=== PATIENT | male | born 1985 | race Caucasian/White ===

== ENCOUNTER 2016-08-04 18:29 | Emergency (ER) | payer BC ==
[~2016-08-04] VITALS: Ht 170.2 cm; Wt 79.5 kg
[~2016-08-04 18:29] MED LIST: HYDR-5688 PO
[2016-08-04 18:33] VITALS: Ht 170.2 cm; Wt 79.5 kg
[2016-08-04] MEDS ORDERED: KETOROLAC TROMETHAMINE 30 MG/ML VIAL IV STA (18:46)
[2016-08-04] MEDS ORDERED: SODIUM CHLORIDE 0.9% 1000ML 1,000 ML IV STA (18:46)
[2016-08-04] MEDS ORDERED: METHYLPREDNISOLONE 125 MG VIAL IV STA (18:46)
[2016-08-04] MEDS ORDERED: ALBU18002 INH (18:57)
[2016-08-04] MEDS ORDERED: AZITTAB PO (18:57)
[2016-08-04] MEDS ORDERED: ADVIN50/60 INH (18:57)
[2016-08-04] MEDS ORDERED: MAGIC SWIZZLE PO ONE (19:00)
[2016-08-04] MEDS ORDERED: PRED50TA PO (19:53)
[2016-08-04] MEDS ORDERED: MBXC PO (19:53)
[2016-08-04 20:10] VITALS: BP 139/86; PULSE 90; TEMP 36.9; O2SAT 99
--- NOTE | 2016-08-04 20:55 | EMERGENCY ROOM VISIT NOTE ---
History Report prepared by Triston: Rivera Tran Under the Supervision of: Dr. Gary Judge D.O. First contact with patient: 18:36 Chief Complaint: SORETHROAT Stated Complaint: REFERRED BY TESTED POS. FOR STREP History of Present Illness The patient is a 30 year old male who presents to the Emergency Room with complaints of a persistent sore throat since being diagnosed with Strep throat three days ago. The patient had positive culture results for Strep. He was started on Azithromycin which he has been taking for three days. He is allergic to Penicillins. The patient's throat has not improved since starting the antibiotics. He also complains of dizziness and left ear pain. The patient has not been able to eat or drink secondary to pain with swallowing. The patient called [facility] today and was referred to the ED. The patient's son also tested positive for strep. Patient denies headache, change in vision, neck stiffness, trouble opening his mouth, fevers greater than 100.4, chest pain , shortness of breath, nausea, and vomiting. Source of History: patient Onset: three days ago Position: throat Quality: other (sore) Timing: other (persistent) Modifying Factors (Worsening): other (swallowing) Associated Symptoms: No fevers, No headache, No chest pain, No SOB, No nausea, No vomiting, No melena, No diarrhea, No urinary symptoms Review of Systems See HPI for pertinent positives & negatives. A total of 10 systems reviewed and were otherwise negative. Past Medical & Surgical Medical Problems: (1) Asthma (2) Chronic back pain (3) [place] Teeth Removal Family History Hypertension Social History Smoking Status: Never Smoker Alcohol Use: occasionally Drug Use: none Marital Status: Housing Status: lives with family Occupation Status: employed Current/Historical Medications Scheduled Azithromycin (Zithromax Z-Hugo), 250 MG PO UD Fluticasone Prop/Salmeterol (Advair Diskus 500/50 60 Dose), 1 PUFF INH BID Magic Swizzle (Magic Swizzle - SUCRALFA/ALUM/MAG/DIPHEN/LIDO), 3-4 TSP PO ACHS Prednisone (Prednisone), 50 MG PO DAILY Scheduled PRN Albuterol Sulfate (Proair Respiclick), 2 PUFFS INH UD PRN for SOB/Wheezing Allergies Coded Allergies: Amoxicillin (Verified Allergy, Unknown, hives, 12/28/15) Physical Exam Vital Signs Date Time Temp Pulse Resp B/P (MAP) Pulse Ox O2 Delivery O2 Flow Rate FiO2 08/04/16 20:10 36.9 90 16 139/86 99 08/04/16 18:33 36.9 90 16 139/86 99 Room Air Physical Exam GENERAL: Sitting up in bed, alert, well appearing, well nourished, no distress, non-toxic EYE EXAM: normal conjunctiva. OROPHARYNX: Tolerates secretions, posterior pharynx is erythematous with bilateral exudates at the tonsillar folds, no appreciable dental abscess, submandibular region is soft, talks in full sentences, voice is not hoarse. NECK: supple, no nuchal rigidity, no adenopathy, non-tender, no stridor. LUNGS: Clear to auscultation. Normal chest wall mechanics HEART: no murmurs, S1 normal and S2 normal ABDOMEN: abdomen soft, non-tender, normo-active bowel sounds, no masses, no rebound or guarding. SKIN: no rashes and no bruising NEURO EXAM: Normal sensorium, Medical Decision & Procedures Medications Administered Medications (Trade) Dose Ordered Sig/Lanie Route Start Time Stop Time Status Last Admin Dose Admin Ketorolac Tromethamine (Toradol Inj) 30 mg NOW STAT IV 08/04/16 18:46 08/04/16 18:47 DC 08/04/16 19:23 30 MG Sodium Chloride 1,000 ml @ 999 mls/hr Q1H1M STAT IV 08/04/16 18:46 08/04/16 19:46 DC 08/04/16 19:23 999 MLS/HR Methylprednisolone Sodium Succinate (Solu-Medrol IV) 125 mg NOW STAT IV 08/04/16 18:46 08/04/16 18:47 DC 08/04/16 19:23 125 MG ED Course ED COURSE: Vital signs were reviewed and showed hypertension. The patients medical record was reviewed The above diagnostic studies were performed and reviewed. ED treatments and interventions as stated above. 1837: The patient was evaluated in room B8. A complete history and physical examination was performed. 6: Solu-Medrol 125 mg IV, NSS 1000 ml @ 999 mls/hr, Toradol 30 mg IV. 1909: Records from [facility] obtained. The patient's cultures grew out Group A Strep. 1914: The patient is getting his medications now. 1954: Upon reevaluation, the patient is doing fine.I discussed my findings with the patient and he understands and agrees with the treatment plan. Based on the patients age, coexisting illnesses, exam and lab findings the decision to treat as an outpatient was made. The patient remained stable while under my care. The patient appeared well at the time of discharge. Medical Decision Differential diagnosis: Etiologies such as viral syndrome, tonsillitis, streptococcal pharyngitis, mononucleosis, peritonsillar abscess, retropharyngeal abscess, otitis, pneumonia , influenza, as well as others were entertained. Medication Reconciliation: I attest that I have personally reviewed the patient' s current medication list. Blood Pressure Screening: The patient was found to have a slightly elevated blood pressure due to circumstances. I do not believe that the patient requires hypertension monitoring. Patient is a 30-year-old male who presents the ER for sore throat. Culture was positive at PCP for strep throat. Placed on azithromycin secondary to allergies. No signs of peritonsillar abscess, retropharyngeal abscess or Salazar angina. Voice normal. Tolerating secretions. Full range of motion of neck. Patient is given IV fluids, steroids and magic swizzle. He was also given Toradol. He had improvement of his symptoms but not resolution. He is discharged follow-up with PCP. Discussed with Pt concerning signs and symptoms to watch out for. Pt was instructed to follow up with their PCP and discussed with the patient their option to return to the ED at anytime for persistent or worsening symptoms. The appropriate anticipatory guidance and out-patient management, including indications for return to the emergency department, were explained at length to the patient and understood. Impression Primary Impression: Strep pharyngitis Scribe Attestation The scribe's documentation has been prepared under my direction and personally reviewed by me in its entirety. I confirm that the note above accurately reflects all work, treatment, procedures, and medical decision making performed by me. Departure Information Dispostion Home / Self-Care Prescriptions Magic Swizzle (Magic Swizzle - SUCRALFA/ALUM/MAG/DIPHEN/LIDO) 240 Ml Susp 3-4 TSP PO ACHS, #240 ML 100ml Sucralfate 50ml Maalox 50ml Diphenhydramine 40ml 2% Aq. Lidocaine Swish and Swallow Prov: Gary Judge, DO 08/04/16 Prednisone (PREDNISONE) 50 Mg Tab 50 MG PO DAILY for 4 Days, TAB Prov: Gary Judge, DO 08/04/16 Referrals No Doctor, Assigned (PCP) Forms HOME CARE DOCUMENTATION FORM, IMPORTANT VISIT INFORMATION, Work Instructions Patient Instructions ED Strep Pharyngitis [place] [facility] Additional Instructions Please follow up with your primary care doctor with in the next 24 hours. Any worsening of your symptoms, please return to the ED immediately. This includes trouble turning her neck, inability to swallow, trouble breathing, fevers greater than 100.4, or any other concerning signs or symptoms from your standpoint. Please take steroids as prescribed. Please use magic swizzle as needed for swallowing.
[2016-08-17] MEDS ORDERED: amoxicillin PO (18:35)
[2016-08-17] MEDS ORDERED: CEFT1INJ57 IV (18:35)
[2016-08-17] MEDS ORDERED: LCTX PO (18:35)
[2016-08-17] MEDS ORDERED: BND25 PO (18:46)
== END 2016-08-04 20:10 | disposition home or self-care (01) ==
LOC: C.EDB 18:31
DX: J02.0 Streptococcal pharyngitis (principal); J45.909 Unspecified asthma, uncomplicated; Z79.899 Other long term (current) drug therapy; Z88.1 Allergy status to other antibiotic agents; Z82.49 Family history of ischemic heart disease and other diseases of the circulatory system

== ENCOUNTER 2016-08-10 12:23 | Inpatient (IN) | payer BC ==
[2016-08-10] VITALS (20 sets, daily range): BP systolic 61–93; BP diastolic 33–48; PULSE 106–133; TEMP 38.2–39.6; O2SAT 88–100; Ht 170.2 cm; Wt 82.9 kg
[~2016-08-10] VITALS: Ht 170.2 cm; Wt 82.9 kg
[~2016-08-10 12:23] MED LIST changes: +ADVIN50/60 INH; +ALBU18002 INH; +AZITTAB PO; -HYDR-5688 PO; +MBXC PO
[2016-08-10] MEDS ORDERED: ONDANSETRON INJ 2 MG/ML 2 ML VIAL ONE (12:54)
[2016-08-10] MEDS ORDERED: SODIUM CHLORIDE 0.9% 1000ML 300 ML IV STA (12:56)
[2016-08-10] MEDS ORDERED: ONDANSETRON INJ 2 MG/ML 2 ML VIAL IV STA (12:56)
[2016-08-10 13:00] LABS: HEMATOCRIT 47.7 % (42-52); MEAN CORPUSCULAR HEMOGLOBIN 29.4 pg (25-34); MEAN CORPUSCULAR HGB CONC 34.6 g/dl (32-36); MEAN PLATELET VOLUME 9.4 fL (7.4-10.4); PLATELET COUNT 196 K/uL (130-400); RED BLOOD COUNT 5.61 M/uL (4.7-6.1); WHITE BLOOD COUNT 8.57 K/uL (4.8-10.8)
[2016-08-10 13:19] LABS: BUN/CREATININE RATIO 13.4 (10-20); CALCIUM 9.5 mg/dl (8.5-10.1); CREATININE 1.7 mg/dl (0.60-1.40); POTASSIUM 3.1 mmol/L (3.5-5.1)
[2016-08-10 13:22] LABS: ALB/GLOB RATIO 1.3 (0.9-2)
[2016-08-10] MEDS ORDERED: MoRPHine SULFATE 10 MG/ML CARP/VIAL IV STA (13:30)
[2016-08-10] MEDS ORDERED: MoRPHine SULFATE 2 MG/ML CARP ONE (13:37)
[2016-08-10] MEDS ORDERED: MoRPHine SULFATE 4 MG/ML 1 ML CARP\\VIAL ONE (13:37)
[2016-08-10 14:08] LABS: COMPLETE YES; LYMPH ABS # 1.59 K/uL (1.2-3.4); LYMPHOCYTE % 18.6 %; METAMYELOCYTE % 3.5 %; MYELOCYTE % 1.8 %; NEUTROPHILS % 75.2 %; VACUOLIZATION 2+
[2016-08-10] MEDS ORDERED: SODIUM CHLORIDE 0.9% 1000ML 1,000 ML IV STA ×2 (14:10→16:29)
[2016-08-10] MEDS ORDERED: POTASSIUM CHLORIDE 10 MEQ / 100ML WTR IV STA (14:10)
[2016-08-10] MEDS ORDERED: OPTIRAY 320 IV PRN (14:15)
[2016-08-10 16:00] LABS: URINE APPEARANCE CLEAR (CLEAR); URINE BILIRUBIN NEG (NEG); URINE COLOR YELLOW; URINE EPITHELIAL CELL AUTO >30 /lpf (0-5); URINE NITRITE NEG (NEG); URINE SPECIFIC GRAVITY 1.015 (1.000-1.030); UROBILINOGEN NEG (NEG); ZZUR CULT IF INDIC CLEAN CATCH NO
[2016-08-10 16:01] LABS: MANUAL MICROSCOPIC REQUIRED? NO; REVIEW REQ? YES
--- NOTE | 2016-08-10 16:14 | DIAGNOSTIC IMAGING REPORT ---
CT SCAN OF THE ABDOMEN AND PELVIS WITHOUT IV CONTRAST CLINICAL HISTORY: Vomiting. Generalized abdominal pain. Back pain. COMPARISON STUDY: Pelvic radiograph dated 12/28/2015. TECHNIQUE: CT scan of the abdomen and pelvis is performed from the lung bases to the proximal femora. Images are reviewed in the axial, sagittal, and coronal planes. IV contrast was not administered for this examination as per the referring clinician. Note that the examination is suboptimal without IV contrast. Oral contrast was utilized. Examination is also degraded by motion artifact. Automated dose control exposure was utilized. CT DOSE: 386.67 mGy.cm FINDINGS: Lung bases: The heart is normal in size and without pericardial effusion. The lung bases are clear noting dependent atelectasis. Liver: The unenhanced liver is normal in size, contour, and attenuation. There is no intrahepatic biliary ductal dilatation. Gallbladder: Unremarkable. Spleen: Normal in size and attenuation. Pancreas: Unremarkable. Adrenal glands: Unremarkable. Kidneys: The unenhanced kidneys are normal in size and without hydronephrosis. There are no renal calculi identified. There is no evidence of contour deforming renal mass lesion. There is nonspecific bilateral perinephric stranding and trace perinephric fluid, left greater than right. Abdominal vasculature: The abdominal aorta is normal in course and caliber. Bowel: The small bowel and colon are normal in course and caliber. Liquid stool is suggested in the colon. There is no colonic wall thickening or inflammation. Portions of a normal appendix are likely identified in the right lower quadrant. This is not well assessed. Peritoneum: There is no intraperitoneal free air or abdominal ascites. There is a small fat-containing umbilical hernia. Lymphadenopathy: None. Pelvic viscera: The bladder, prostate, and seminal vesicles are normal as visualized. Surgical clips are noted along the spermatic cord bilaterally. Skeletal structures: No lytic or blastic lesions are seen. IMPRESSION: 1. Suboptimal examination without IV contrast. 2. There is nonspecific bilateral perinephric stranding and trace fluid. Correlate clinically and with laboratory findings/urinalysis for evidence of pyelonephritis or acute renal injury. No renal calculi are identified. 3. Liquid stool is noted in the colon. Correlate clinical for evidence of a diarrheal illness. No colonic wall thickening or pericolonic inflammation is seen. Electronically signed by: Dwayne Petersen M.D. 08/10/2016 4:12 PM Dictated Date/Time: 08/10/2016 4:03 PM
[2016-08-10] MEDS ORDERED: CIPROFLOXACIN 400MG / 200ML D5W IV STA (16:42)
[2016-08-10] MEDS ORDERED: METRONIDAZOLE 500MG / 100ML NSS IV STA (16:42)
[2016-08-10] MEDS ORDERED: VANCOMYCIN 1GM/270ML NSS IV STA (17:13)
[2016-08-10] MEDS ORDERED: NSS + 20MEQ KCL 1000ML 1,000 ML IV SCH (17:31)
[2016-08-10 17:39] LABS: BENZODIAZEPINE, URINE NEG (NEG); COCAINE,URINE NEG (NEG); PHENCYCLIDINE, URINE NEG (NEG)
[2016-08-10] MEDS ORDERED: LEVALBUTEROL 1.25MG/3ML NEB INH PRN (17:45)
[2016-08-10] MEDS ORDERED: VANCOMYCIN INJ 1,600 MG in SODIUM CHLORIDE 0.9% 250ML 250 ML IV STA (17:59)
--- NOTE | 2016-08-10 18:05 | History and Physical ---
History & Physical Date & Time of Service: Aug 10, 2016 at 18:01 Chief Complaint: Vomiting, Dizzy, Body Tingling Primary Care Physician: No Doctor, Assigned History of Present Illness Source: patient, family Patient is a 30 yr male with PMH of Asthma, GERD and no other significant medical history presents with fever, nausea, vomiting, diarrhea and abdominal pain since this morning. Patient is a very poor historian and most of the information is obtained from ED staff and patient's . As per family, patient was doing well until this morning, when he developed nausea, vomiting and diarrhea associated with fever and chills and abdominal pain. Denies any blood in vomitus or stools. States having generalized abdominal pain which is constant and is harp in quality. Patient's history is unreliable. Initially reported no chest pain and currently states having sharp diffuse pain. Patient completed an azithromycin/Prednisone course for a Strep.Pharyngitis. Patient's is unaware of any recent travel, drug use, sick contacts or similar symptoms previously. No other relevant history could be obtained. Past Medical/Surgical History Medical Problems: (1) Asthma Status: Chronic (2) Chronic back pain Status: Chronic (3) [place] Teeth Removal Status: Chronic Family History Hypertension Could not be obtained. Social History Smoking Status: Former Smoker Alcohol Use: socially Drug Use: none Marital Status: Occupational Status: employed Multi-Drug Resistant Organisms History of MDRO: No Allergies Coded Allergies: Amoxicillin (Verified Allergy, Unknown, hives, 12/28/15) Home Medications Scheduled Fluticasone Prop/Salmeterol (Advair Diskus 500/50 60 Dose), 1 PUFF INH BID Scheduled PRN Albuterol Sulfate (Proair Respiclick), 2 PUFFS INH UD PRN for SOB/Wheezing Review of Systems Could not be obtained because of patient's mental status Physical Exam Vital Signs Date Time Temp Pulse Resp B/P (MAP) Pulse Ox O2 Delivery O2 Flow Rate FiO2 08/10/16 16:59 140 94/48 08/10/16 16:28 140 20 78/44 96 Room Air 08/10/16 14:37 137 08/10/16 14:23 150 22 128/59 97 08/10/16 12:26 36.8 135 20 107/49 97 Room Air General Appearance: WD/WN, + mild distress, + pertinent finding (Drowsy, lethargic) Head: normocephalic, atraumatic Eyes: normal inspection, PERRL, + pertinent finding (Sclera congested) ENT: normal ENT inspection, hearing grossly normal Neck: supple, trachea midline Respiratory/Chest: lungs clear, normal breath sounds, no respiratory distress, no accessory muscle use Cardiovascular: regular rate, rhythm, no edema, no murmur, + tachycardia Abdomen/GI: normal bowel sounds, soft, + tenderness (Diffuse tenderness, + flank tenderness) Back: normal inspection Extremities/Musculoskelatal: normal inspection, no pedal edema Neurologic/Psych: + pertinent finding (Lethargic, grossly no focal deficits. Complete neuro exam could not be performed) Skin: normal color, warm/dry Diagnostics Laboratory Results Results Past 24 Hours Test 08/10/16 12:50 08/10/16 15:10 08/10/16 16:57 08/10/16 16:58 Range/Units White Blood Count 8.57 4.8-10.8 K/uL Red Blood Count 5.61 4.7-6.1 M/uL Hemoglobin 16.5 14.0-18.0 g/dL Hematocrit 47.7 42-52 % Mean Corpuscular Volume 85.0 80-100 fL Mean Corpuscular Hemoglobin 29.4 25-34 pg Mean Corpuscular Hemoglobin Concent 34.6 32-36 g/dl Platelet Count 196 130-400 K/uL Mean Platelet Volume 9.4 7.4-10.4 fL RDW Standard Deviation 37.9 36.4-46.3 fL RDW Coefficient of Variation 12.3 11.5-14.5 % Neutrophils % (Manual) 75.2 % Lymphocytes % (Manual) 18.6 % Monocytes % (Manual) 0.9 % Metamyelocytes % 3.5 % Myelocytes % 1.8 % Neutrophils # (Manual) 6.44 1.4-6.5 K/uL Total Absolute Neutrophils 6.44 1.4-6.5 K/uL Lymphocytes # (Manual) 1.59 1.2-3.4 K/uL Total Absolute Lymphocytes 1.59 1.2-3.4 K/uL Monocytes # (Manual) 0.08 0.11-0.59 K/uL Metamyelocytes # 0.30 0-0 K/uL Myelocytes # 0.15 0-0 K/uL Toxic Vacuolation 2+ Sodium Level 140 136-145 mmol/L Potassium Level 3.1 3.5-5.1 mmol/L Chloride Level 104 98-107 mmol/L Carbon Dioxide Level 25 21-32 mmol/L Anion Gap 11.0 3-11 mmol/L Blood Urea Nitrogen 23 7-18 mg/dl Creatinine 1.70 0.60-1.40 mg/dl Est Creatinine Clear Calc Drug Dose 64.4 ml/min Estimated GFR () 61.4 Estimated GFR (Non- 52.9 BUN/Creatinine Ratio 13.4 10-20 Random Glucose 108 70-99 mg/dl Calcium Level 9.5 8.5-10.1 mg/dl Total Bilirubin 0.9 0.2-1 mg/dl Aspartate Amino Transf (AST/SGOT) 16 15-37 U/L Alanine Aminotransferase (ALT/SGPT) 27 12-78 U/L Alkaline Phosphatase 110 45-117 U/L Total Protein 7.2 6.4-8.2 gm/dl Albumin 4.0 3.4-5.0 gm/dl Globulin 3.2 2.5-4.0 gm/dl Albumin/Globulin Ratio 1.3 0.9-2 Lipase 140 73-393 U/L Urine Color YELLOW Urine Appearance CLEAR CLEAR Urine pH 5.0 4.5-7.5 Urine Specific [place] 1.015 1.000-1.030 Urine Protein 1+ NEG Urine Glucose (UA) NEG NEG Urine Ketones TRACE NEG Urine Occult Blood 2+ NEG Urine Nitrite NEG NEG Urine Bilirubin NEG NEG Urine Urobilinogen NEG NEG Urine Leukocyte Esterase NEG NEG Urine WBC (Auto) 1-5 0-5 /hpf Urine RBC (Auto) 5-10 0-4 /hpf Urine Hyaline Casts (Auto) 1-5 0-5 /lpf Urine Epithelial Cells (Auto) >30 0-5 /lpf Urine Bacteria (Auto) NEG NEG Urine Renal Epithelial Cells 0-5 /lpf Urine Opiates Screen NEG NEG Urine Methadone, Qualitative NEG NEG Urine Barbiturates NEG NEG Urine Phencyclidine (PCP) Level NEG NEG Ur Amphetamine/Methamphetamine NEG NEG MDMA (Ecstasy) Screen NEG NEG Urine Benzodiazepines Screen NEG NEG Urine Cocaine Metabolite NEG NEG Urine Marijuana (THC) NEG NEG Bedside Troponin I < 0.030 0-0.045 ng/ml Bedside Lactic Acid Venous 5.02 0.90-1.70 mmol/L Test 08/10/16 17:50 Range/Units Microbiology Results 08/10/16 Blood Culture, Namita Batch Pending 08/10/16 Blood Culture, Received Pending 08/10/16 Shiga Toxin Test, Received Pending 08/10/16 Stool Culture, Received Pending 08/10/16 C.difficile Toxin B Gene (PCR), Received Pending 08/10/16 Urine Culture, Received Pending Diagnostic Radiology CT ABD: 1. Suboptimal examination without IV contrast. 2. There is nonspecific bilateral perinephric stranding and trace fluid. Correlate clinically and with laboratory findings/urinalysis for evidence of pyelonephritis or acute renal injury. No renal calculi are identified. 3. Liquid stool is noted in the colon. Correlate clinical for evidence of a diarrheal illness. No colonic wall thickening or pericolonic inflammation is seen. Impression Assessment and Plan SEPSIS Metabolic Encephalopathy Patient presented with, N/V/D/abd pain: Hypotension, Tachycardia, tachypnea, elevated lactate levels Recent Step.Pharyngitis (Completed Azithromycin) Unclear source of infection: GI/ infection ? Bacteremia CT ABD: showed nonspecific bilateral perinephric stranding Urine Tox screen: Negative Start board spectrum antibiotics: Vanco and Cefepime Blood/Urine cultures Check CXR, renal USD UA:2+ occult blood Stool studies including c.diff Aggressive IV fluids, trend lactate levels Check random cortisol Monitor in ICU, may need pressors if deteriorates Discussed with Controls Technician . Appreciate help SHERRI: Cr:1.7 Monitor renal function Avoid nephrotoxic agents Hypokalemia: Likely secondary to GI losses Will replace and monitor ? Chest Pain: EKG: Sinus tachycardia, non specific ST changes QTC: prolonged Trend cardiac enzymes 1st set of Troponin: Negative Asthma: Continue home inhalers DVT Px: Heparin SQ Code Status: Full Code Disposition: Monitor in ICU VTE Prophylaxis VTE Risk Assessment Done? Y/N: Yes Risk Level: Low
[2016-08-10] MEDS ORDERED: ACETAMINOPHEN 1000 MG/100 ML IV IV ONE (18:51)
--- NOTE | 2016-08-10 18:53 | DIAGNOSTIC IMAGING REPORT ---
SINGLE VIEW CHEST CLINICAL HISTORY: Atypical chest pain. FINDINGS: An AP, portable, upright chest radiograph is compared to study dated 01/12/2015. The examination is degraded by portable technique, apical lordotic positioning, and patient rotation. The cardiomediastinal silhouette is unremarkable. The pulmonary vasculature appears congested. There is no lobar consolidation. Trace pleural effusions are questioned. No pneumothorax is seen. The bony thorax is grossly intact. IMPRESSION: 1. There is apparent pulmonary vascular congestion. Clinical correlation will be required. 2. Suspect trace pleural effusions. Electronically signed by: Dwayne Petersen M.D. 08/10/2016 6:52 PM Dictated Date/Time: 08/10/2016 6:50 PM
[2016-08-10] MEDS ORDERED: VANCOMYCIN CONSULT ACTIVE PRN (19:00)
[2016-08-10] MEDS ORDERED: VANCOMYCIN INJ 2,000 MG in SODIUM CHLORIDE 0.9% 500ML 500 ML IV ONE (19:00)
--- NOTE | 2016-08-10 19:09 | EMERGENCY ROOM VISIT NOTE ---
History Report prepared by Triston: Mitesh Mattson Under the Supervision of: Dr. Jeramie Hernandez M.D. First contact with patient: 13:23 Chief Complaint: VOMITING Stated Complaint: VOMITING, DIZZY, BODY TINGLING Nursing Triage Summary: pt came home from work at 0600 and was fine, awoke at 1000 n/v/d. pt c/o lower abd and back pain. History of Present Illness The patient is a 30 year old male who presents to the Emergency Room with complaints of a persistent illness that started around 3 and a half hours ago. Per the patient's , the patient came home from work 4 hours before the symptoms came on, and was fine. The patient woke up with the symptoms at 1000, and could not stop shaking. Around 40 minutes later, he started having multiple episodes of vomiting and diarrhea. The patient denies any blood in the diarrhea. He felt like he had a fever, but did not take his temperature. He complains of low back pain and cramping abdominal pain. The patient just finished a round of Azithromycin 3 days ago for strep pharyngitis. He denies any urinary symptoms. The patient has nobody sick at home, but he is a records officer, and works with some people from different countries. The patient has not personally had any foreign travel. He has no history of C. difficile. Source of History: patient, spouse/significant other Onset: 3 and a half hours ago Position: other (global - illness) Symptom Intensity: severe Quality: other (vomiting and diarrhea) Timing: other (persistent) Associated Symptoms: + vomiting, + abdominal pain, + back pain (low), + diarrhea, No urinary symptoms Note: Associated symptoms: Persistent shaking. Review of Systems See HPI for pertinent positives & negatives. A total of 10 systems reviewed and were otherwise negative. Past Medical & Surgical Medical Problems: (1) Asthma (2) Chronic back pain (3) Diarrhea (4) Nausea & vomiting (5) [employer] Teeth Removal Family History Hypertension Social History Smoking Status: Former Smoker Alcohol Use: occasionally Drug Use: none Marital Status: Housing Status: lives with family Occupation Status: employed Current/Historical Medications Scheduled Fluticasone Prop/Salmeterol (Advair Diskus 500/50 60 Dose), 1 PUFF INH BID Scheduled PRN Albuterol Sulfate (Proair Respiclick), 2 PUFFS INH UD PRN for SOB/Wheezing Allergies Coded Allergies: Amoxicillin (Verified Allergy, Unknown, hives, 12/28/15) Physical Exam Vital Signs Date Time Temp Pulse Resp B/P (MAP) Pulse Ox O2 Delivery O2 Flow Rate FiO2 08/10/16 17:30 128 28 08/10/16 17:15 133 27 08/10/16 17:00 136 21 08/10/16 16:59 140 94/48 08/10/16 16:28 140 20 78/44 96 Room Air 08/10/16 14:37 137 08/10/16 14:23 150 22 128/59 97 08/10/16 12:26 36.8 135 20 107/49 97 Room Air Physical Exam Constitutional: Vital signs reviewed. Eyes: Pupils are equal round reactive to light. Conjunctiva are noninjected. ENT: Pharynx is clear without erythema or exudate. Mucous membranes are dry. Neck supple without meningeal signs. Respiratory: Clear to auscultation bilaterally. Breath sounds are equal bilaterally. Cardiovascular: Tachycardic rate and regular rhythm. No rubs or gallops. GI: Soft, nondistended. Diffuse low abdominal tenderness with voluntary guarding. Bowel sounds are present. Musculoskeletal: No peripheral edema. No lower extremity tenderness. No midline tenderness to the thoracic or lumbosacral spine. Integumentary: No cyanosis. Neurological: The patient is awake and alert. No focal deficits. Psychiatric: Anxious. Medical Decision & Procedures ER Provider Diagnostic Interpretation: CT results as stated below per my review and radiologist interpretation. CT SCAN OF THE ABDOMEN AND PELVIS WITHOUT IV CONTRAST CLINICAL HISTORY: Vomiting. Generalized abdominal pain. Back pain. COMPARISON STUDY: Pelvic radiograph dated 12/28/2015. TECHNIQUE: CT scan of the abdomen and pelvis is performed from the lung bases to the proximal femora. Images are reviewed in the axial, sagittal, and coronal planes. IV contrast was not administered for this examination as per the referring clinician. Note that the examination is suboptimal without IV contrast. Oral contrast was utilized. Examination is also degraded by motion artifact. Automated dose control exposure was utilized. CT DOSE: 386.67 mGy.cm FINDINGS: Lung bases: The heart is normal in size and without pericardial effusion. The lung bases are clear noting dependent atelectasis. Liver: The unenhanced liver is normal in size, contour, and attenuation. There is no intrahepatic biliary ductal dilatation. Gallbladder: Unremarkable. Spleen: Normal in size and attenuation. Pancreas: Unremarkable. Adrenal glands: Unremarkable. Kidneys: The unenhanced kidneys are normal in size and without hydronephrosis. There are no renal calculi identified. There is no evidence of contour deforming renal mass lesion. There is nonspecific bilateral perinephric stranding and trace perinephric fluid, left greater than right. Abdominal vasculature: The abdominal aorta is normal in course and caliber. Bowel: The small bowel and colon are normal in course and caliber. Liquid stool is suggested in the colon. There is no colonic wall thickening or inflammation. Portions of a normal appendix are likely identified in the right lower quadrant. This is not well assessed. Peritoneum: There is no intraperitoneal free air or abdominal ascites. There is a small fat-containing umbilical hernia. Lymphadenopathy: None. Pelvic viscera: The bladder, prostate, and seminal vesicles are normal as visualized. Surgical clips are noted along the spermatic cord bilaterally. Skeletal structures: No lytic or blastic lesions are seen. IMPRESSION: 1. Suboptimal examination without IV contrast. 2. There is nonspecific bilateral perinephric stranding and trace fluid. Correlate clinically and with laboratory findings/urinalysis for evidence of pyelonephritis or acute renal injury. No renal calculi are identified. 3. Liquid stool is noted in the colon. Correlate clinical for evidence of a diarrheal illness. No colonic wall thickening or pericolonic inflammation is seen. Electronically signed by: Dwayne Petersen M.D. 08/10/2016 4:12 PM Dictated Date/Time: 08/10/2016 4:03 PM Laboratory Results 08/10/16 12:50 Red Blood Count 5.61, Mean Corpuscular Volume 85.0, Mean Corpuscular Hemoglobin 29.4, Mean Corpuscular Hemoglobin Concent 34.6, Mean Platelet Volume 9.4 08/10/16 12:50 Test 08/10/16 12:50 08/10/16 15:10 08/10/16 16:57 08/10/16 16:58 White Blood Count 8.57 K/uL (4.8-10.8) Red Blood Count 5.61 M/uL (4.7-6.1) Hemoglobin 16.5 g/dL (14.0-18.0) Hematocrit 47.7 % (42-52) Mean Corpuscular Volume 85.0 fL (80-100) Mean Corpuscular Hemoglobin 29.4 pg (25-34) Mean Corpuscular Hemoglobin Concent 34.6 g/dl (32-36) Platelet Count 196 K/uL (130-400) Mean Platelet Volume 9.4 fL (7.4-10.4) RDW Standard Deviation 37.9 fL (36.4-46.3) RDW Coefficient of Variation 12.3 % (11.5-14.5) Neutrophils % (Manual) 75.2 % Lymphocytes % (Manual) 18.6 % Monocytes % (Manual) 0.9 % Metamyelocytes % 3.5 % Myelocytes % 1.8 % Neutrophils # (Manual) 6.44 K/uL (1.4-6.5) Total Absolute Neutrophils 6.44 K/uL (1.4-6.5) Lymphocytes # (Manual) 1.59 K/uL (1.2-3.4) Total Absolute Lymphocytes 1.59 K/uL (1.2-3.4) Monocytes # (Manual) 0.08 K/uL (0.11-0.59) Metamyelocytes # 0.30 K/uL (0-0) Myelocytes # 0.15 K/uL (0-0) Toxic Vacuolation 2+ Prothrombin Time 11.0 SECONDS (9.0-12.0) Prothromb Time International Ratio 1.0 (0.9-1.1) Anion Gap 11.0 mmol/L (3-11) Est Creatinine Clear Calc Drug Dose 64.4 ml/min Estimated GFR () 61.4 Estimated GFR (Non- 52.9 BUN/Creatinine Ratio 13.4 (10-20) Calcium Level 9.5 mg/dl (8.5-10.1) Total Bilirubin 0.9 mg/dl (0.2-1) Aspartate Amino Transf (AST/SGOT) 16 U/L (15-37) Alanine Aminotransferase (ALT/SGPT) 27 U/L (12-78) Alkaline Phosphatase 110 U/L (45-117) Total Protein 7.2 gm/dl (6.4-8.2) Albumin 4.0 gm/dl (3.4-5.0) Globulin 3.2 gm/dl (2.5-4.0) Albumin/Globulin Ratio 1.3 (0.9-2) Lipase 140 U/L (73-393) Random Cortisol 26.64 mcg/dl Anti-Streptolysin O Antibody Screen NEG IU/ml (<200 IU) Urine Color YELLOW Urine Appearance CLEAR (CLEAR) Urine pH 5.0 (4.5-7.5) Urine Specific [place] 1.015 (1.000-1.030) Urine Protein 1+ (NEG) Urine Glucose (UA) NEG (NEG) Urine Ketones TRACE (NEG) Urine Occult Blood 2+ (NEG) Urine Nitrite NEG (NEG) Urine Bilirubin NEG (NEG) Urine Urobilinogen NEG (NEG) Urine Leukocyte Esterase NEG (NEG) Urine WBC (Auto) 1-5 /hpf (0-5) Urine RBC (Auto) 5-10 /hpf (0-4) Urine Hyaline Casts (Auto) 1-5 /lpf (0-5) Urine Epithelial Cells (Auto) >30 /lpf (0-5) Urine Bacteria (Auto) NEG (NEG) Urine Renal Epithelial Cells /lpf (0-5) Urine Opiates Screen NEG (NEG) Urine Methadone, Qualitative NEG (NEG) Urine Barbiturates NEG (NEG) Urine Phencyclidine (PCP) Level NEG (NEG) Ur Amphetamine/Methamphetamine NEG (NEG) MDMA (Ecstasy) Screen NEG (NEG) Urine Benzodiazepines Screen NEG (NEG) Urine Cocaine Metabolite NEG (NEG) Urine Marijuana (THC) NEG (NEG) Bedside Troponin I < 0.030 ng/ml (0-0.045) Bedside Lactic Acid Venous 5.02 mmol/L (0.90-1.70) Laboratory results as reviewed by me. Medications Administered Medications (Trade) Dose Ordered Sig/Lanie Route Start Time Stop Time Status Last Admin Dose Admin Sodium Chloride 300 ml @ 999 mls/hr Q19M STAT IV 08/10/16 12:56 08/10/16 13:14 DC 08/10/16 12:56 999 MLS/HR Ondansetron HCl (Zofran Inj) 4 mg NOW STAT IV 08/10/16 12:56 08/10/16 12:57 DC 08/10/16 12:56 4 MG Morphine Sulfate (MoRPHine SULFATE INJ) 2 mg STK-MED ONCE .ROUTE 08/10/16 13:37 08/10/16 13:38 DC 08/10/16 13:41 2 MG Morphine Sulfate (MoRPHine SULFATE INJ) 4 mg STK-MED ONCE .ROUTE 08/10/16 13:37 08/10/16 13:38 DC 08/10/16 13:40 4 MG Sodium Chloride 1,000 ml @ 999 mls/hr Q1H1M STAT IV 08/10/16 14:10 08/10/16 15:10 DC 08/10/16 14:21 999 MLS/HR Potassium Chloride (Kcl 10 Meq / Wtr) 10 meq NOW STAT IV 08/10/16 14:10 08/10/16 14:12 DC 08/10/16 14:22 10 MEQ Sodium Chloride 1,000 ml @ 999 mls/hr Q1H1M STAT IV 08/10/16 16:29 08/10/16 17:29 DC 08/10/16 16:33 999 MLS/HR Ciprofloxacin/ Dextrose (Cipro / D5W) 400 mg NOW STAT IV 08/10/16 16:42 08/10/16 16:43 DC 08/10/16 16:48 400 MG Metronidazole (Flagyl / Nss) 500 mg NOW STAT IV 08/10/16 16:42 08/10/16 16:43 DC 08/10/16 16:54 500 MG ECG Indication: vomiting Rate (beats per minute): 141 Rhythm: sinus tachycardia Findings: no ectopy, other (RSR pattern in anterior leads, nonspecific ST changes) ED Course 1325: The patient was evaluated in room A2. A complete history and physical exam was performed. 1410: Ordered Kcl 10 Meq / Wtr 10 meq IV, NSS 1000 ml @ 999 mls/hr IV. 1458: I reevaluated the patient and discussed the test results with him. He is feeling better but his heart rate is still in the 140s. His second liter of normal saline is infusing. 1635: I reevaluated the patient and his pressure is now 78/44. He is answering questions and denies any pain. His heart rate is 143 and he is on his 3rd liter of normal saline. I am starting him on antibiotics. The patient verbally expressed understanding and agreement of the treatment plan. The patient will be evaluated for further treatment. 1641: I discussed the patient with Dr. Randle [facility] - he will evaluate the patient for further treatment. 1642: Ordered Flagyl / Nss 500 mg IV, Cipro / D5W 400 mg IV. 1712: The patient's lactic acid is over 5, his troponin is .01. I talked to Dr. Randle and he will talk to the director public service. We will add Vancomycin due to the patient's recent strep infection. 1713: Ordered Vancomycin 1gm/270ml Nss 1 gm IV. 1721: I discussed the patient with Dr. Urbina - [facility] director public service - he recommended Cefepime instead of Vancomycin. The patient's pressure is now 94/48. Medical Decision This is an 30-year-old male who presents with vomiting and diarrhea with lower abdominal pain rating to his back. Differential diagnosis includes gastroenteritis, colitis, diverticulitis, dehydration, electrolyte abnormality. I did perform a limited focused review of portions of the patient's old chart on the electronic medical record. The patient was seen here August 04 and diagnosed with strep pharyngitis. He was discharged with Prednisone and Azithromycin. Blood Pressure Screening: Patient was found to have normal blood pressure on screening and does not require follow-up. Medication Reconciliation: I attest that I have personally reviewed the patient' s current medication list. I did evaluate the patient as noted above. The patient presents with multiple episodes of vomiting and diarrhea. He also complains of lower abdominal pain rating to his back. He does have diffuse lower abdominal tenderness with some mild right upper quadrant tenderness as well. He is tachycardic. IV access was established. The patient was placed on a continuous manager cardiac. He was given normal saline IV. He had persistent tachycardia and was given another liter normal saline IV. He was also given morphine and Zofran IV for pain. I did order and personally review the patient's urinalysis as described above. I did order and review the patient's blood work as noted in the electronic medical record. His white blood cell count is not elevated. He does have hypokalemia likely secondary to the vomiting and diarrhea. He was given IV KCl. His creatinine is elevated likely secondary to dehydration. I did order a CT of the abdomen and pelvis. I did review the images myself as well as the radiology report as described above. There is no evidence of acute colitis or appendicitis. He does have symptoms consistent with a diarrheal illness with fluid in his colon. He has stranding around his kidneys with some fluid. He denies any urinary symptoms. I did reassess the patient. He continues to have tachycardia. He denies any pain at this time. I did obtain a 12-lead EKG as described above. I do not believe there is a STEMI here. He does not have chest pain per his report to me. I did obtain a POC troponin which was negative. I did give him an additional liter of normal saline and his blood pressure did improve. I did obtain a lactic acid which was elevated. I did treat him empirically with IV antibiotics. I did discuss the case with the hospitalist and we agreed on Cipro and Flagyl. The hospitalist did speak to the director public service about the patient who recommended not giving vancomycin and giving cefepime instead. The patient was admitted to the ICU. Consults Time Called: 1638 Consulting Physician: Dr. Razia Powell hospitalist Returned Call: 1641 I discussed the patient with Dr. Razia Powell hospitalist - he will evaluate the patient for further treatment. Additional Consults: Time Called: 1710 Consulted Physician: Dr. Carlitos REESE director public service Returned Call: 1721 Additional Comments: I discussed the patient with Dr. Carlitos REESE director public service - he recommended Cefepime instead of Vancomycin. The patient's pressure is now 94/48. Impression Primary Impression: Severe dehydration Additional Impressions: Vomiting and diarrhea Hypokalemia Serum creatinine raised Hypotension Scribe Attestation The scribe's documentation has been prepared under my direct and personally reviewed by me in its entirety. I confirm that the note above accurately reflects all work, treatment, procedures, and medical decision making performed by me. Departure Information Dispostion Being Evaluated By Hospitalist Referrals No Doctor, Assigned (PCP) Patient Instructions My [facility] Problem Qualifiers Additional Impressions: Hypotension Hypotension type: unspecified hypotension type Qualified Codes: I95.9 - Hypotension, unspecified
--- NOTE | 2016-08-10 19:21 | Critical Care Consultation ---
Critical Care Consultation Date of Consultation: Aug 10, 2016. Attending Physician: Elian New MD Reason for Consultation: Concern for severe sepsis status of urinary versus GI source History of Present Illness Patient is a 30-year-old male without significant past medical history who presents with fevers chills nausea vomiting and inability to keep fluids down. He was given 3 L in the emergency room had his blood pressure improved from 70 systolic into the 90s, however his heart rate remained extremely tachycardic greater than 130s. Patient was recently treated for strep throat with azithromycin via his primary care provider. In the emergency department he was given 400 mg Cipro IV 500 mg Flagyl. He obtained a CT scan which showed fluid in the bowel consistent with an enteritis, there was also nonspecific stranding around the kidneys left greater than right. Currently I have expanded his coverage to include cefepime and vancomycin. Patient is being a poor historian reporting that he does not want to speak, has a sore throat, and wants to rest. There is no past medical history of urinary tract infections, urinary malformations, denies IVDA, or ureteral sounding. Past Medical/Surgical History As noted above Family History Hypertension Social History Smoking Status: Former Smoker Alcohol Use: socially Drug Use: none Marital Status: Housing Status: lives with family Occupation Status: employed Allergies Coded Allergies: Amoxicillin (Verified Allergy, Unknown, hives, 12/28/15) Home Medications Scheduled Fluticasone Prop/Salmeterol (Advair Diskus 500/50 60 Dose), 1 PUFF INH BID Scheduled PRN Albuterol Sulfate (Proair Respiclick), 2 PUFFS INH UD PRN for SOB/Wheezing Current Inpatient Medications Current Inpatient Medications Medications (Trade) Dose Ordered Sig/Lanie Route Start Time Stop Time Status Last Admin Dose Admin Ioversol (Optiray 320) 100 ml UD PRN IV 08/10/16 14:15 08/14/16 14:14 Heparin Sodium (Porcine) (Heparin Sq 5000 Unit/0.5ml) 5,000 unit Q8H SQ 08/10/16 17:45 09/09/16 17:44 UNV Potassium Chloride/Sodium Chloride 1,000 ml @ 125 mls/hr Q8H IV 08/10/16 17:31 09/09/16 17:30 UNV Acetaminophen (Tylenol Tab) 650 mg Q4H PRN PO 08/10/16 17:45 09/09/16 17:44 Levalbuterol (Xopenex 1.25MG/ 3ML Neb) 1.25 mg Q6H PRN INH 08/10/16 17:45 09/09/16 17:44 Ondansetron HCl (Zofran Inj) 4 mg Q6H PRN IV 08/10/16 17:45 09/09/16 17:44 Cefepime HCl 2000 mg/Dextrose 112.5 ml @ 200 mls/hr BID IV 08/10/16 21:00 08/15/16 20:59 UNV Famotidine (Pepcid Tab) 20 mg BID PO 08/10/16 21:00 09/09/16 20:59 UNV Salmeterol Xinafoate/ Fluticasone (Advair Diskus 500/50 Inh) 1 puff BID INH 08/10/16 21:00 09/09/16 20:59 UNV Vancomycin HCl 1600 mg/Sodium Chloride 282 ml @ 125 mls/hr NOW STAT IV 08/10/16 17:59 08/10/16 20:14 UNV Review of Systems See above for pertinent positives & negatives. A total of 10 systems reviewed and were otherwise negative. Constitutional: + fever, + chills, + sweats Eyes: + redness ENT: + sore throat Respiratory: No cough, No sputum, No wheezing, No shortness of breath Cardiovascular: No chest pain, No orthopnea Abdomen: + pain, + nausea, + vomiting, + diarrhea, No constipation, No GI bleeding, No problem reported Musculoskeletal: No muscle pain Genitourinary - Male: + urinary frequency, No hematuria, No dysuria Neurologic: No memory loss, No weakness Hematologic / Lymphatic: No abnormal bleeding/bruising Physical Exam Date Time Temp Pulse Resp B/P (MAP) Pulse Ox O2 Delivery O2 Flow Rate FiO2 08/10/16 18:30 39.6 127 24 93/39 (57) 88 Room Air 08/10/16 18:03 93/49 08/10/16 18:01 88/47 08/10/16 18:00 137 24 08/10/16 17:45 128 28 08/10/16 17:30 128 28 08/10/16 17:15 133 27 08/10/16 17:00 136 21 08/10/16 16:59 140 94/48 08/10/16 16:28 140 20 78/44 96 Room Air 08/10/16 14:37 137 08/10/16 14:23 150 22 128/59 97 08/10/16 12:26 36.8 135 20 107/49 97 Room Air General Appearance: mild distress Head: normocephalic, atraumatic Eyes: sclerae injected ENT: normal mouth exam, normal throat exam (mucous membranes moist), normal dental exam Neck: normal range of motion, no tenderness, trachea midline, no stridor, supple, no meningismus, no nuchal rigidity Respiratory: breath sounds normal, clear to auscultation Cardiovasular: no M/G/R, irregular rate (tachycardia) Abdomen: no masses, epigastric TTP, RUQ TTP, LUQ TTP, RLQ TTP, LLQ TTP, hyperactive bowel sounds Back: normal inspection, no midline tenderness Neuro: alert (not wanting to engage in clinical exam due to illness, with persistence patient answers all questions appropriately and maintains appropriate level of consciousness), oriented x 3 Laboratory Results Last 24 Hours Test 08/10/16 12:50 08/10/16 15:10 08/10/16 16:57 08/10/16 16:58 White Blood Count 8.57 K/uL Red Blood Count 5.61 M/uL Hemoglobin 16.5 g/dL Hematocrit 47.7 % Mean Corpuscular Volume 85.0 fL Mean Corpuscular Hemoglobin 29.4 pg Mean Corpuscular Hemoglobin Concent 34.6 g/dl Platelet Count 196 K/uL Mean Platelet Volume 9.4 fL RDW Standard Deviation 37.9 fL RDW Coefficient of Variation 12.3 % Neutrophils % (Manual) 75.2 % Lymphocytes % (Manual) 18.6 % Monocytes % (Manual) 0.9 % Metamyelocytes % 3.5 % Myelocytes % 1.8 % Neutrophils # (Manual) 6.44 K/uL Total Absolute Neutrophils 6.44 K/uL Lymphocytes # (Manual) 1.59 K/uL Total Absolute Lymphocytes 1.59 K/uL Monocytes # (Manual) 0.08 K/uL Metamyelocytes # 0.30 K/uL Myelocytes # 0.15 K/uL Toxic Vacuolation 2+ Prothrombin Time 11.0 SECONDS Prothromb Time International Ratio 1.0 Sodium Level 140 mmol/L Potassium Level 3.1 mmol/L Chloride Level 104 mmol/L Carbon Dioxide Level 25 mmol/L Anion Gap 11.0 mmol/L Blood Urea Nitrogen 23 mg/dl Creatinine 1.70 mg/dl Est Creatinine Clear Calc Drug Dose 64.4 ml/min Estimated GFR () 61.4 Estimated GFR (Non- 52.9 BUN/Creatinine Ratio 13.4 Random Glucose 108 mg/dl Calcium Level 9.5 mg/dl Total Bilirubin 0.9 mg/dl Aspartate Amino Transf (AST/SGOT) 16 U/L Alanine Aminotransferase (ALT/SGPT) 27 U/L Alkaline Phosphatase 110 U/L Total Protein 7.2 gm/dl Albumin 4.0 gm/dl Globulin 3.2 gm/dl Albumin/Globulin Ratio 1.3 Lipase 140 U/L Random Cortisol 26.64 mcg/dl Anti-Streptolysin O Antibody Screen NEG IU/ml Urine Color YELLOW Urine Appearance CLEAR Urine pH 5.0 Urine Specific [place] 1.015 Urine Protein 1+ Urine Glucose (UA) NEG Urine Ketones TRACE Urine Occult Blood 2+ Urine Nitrite NEG Urine Bilirubin NEG Urine Urobilinogen NEG Urine Leukocyte Esterase NEG Urine WBC (Auto) 1-5 /hpf Urine RBC (Auto) 5-10 /hpf Urine Hyaline Casts (Auto) 1-5 /lpf Urine Epithelial Cells (Auto) >30 /lpf Urine Bacteria (Auto) NEG Urine Renal Epithelial Cells /lpf Urine Opiates Screen NEG Urine Methadone, Qualitative NEG Urine Barbiturates NEG Urine Phencyclidine (PCP) Level NEG Ur Amphetamine/Methamphetamine NEG MDMA (Ecstasy) Screen NEG Urine Benzodiazepines Screen NEG Urine Cocaine Metabolite NEG Urine Marijuana (THC) NEG Bedside Troponin I < 0.030 ng/ml Bedside Lactic Acid Venous 5.02 mmol/L Diagnostic Results I have reviewed the chest x-ray and CT scan of the abdomen and pelvis as well as reviewed the radiology report for the CT abdomen and pelvis. Assessment & Plan Reason Critically Ill: Sepsis with significant tachycardia, relative hypotension necessitating phenylephrine infusion and acute kidney injury PLAN: Neuro: Fever * IV Tylenol 1 g every 8 hours when necessary Resp: Supplemental oxygen when necessary CV: Sinus tachycardia * Phenylephrine infusion should have reflex bradycardia and provide additional afterload Fluids/Renal: Acute kidney injury * Normosol at 125 ML's per hour ID: Sepsis: Source possible urinary/pyelonephritis versus gastrointestinal: Enteritis, gastroenteritis * Cefepime 2 g every 12 hours provide anaerobic and gram-negative coverage * Vancomycin for possible MRSA, no significant risk factors GI/Nutrition: Nothing by mouth Heme: Heparin 5000 units every 8 hours DVT prophylaxis Endocrine: Accu-Cheks, glucose within acceptable limits at this time I have personally spent 50 minutes of critical care time in the direct management of this patient. This is a life/limb threatening event. This includes time spent evaluating patient, direct bedside care, chart review, placing orders, interpretation of diagnostic studies, discussion with consultants, patient, and family members, as well as other required patient management activities. This time is exclusive of all separately billable procedures, and teaching time and separate from and in addition to any other critical care service time.
[2016-08-10] MEDS: NORMOSOL R 1,000 ML IV SCH (19:31)
[2016-08-10] MEDS: PHENYLEPHRINE HCL INJ 20 MG in DEXTROSE 5% 500ML 500 ML IV PRN ×2 (19:31→22:11)
[2016-08-10] MEDS: CEFEPIME IV 2,000 MG in DEXTROSE 5% 100ML 100 ML IV SCH (19:31)
[2016-08-10] MEDS: FLUTICASONE/SALMETEROL (ADVAIR) 500/50 INH 14 PUFF INH SCH (20:13)
[2016-08-10] MEDS: HEPARIN SOD 5000 UNIT/0.5 ML CARP SQ SCH (20:14)
[2016-08-10] MEDS: ACETAMINOPHEN 325 MG TAB PO PRN (20:17)
--- NOTE | 2016-08-10 20:34 | Pharmacy Progress Note ---
Pharmacy Abx Initial Consult Date of Service Aug 10, 2016. Pharmacy Dosing Scope Date of Consult: 08/10/16 Consultation requested by: Dr. Urbina Pharmacy is consulted to initiate Vanco IV dosing therapy, order appropriate labs and adjust drug dose/frequency. Subjective The patient is a 30 year old male admitted on Aug 10, 2016 at 17:42. Objective Height (Feet): 5 Height (Inches): 7.00 Weight (Kilograms): 85.000 Vital Signs (Past 12Hrs) Vital Signs Past 12 Hours Date Time Temp Pulse Resp B/P (MAP) Pulse Ox O2 Delivery O2 Flow Rate FiO2 08/10/16 19:16 39.6 128 18 85/48 96 Nasal Cannula 4.0 08/10/16 18:30 39.6 127 24 93/39 (57) 88 Room Air 08/10/16 18:03 93/49 08/10/16 18:01 88/47 08/10/16 18:00 137 24 08/10/16 17:45 128 28 08/10/16 17:30 128 28 08/10/16 17:15 133 27 08/10/16 17:00 136 21 08/10/16 16:59 140 94/48 08/10/16 16:28 140 20 78/44 96 Room Air 08/10/16 14:37 137 08/10/16 14:23 150 22 128/59 97 08/10/16 12:26 36.8 135 20 107/49 97 Room Air Lab Results (24Hrs) Laboratory Tests (24 Hours) Test 08/10/16 12:50 White Blood Count 8.57 K/uL (4.8-10.8) Red Blood Count 5.61 M/uL (4.7-6.1) Hemoglobin 16.5 g/dL (14.0-18.0) Hematocrit 47.7 % (42-52) Mean Corpuscular Volume 85.0 fL (80-100) Mean Corpuscular Hemoglobin 29.4 pg (25-34) Mean Corpuscular Hemoglobin Concent 34.6 g/dl (32-36) Platelet Count 196 K/uL (130-400) Mean Platelet Volume 9.4 fL (7.4-10.4) Micro Results Date/Time Source Procedure Growth Status 08/10/16 17:22 Blood Blood Culture Pending Received 08/10/16 17:15 Blood Blood Culture Pending Received 08/10/16 15:10 Stool Shiga Toxin Test Pending Received 08/10/16 15:10 Stool Stool Culture Pending Received 08/10/16 15:10 Stool C.difficile Toxin B Gene (PCR) - Final No C. difficile toxin B gene detected Complete 08/10/16 15:10 Urine , Clean Catch Urine Culture Pending Received Risk Factors for Resistance * Antimicrobial use within the last 90 days: Azithromycin for Strep throat (?? allergy to Amoxicillin) Assessment & Plan Pt is a 30yo M with little significant PMH. P/w fever, DA, N/V, and abdominal pxn. He recently completed a course of Azithromycin for strep throat (?due to amoxicillin allergy). He is currently tachypneic, tachycardiac, and febrile. He is receiving pressor support for HypoTN. WBC currently WNL. His renal fxn looks to be elevated from his baseline: current pt population p'kinetics: t1/2=12hrs, ke=0.0575, Vd=0.7. Spoke with Dr. Urbina: currently r/o urosepsis vs GI infxn , anaerobic coverage deferred for now per patient account analyst. Pt doesnt appear to have a h/o MDRO. Received Cipro + Flagyl in the ED x1, respectively. BC and UC both pending. Vanco: * Vanco 2000mg (25mg/kg) @1900 to quickly achieve a peak of ~35mcg/mL * Then Vanco 1200mg (~15mg/kg) q14 hrs set to start @0200 on 08/11/16. May consider increasing dose or freq if renal fxn improves. * Goal trough: 15-20mcg/mL * Trough ordered for: 08/12/16 @ 0530 prior to the third MD to ensure we are achieving therapeutic throughs Cefepime: Not consulted but appropriately dosed for eCrCl>60cc/min Pharmacy will continue to follow and will adjust dose/frequency as necessary. Thank you.
[2016-08-10] MEDS ORDERED: FAMOTIDINE 20 MG TAB PO SCH (21:00)
[2016-08-10] MEDS: ONDANSETRON INJ 2 MG/ML 2 ML VIAL IV PRN (22:30)
[2016-08-11] VITALS (39 sets, daily range): BP systolic 46–142; BP diastolic 30–76; PULSE 91–124; TEMP 37–38.8; O2SAT 95–100
[2016-08-11] MEDS: PHENYLEPHRINE HCL INJ 80 MG in DEXTROSE 5% 500ML 500 ML IV PRN ×4 (00:05→20:52)
--- NOTE | 2016-08-11 00:14 | Procedure Note ---
Procedure Note Date of Service Aug 11, 2016. Procedure Note Critical Care Medicine Point of Care Bedside Ultrasound Procedure: Limited Transthoracic Echocardiogram Indication: Hypotension Date: August 10, 2016 Attending: Ulises Urbina DO Fellow/Resident/Physician Functional Architect: Dimitri Arnold Organs Examined: Heart Pericardial fluid: absent Right ventricle size: NORMAL LV Contractility: HYPERDYNAMIC: possible inferior septal hypokinesis RV Contractility: TAPSE >1.5 Mechanically ventilated breaths: No Hemodynamic Status: 80/40 HR 120 vasopressin 2 mcg/kg/min IVC respiratory variation % Spontaneous breaths: Y Impression: hyperdynamic LV Plan: Follow-up formal ECHO in am, r/o cardiomyopathy Images obtained are saved for permanent record
--- NOTE | 2016-08-11 00:18 | Procedure Note ---
Procedure Note Procedure Date Aug 11, 2016. Central Line Procedure time out: side/site verified, patient ID confirmed, sterile procedure used Consent obtained: written Time of procedure: 23:30 Performed by: physician buildings and grounds director Indications: central drug admin. Prep: chlorhexadine prep, sterile drape, sterile procedures used Anesthesia: lidocaine 1% without epi Volume anesthetic (ml's): 3 Central line lumen: triple Central line location: internal jugular (R) Additional details: percutaneous placement, ultrasound guidance, Selinger technique used, line sutured, good blood return CXR: other (pending) Complications: none Patient tolerated procedure: well Post-procedure vital signs: reviewed and stable Comments: Critical Care Medicine Point of Care Bedside Ultrasound Procedure: Procedural Ultrasound Procedure Date: August 10, 2016 Indication: Central venous access Attending: Ulises Urbina DO Resident/Physician Control Valve Mechanic: Dimitri Arnold If for central venous access Artery AND Vein visualized: Y Compressible Vein: Y Guidewire or Short Catheter seen in vein prior to dilation: Y Line confirmed in Vein with ultrasound: Y Lung Sliding on side of attempt (if applicable): NA If no lung sliding or not obtained has CXR been ordered: Y Impression: successful R IJ CVL Plan: Follow-up CXR Images obtained are saved for permanent record
[2016-08-11] MEDS: NORMOSOL R 1,000 ML IV SCH ×4 (00:59→20:49)
[2016-08-11] MEDS: ALBUMIN HUMAN 5% 12.5 GM/250 ML VIAL IV SCH ×2 (01:01→01:19)
[2016-08-11 01:15] LABS: THYROID STIMULATING HORMONE 0.463 uIu/ml (0.300-4.500)
[2016-08-11 01:15] LABS: INFLUENZA A PCR Neg for Influ A (NEG); INFLUENZA B PCR Neg for Influ B (NEG)
[2016-08-11] MEDS ORDERED: VANCOMYCIN INJ 1,200 MG in SODIUM CHLORIDE 0.9% 250ML 250 ML IV SCH (02:00)
--- NOTE | 2016-08-11 02:48 | Procedure Note ---
Procedure Note Procedure Date Aug 11, 2016. (Corrie Arnold PA-C) I was present and assisted during the entire procedure. (Francis Urbina, D.O.) Procedure Description Procedure Name: Right Radial Arterial Line Procedure time out: side/site verified, patient ID confirmed, correct procedure Consent obtained: written Time of procedure: 23:00 Performed by: physician woodworker helper (Corrie Arnold; ROS) Indications: diagnostic Contraindications: none Description: Using sterile technique; the left radial artery was cleaned with a chloro- hexadine scrub after adequate palpation and visualization with the ultrasound, a finder needle with overlaying catheter was then used with approach at a 45* angle until a flash was obtained with direct visualization on ultrasound. Using Seldinger technique, there was initially no difficulty passing the guide wire, on the first attempt the guide wire was then passed successfully into the artery and the catheter was threaded over the guide wire; which was then removed. Arterial blood was seen pulsating from catheter tip and a luer lock valve was attached to the catheter. The A-line catheter was then secured and covered with a stat lock with a sterile surgical dressing. Pt was reassessed and no evidence of hematoma was appreciated. The tubing was placed between the first and second fingers and taped to the forearm, before a wrist support was placed. Pt tolerated the procedure well with no complications. Consent was obtained by Dr. Francis Urbina (Corrie Arnold PA-C)
[2016-08-11] MEDS: ACETAMINOPHEN 325 MG TAB PO PRN (03:20)
[2016-08-11] MEDS: ONDANSETRON INJ 2 MG/ML 2 ML VIAL IV PRN ×2 (03:20→10:04)
[2016-08-11 04:42] LABS: COMPLETE YES; ECHINOCYTES 1+; HEMATOCRIT 39.6 % (42-52); LYMPH ABS # 1.22 K/uL (1.2-3.4); LYMPHOCYTE % 2.5 %; MEAN CELL VOLUME 84.3 fL (80-100); MEAN CORPUSCULAR HEMOGLOBIN 30.6 pg (25-34); MEAN CORPUSCULAR HGB CONC 36.4 g/dl (32-36); MEAN PLATELET VOLUME 9.6 fL (7.4-10.4); META ABS # 6.03 K/uL (0-0); METAMYELOCYTE % 12.4 %; NEUTROPHILS % 85.1 %; PLATELET COUNT 198 K/uL (130-400); PLT ESTIMATE NORMAL; POLYCHROMASIA 1+; WHITE BLOOD COUNT 48.65 K/uL (4.8-10.8)
[2016-08-11 04:45] LABS: BLOOD UREA NITROGEN 26 mg/dl (7-18); BUN/CREATININE RATIO 11.9 (10-20); CALCIUM 7.2 mg/dl (8.5-10.1); CARBON DIOXIDE 20 mmol/L (21-32); CHLORIDE 110 mmol/L (98-107); GLUCOSE 115 mg/dl (70-99); MAGNESIUM 1.1 mg/dl (1.8-2.4); PHOSPHORUS 2.1 mg/dl (2.5-4.9); POTASSIUM 3.8 mmol/L (3.5-5.1); SODIUM 140 mmol/L (136-145)
[2016-08-11] MEDS ORDERED: SODIUM PHOSPHATE 3 MMOL/1 ML INFUSION IV STA (05:32)
[2016-08-11] MEDS: HEPARIN SOD 5000 UNIT/0.5 ML CARP SQ SCH ×3 (05:34→21:37)
[2016-08-11 05:56] LABS: HEMATOCRIT 41.7 % (42-52); MEAN CELL VOLUME 84.2 fL (80-100); MEAN CORPUSCULAR HEMOGLOBIN 29.9 pg (25-34); MEAN CORPUSCULAR HGB CONC 35.5 g/dl (32-36); RED BLOOD COUNT 4.95 M/uL (4.7-6.1); WHITE BLOOD COUNT 51.54 K/uL (4.8-10.8)
[2016-08-11 06:05] LABS: ALB/GLOB RATIO 1.2 (0.9-2); BUN/CREATININE RATIO 12.1 (10-20); CALCIUM 7.2 mg/dl (8.5-10.1); CREATININE 2.1 mg/dl (0.60-1.40); MAGNESIUM 1.1 mg/dl (1.8-2.4); PHOSPHORUS 2.3 mg/dl (2.5-4.9); POTASSIUM 3.9 mmol/L (3.5-5.1)
[2016-08-11 06:10] LABS: MEAN PLATELET VOLUME 9.6 fL (7.4-10.4); PLATELET COUNT 190 K/uL (130-400)
[2016-08-11 06:13] LABS: BASO % 0.1 %; BASO ABS # 0.04 K/uL (0-0.2); COMPLETE YES; IG% 8.8 %; LYMPH % 0.7 %; LYMPH ABS # 0.36 K/uL (1.2-3.4); MONO % 0.4 %; PLT ESTIMATE NORMAL
[2016-08-11] MEDS ORDERED: SODIUM PHOSPHATE INJ 15 MMOL in SODIUM CHLORIDE 0.9% 250ML 250 ML IV SCH (06:15)
[2016-08-11] MEDS ORDERED: POTASSIUM CHLR 20 MEQ / WTR 20 MEQ in PREMIXED WATER 100 ML IV SCH (06:15)
[2016-08-11] MEDS: CEFEPIME IV 2,000 MG in DEXTROSE 5% 100ML 100 ML IV SCH ×2 (06:18→20:17)
[2016-08-11] MEDS ORDERED: METRONIDAZOLE / NSS 500 MG in PREMIXED NSS 100 ML IV SCH (06:30)
[2016-08-11] MEDS: MAGNESIUM SULFATE 1GM / D5W 1 GM in PREMIXED IN D5W 100 ML IV SCH ×3 (06:36→09:21)
--- NOTE | 2016-08-11 07:11 | DIAGNOSTIC IMAGING REPORT ---
CHEST ONE VIEW PORTABLE CLINICAL HISTORY: 30 year-old Male presenting with central venous line placement. TECHNIQUE: Portable AP upright view of the chest was obtained. COMPARISON: 08/10/2016 at 6:36 PM. FINDINGS: Interval placement of a right internal jugular central venous catheter, which terminates in the superior portion of the superior vena cava. Cardiomediastinal silhouette normal. Persistent prominence of pulmonary vasculature. Mildly asymmetric lung density, right greater than left, which could be positional or due to portable technique. No dedrick evidence of focal infiltrate or pulmonary edema. No large effusion or pneumothorax. Trace pleural effusions may be present. Osseous structures and upper abdomen normal. IMPRESSION: 1. Interval placement of a right internal jugular central venous catheter, which terminates in the superior portion of the superior vena cava. 2. Apparent pulmonary vascular congestion without evidence of pulmonary edema or focal infiltrate. Electronically signed by: Juan Pablo Massey 08/11/2016 7:09 AM Dictated Date/Time: 08/11/2016 7:05 AM
--- NOTE | 2016-08-11 07:17 | DIAGNOSTIC IMAGING REPORT ---
RENAL ULTRASOUND HISTORY: Pain B/L Flank tenderness COMPARISON: None. FINDINGS: Right kidney: Maximum dimension 9.9 cm. Trace perinephric fluid. Increased cortical echogenicity. Left kidney: 10.4 cm maximum dimension. No evidence for hydronephrosis. Trace perinephric fluid. Increased cortical echogenicity consistent with nonobstructive renal insufficiency. Bladder: No bladder wall thickening. The bilateral ureteral jets were identified. Trace abdominal and pelvic ascites. IMPRESSION: 1. Findings consistent with nonobstructive renal insufficiency. 2. Trace perinephric fluid bilaterally. 3. Trace abdominal and pelvic ascites. Electronically signed by: Peter Cruz M.D. 08/11/2016 7:16 AM Dictated Date/Time: 08/11/2016 7:13 AM
[2016-08-11] MEDS: FLUTICASONE/SALMETEROL (ADVAIR) 500/50 INH 14 PUFF INH SCH ×2 (09:21→20:18)
[2016-08-11] MEDS ORDERED: DOXYCYCLINE IV 100 MG in DEXTROSE 5% 100ML 100 ML IV SCH (10:00)
[2016-08-11] MEDS: FAMOTIDINE IV INJ 20 MG in DEXTROSE 5% 100ML 100 ML IV SCH ×2 (10:02→20:49)
[2016-08-11] MEDS: ACETAMINOPHEN IV 100 ML IV PRN ×2 (10:04→19:54)
[2016-08-11] MEDS: ASCORBIC ACID INJ 1,500 MG in NSS 100 ML IV SCH ×3 (10:41→21:10)
[2016-08-11] MEDS ORDERED: CEFEPIME CONSULT ACTIVE PRN ×2 (10:45)
--- NOTE | 2016-08-11 11:01 | Critical Care Progress Note ---
Critical Care Progress Note Date of Service Aug 11, 2016. ICU Day ICU Day Number: [address] Urbina Subjective Complaints of stomach pain, generalized fatigue Objective General Appearance: Uncomfortable Head: normocephalic, atraumatic Eyes: sclerae injected Respiratory: Scattered rhonchi Cardiovasular: no M/G/R, irregular rate (tachycardia) Abdomen: no masses, epigastric TTP, RUQ TTP, LUQ TTP, RLQ TTP, LLQ TTP, hyperactive bowel sounds Back: normal inspection, no midline tenderness Neuro: alert, oriented x 3 Current SOFA Score SOFA Score Response (Comments) Value Platelets (x10) > 150 0 Bilirubin (mg/dL) 1.2 - 1.9 1 [place] Coma Score 15 0 Level of Hypotension Dopamine > 5 mcq or Epi < 0.1 mcq 3 Creatinine (mg/dL) 2.0 - 3.4 2 Total 6 Previous SOFA Scores 4 08/10/2016 Assessment & Plan Neuro: Fever * IV Tylenol 1 g every 8 hours when necessary Resp: Supplemental oxygen when necessary CV: Sinus tachycardia, hypotension * Phenylephrine infusion, improved heart rate * Echocardiogram completed, report pending * Continue to trend troponins * EKG improved compared to yesterday * Suspect troponin elevation secondary to tachycardia * Consider myocarditis: Viral versus bacterial viral being more likely Fluids/Renal: Acute kidney injury * Normosol at 150 ML's per hour * Continues to have greater than 100 mL urine output, refusing [place] * Renal ultrasound reviewed * Check urine eosinophils May have sips and ice chips ID: Sepsis: Source possible urinary/pyelonephritis versus gastrointestinal: Enteritis, gastroenteritis * Cefepime 2 g every 12 hours gram-negative coverage * Vancomycin for possible MRSA, no significant risk factors * 1 blood culture positive for gram-positive cocci * Re-send blood cultures today * Added Flagyl for anaerobic coverage * Doxycycline for any tickborne disease and Listeria * Awaiting stool cultures, C. difficile negative * Sent fungal blood culture * Viral considerations include dengue, however no travel history, hepatitis HIV * Checking Lyme titers GI/Nutrition: Transaminitis * Likely secondary to shock liver * GI consultation for further evaluation and possible GI sources of infection * Acute hepatitis panel, HIV Maintain nothing by mouth status given active vasopressors Heme: Heparin 5000 units every 8 hours DVT prophylaxis Endocrine: Accu-Cheks, glucose within acceptable limits at this time * Cortisol: 26 unlikely to be adrenal insufficiency * Thyroid studies within normal limits, excludes thyroid storm Vascular access: Right internal jugular triple-lumen placed 08/10/2016 Right radial arterial line placed 08/10/2016 I have personally spent 40 minutes of critical care time in the direct management of this patient. This is a life/limb threatening event. This includes time spent evaluating patient, direct bedside care, chart review, placing orders, interpretation of diagnostic studies, discussion with consultants, patient, and family members, as well as other required patient management activities. This time is exclusive of all separately billable procedures, and teaching time and separate from and in addition to any other critical care service time. Consults & Procedures Consultants: Gastroenterology Procedures: Right internal jugular triple lumen central venous catheter: 08/10/2016 Right radial arterial line 08/10/2016 Limited bedside echo cardiogram 08/10/2016 Data Medications: Current Inpatient Medications Medications (Trade) Dose Ordered Sig/Lanie Route Start Time Stop Time Status Last Admin Dose Admin Ioversol (Optiray 320) 100 ml UD PRN IV 08/10/16 14:15 08/14/16 14:14 Heparin Sodium (Porcine) (Heparin Sq 5000 Unit/0.5ml) 5,000 unit Q8 SQ 08/10/16 22:00 09/09/16 21:59 08/11/16 05:34 5,000 UNIT Acetaminophen (Tylenol Tab) 650 mg Q4H PRN PO 08/10/16 17:45 09/09/16 17:44 08/11/16 03:20 650 MG Levalbuterol (Xopenex 1.25MG/ 3ML Neb) 1.25 mg Q6H PRN INH 08/10/16 17:45 09/09/16 17:44 Ondansetron HCl (Zofran Inj) 4 mg Q6H PRN IV 08/10/16 17:45 09/09/16 17:44 08/11/16 10:04 4 MG Cefepime HCl 2000 mg/Dextrose 112.5 ml @ 200 mls/hr Q12H IV 08/10/16 19:00 08/20/16 18:59 08/11/16 06:18 200 MLS/HR Salmeterol Xinafoate/ Fluticasone (Advair Diskus 500/50 Inh) 1 puff BID INH 08/10/16 21:00 09/09/16 20:59 08/11/16 09:21 1 PUFF Acetaminophen 100 ml @ 400 mls/hr Q8H PRN IV 08/10/16 19:00 09/09/16 18:59 08/11/16 10:04 400 MLS/HR Vancomycin HCl 1200 mg/Sodium Chloride 274 ml @ 125 mls/hr Q14H IV 08/11/16 02:00 08/21/16 01:59 Future Hold 08/11/16 00:59 125 MLS/HR Vancomycin HCl (Consult) 1 ea UD PRN N/A 08/10/16 19:00 09/09/16 18:59 Parenteral Electrolyte Solution 1,000 ml @ 150 mls/hr Q6H40M IV 08/10/16 19:30 09/09/16 19:29 08/11/16 07:51 150 MLS/HR Phenylephrine HCl 80 mg/Dextrose 508 ml @ 0 mls/hr Q0M PRN IV 08/10/16 23:45 09/09/16 23:44 08/11/16 06:00 120 MLS/HR Metronidazole 500 mg/Prmx 100 ml @ 100 mls/hr Q8 IV 08/11/16 06:30 08/25/16 06:29 08/11/16 07:52 100 MLS/HR Doxycycline Hyclate 100 mg/ Dextrose 110 ml @ 50 mls/hr Q12H IV 08/11/16 10:00 08/21/16 09:59 08/11/16 10:02 50 MLS/HR Famotidine 20 mg/ Dextrose 102 ml @ 204 mls/hr Q12H IV 08/11/16 09:30 09/10/16 09:29 08/11/16 10:02 204 MLS/HR Ascorbic Acid 1500 mg/Sodium Chloride 103 ml @ 206 mls/hr Q6H IV 08/11/16 10:00 08/15/16 04:29 08/11/16 10:41 206 MLS/HR Thiamine HCl 200 mg/Sodium Chloride 52 ml @ 210 mls/hr Q12H IV 08/11/16 10:30 09/10/16 10:29 Cefepime HCl (Consult) 1 ea UD PRN N/A 08/11/16 10:45 09/10/16 10:44 Vital Signs: Date Time Temp Pulse Resp B/P (MAP) Pulse Ox O2 Delivery O2 Flow Rate FiO2 08/11/16 06:00 103 27 93/48 100 08/11/16 05:30 96 23 97/52 98 08/11/16 05:01 91 23 104/66 98 108/57 08/11/16 04:30 100 23 100/56 97 08/11/16 04:01 100 26 91/53 100 99/52 08/11/16 04:00 37.2 08/11/16 04:00 98 Nasal Cannula 2.0 08/11/16 03:31 105 25 90/65 98 102/56 08/11/16 03:30 105 25 108/59 98 08/11/16 03:01 94 21 102/49 98 91/53 08/11/16 02:31 99 20 119/57 97 81/52 08/11/16 02:01 98 21 88/38 98 79/42 08/11/16 01:43 37.0 08/11/16 01:31 98 20 91/39 100 83/41 08/11/16 01:01 100 21 82/33 98 81/37 08/11/16 00:45 106 19 83/35 99 08/11/16 00:31 124 22 64/44 100 75/30 08/11/16 00:01 117 36 103/61 98 08/10/16 23:59 100 Nasal Cannula 3.0 08/10/16 23:50 116 31 93/44 97 08/10/16 23:31 119 27 93/44 98 08/10/16 23:00 113 24 86/40 100 08/10/16 22:31 113 21 82/42 100 08/10/16 21:46 111 21 78/36 97 08/10/16 21:31 112 23 82/36 97 08/10/16 21:15 112 22 81/35 96 08/10/16 21:00 106 21 73/33 96 08/10/16 21:00 38.2 08/10/16 20:45 107 23 79/33 95 08/10/16 20:31 115 28 61/36 96 08/10/16 20:15 116 21 78/39 95 08/10/16 20:00 96 Nasal Cannula 3.0 08/10/16 19:58 123 21 80/35 88 08/10/16 19:45 117 20 96 08/10/16 19:30 133 20 93 08/10/16 19:16 39.6 128 18 85/48 96 Nasal Cannula 4.0 08/10/16 19:15 128 26 94 08/10/16 19:00 132 25 99 08/10/16 18:30 39.6 127 24 93/39 (57) 88 Room Air 08/10/16 18:03 93/49 08/10/16 18:01 88/47 08/10/16 18:00 137 24 08/10/16 17:45 128 28 08/10/16 17:30 128 28 08/10/16 17:15 133 27 08/10/16 17:00 136 21 08/10/16 16:59 140 94/48 08/10/16 16:28 140 20 78/44 96 Room Air 08/10/16 14:37 137 08/10/16 14:23 150 22 128/59 97 08/10/16 12:26 36.8 135 20 107/49 97 Room Air Laboratory Results: Last 24 Hours Test 08/10/16 12:50 08/10/16 15:10 08/10/16 16:57 08/10/16 16:58 White Blood Count 8.57 K/uL Red Blood Count 5.61 M/uL Hemoglobin 16.5 g/dL Hematocrit 47.7 % Mean Corpuscular Volume 85.0 fL Mean Corpuscular Hemoglobin 29.4 pg Mean Corpuscular Hemoglobin Concent 34.6 g/dl Platelet Count 196 K/uL Mean Platelet Volume 9.4 fL RDW Standard Deviation 37.9 fL RDW Coefficient of Variation 12.3 % Neutrophils % (Manual) 75.2 % Lymphocytes % (Manual) 18.6 % Monocytes % (Manual) 0.9 % Metamyelocytes % 3.5 % Myelocytes % 1.8 % Neutrophils # (Manual) 6.44 K/uL Total Absolute Neutrophils 6.44 K/uL Lymphocytes # (Manual) 1.59 K/uL Total Absolute Lymphocytes 1.59 K/uL Monocytes # (Manual) 0.08 K/uL Metamyelocytes # 0.30 K/uL Myelocytes # 0.15 K/uL Toxic Vacuolation 2+ Prothrombin Time 11.0 SECONDS Prothromb Time International Ratio 1.0 Sodium Level 140 mmol/L Potassium Level 3.1 mmol/L Chloride Level 104 mmol/L Carbon Dioxide Level 25 mmol/L Anion Gap 11.0 mmol/L Blood Urea Nitrogen 23 mg/dl Creatinine 1.70 mg/dl Est Creatinine Clear Calc Drug Dose 64.4 ml/min Estimated GFR () 61.4 Estimated GFR (Non- 52.9 BUN/Creatinine Ratio 13.4 Random Glucose 108 mg/dl Calcium Level 9.5 mg/dl Total Bilirubin 0.9 mg/dl Aspartate Amino Transf (AST/SGOT) 16 U/L Alanine Aminotransferase (ALT/SGPT) 27 U/L Alkaline Phosphatase 110 U/L Total Protein 7.2 gm/dl Albumin 4.0 gm/dl Globulin 3.2 gm/dl Albumin/Globulin Ratio 1.3 Lipase 140 U/L Random Cortisol 26.64 mcg/dl Anti-Streptolysin O Antibody Screen NEG IU/ml Urine Color YELLOW Urine Appearance CLEAR Urine pH 5.0 Urine Specific [place] 1.015 Urine Protein 1+ Urine Glucose (UA) NEG Urine Ketones TRACE Urine Occult Blood 2+ Urine Nitrite NEG Urine Bilirubin NEG Urine Urobilinogen NEG Urine Leukocyte Esterase NEG Urine WBC (Auto) 1-5 /hpf Urine RBC (Auto) 5-10 /hpf Urine Hyaline Casts (Auto) 1-5 /lpf Urine Epithelial Cells (Auto) >30 /lpf Urine Bacteria (Auto) NEG Urine Renal Epithelial Cells /lpf Urine Opiates Screen NEG Urine Methadone, Qualitative NEG Urine Barbiturates NEG Urine Phencyclidine (PCP) Level NEG Ur Amphetamine/Methamphetamine NEG MDMA (Ecstasy) Screen NEG Urine Benzodiazepines Screen NEG Urine Cocaine Metabolite NEG Urine Marijuana (THC) NEG Bedside Troponin I < 0.030 ng/ml Bedside Lactic Acid Venous 5.02 mmol/L Test 08/10/16 20:00 08/10/16 22:00 08/10/16 22:01 08/10/16 23:20 Lactic Acid Level 4.3 mmol/L Creatine Kinase MB 5.9 ng/ml Creatine Kinase MB Ratio Troponin I 0.083 ng/ml Thyroid Stimulating Hormone (TSH) 0.463 uIu/ml Free Thyroxine 1.25 ng/dl Bedside Glucose 127 mg/dl Influenza Type A (RT-PCR) Neg for Influ A Influenza Type B (RT-PCR) Neg for Influ B Test 08/11/16 03:55 08/11/16 05:22 08/11/16 05:42 08/11/16 06:43 White Blood Count 48.65 K/uL 51.54 K/uL Red Blood Count 4.70 M/uL 4.95 M/uL Hemoglobin 14.4 g/dL 14.8 g/dL Hematocrit 39.6 % 41.7 % Mean Corpuscular Volume 84.3 fL 84.2 fL Mean Corpuscular Hemoglobin 30.6 pg 29.9 pg Mean Corpuscular Hemoglobin Concent 36.4 g/dl 35.5 g/dl Platelet Count 198 K/uL 190 K/uL Mean Platelet Volume 9.6 fL 9.6 fL RDW Standard Deviation 38.7 fL 38.5 fL RDW Coefficient of Variation 12.6 % 12.7 % Nucleated RBC Absolute Count (auto) 0.06 K/uL 0.04 K/uL Neutrophils % (Manual) 85.1 % Lymphocytes % (Manual) 2.5 % Metamyelocytes % 12.4 % Nucleated Red Blood Cells % 0.1 % 0.1 % Neutrophils # (Manual) 41.40 K/uL Total Absolute Neutrophils 41.40 K/uL Lymphocytes # (Manual) 1.22 K/uL Total Absolute Lymphocytes 1.22 K/uL Metamyelocytes # 6.03 K/uL Platelet Estimate NORMAL NORMAL Polychromasia 1+ Echinocytes 1+ Sodium Level 140 mmol/L 141 mmol/L Potassium Level 3.8 mmol/L 3.9 mmol/L Chloride Level 110 mmol/L 111 mmol/L Carbon Dioxide Level 20 mmol/L 20 mmol/L Anion Gap 10.0 mmol/L 10.0 mmol/L Blood Urea Nitrogen 26 mg/dl 25 mg/dl Creatinine 2.20 mg/dl 2.10 mg/dl Est Creatinine Clear Calc Drug Dose 51.2 ml/min 53.6 ml/min Estimated GFR () 44.9 47.5 Estimated GFR (Non- 38.8 41.0 BUN/Creatinine Ratio 11.9 12.1 Random Glucose 115 mg/dl 123 mg/dl Lactic Acid Level 3.3 mmol/L 3.0 mmol/L Calcium Level 7.2 mg/dl 7.2 mg/dl Phosphorus Level 2.1 mg/dl 2.3 mg/dl Magnesium Level 1.1 mg/dl 1.1 mg/dl Creatine Kinase MB 10.5 ng/ml Creatine Kinase MB Ratio Troponin I 0.198 ng/ml Neutrophils (%) (Auto) 90.0 % Lymphocytes (%) (Auto) 0.7 % Monocytes (%) (Auto) 0.4 % Eosinophils (%) (Auto) 0.0 % Basophils (%) (Auto) 0.1 % Neutrophils # (Auto) 46.39 K/uL Lymphocytes # (Auto) 0.36 K/uL Monocytes # (Auto) 0.20 K/uL Eosinophils # (Auto) 0.01 K/uL Basophils # (Auto) 0.04 K/uL Immature Granulocyte % (Auto) 8.8 % Immature Granulocyte # (Auto) 4.54 K/uL Ionized Calcium 1.01 mmol/l Total Bilirubin 1.6 mg/dl Aspartate Amino Transf (AST/SGOT) 66 U/L Alanine Aminotransferase (ALT/SGPT) 63 U/L Alkaline Phosphatase 62 U/L Total Protein 5.0 gm/dl Albumin 2.7 gm/dl Globulin 2.3 gm/dl Albumin/Globulin Ratio 1.2 Lipase 86 U/L Procalcitonin 94.81 ng/ml Bedside Glucose (other) 126 mg/dl Test 08/11/16 09:27 08/11/16 09:43 08/11/16 10:28 Lactic Acid Level 2.7 mmol/L Hepatitis B Surface Antigen NEG
--- NOTE | 2016-08-11 11:02 | Pharmacy Progress Note ---
Pharmacy Abx Dose Progress Nt Date of Service Aug 11, 2016. Pharmacy Dosing Scope The patient is currently receiving the following antimicrobial agents: * vancomycin 1400 mg IV every 14 hours * cefepime 2000 mg IV every 12 hours * metronidazole 500 mg IV every 8 hours * doxycycline 100 mg IV every 12 hours Objective Height (Feet): 5 Height (Inches): 7.00 Weight (Kilograms): 81.400 Vital Signs (Past 12Hrs) Vital Signs Past 12 Hours Date Time Temp Pulse Resp B/P (MAP) Pulse Ox O2 Delivery O2 Flow Rate FiO2 08/11/16 06:00 103 27 93/48 100 08/11/16 05:30 96 23 97/52 98 08/11/16 05:01 91 23 104/66 98 108/57 08/11/16 04:30 100 23 100/56 97 08/11/16 04:01 100 26 91/53 100 99/52 08/11/16 04:00 37.2 08/11/16 04:00 98 Nasal Cannula 2.0 08/11/16 03:31 105 25 90/65 98 102/56 08/11/16 03:30 105 25 108/59 98 08/11/16 03:01 94 21 102/49 98 91/53 08/11/16 02:31 99 20 119/57 97 81/52 08/11/16 02:01 98 21 88/38 98 79/42 08/11/16 01:43 37.0 08/11/16 01:31 98 20 91/39 100 83/41 08/11/16 01:01 100 21 82/33 98 81/37 08/11/16 00:45 106 19 83/35 99 08/11/16 00:31 124 22 64/44 100 75/30 08/11/16 00:01 117 36 103/61 98 08/10/16 23:59 100 Nasal Cannula 3.0 08/10/16 23:50 116 31 93/44 97 08/10/16 23:31 119 27 93/44 98 08/10/16 23:00 113 24 86/40 100 Lab Results (24Hrs) Laboratory Tests (24 Hours) Test 08/11/16 05:22 08/11/16 09:27 08/11/16 09:43 White Blood Count 51.54 K/uL (4.8-10.8) *H Red Blood Count 4.95 M/uL (4.7-6.1) Hemoglobin 14.8 g/dL (14.0-18.0) Hematocrit 41.7 % (42-52) L Mean Corpuscular Volume 84.2 fL (80-100) Mean Corpuscular Hemoglobin 29.9 pg (25-34) Mean Corpuscular Hemoglobin Concent 35.5 g/dl (32-36) Platelet Count 190 K/uL (130-400) Mean Platelet Volume 9.6 fL (7.4-10.4) Neutrophils (%) (Auto) 90.0 % Lymphocytes (%) (Auto) 0.7 % Monocytes (%) (Auto) 0.4 % Eosinophils (%) (Auto) 0.0 % Basophils (%) (Auto) 0.1 % Neutrophils # (Auto) 46.39 K/uL (1.4-6.5) H Lymphocytes # (Auto) 0.36 K/uL (1.2-3.4) L Monocytes # (Auto) 0.20 K/uL (0.11-0.59) Eosinophils # (Auto) 0.01 K/uL (0-0.5) Basophils # (Auto) 0.04 K/uL (0-0.2) Procalcitonin 94.81 ng/ml (0-0.5) H Lactic Acid Level 2.7 mmol/L (0.4-2.0) *H Item Value Date Time Procalcitonin 94.81 ng/ml H 08/11/16521 Creatinine 2.10 mg/dl H 08/11/16521 Est Creatinine Clear Calc Drug Dose 53.6 ml/min 08/11/16 0522 Micro Results Date/Time Source Procedure Growth Status 08/11/16 09:13 Blood Fungal Smear Pending Ordered 08/11/16 09:13 Blood Fungal Culture Pending Ordered 08/10/16 17:22 Blood Blood Culture Pending Received 08/10/16 17:15 Blood Blood Culture - Preliminary Gram Positive Cocci Resulted 08/10/16 20:00 Nasal MRSA DNA Surveillance Screen - Final Specimen Negative for MRSA by DNA Probe Complete 08/10/16 15:10 Stool Shiga Toxin Test Pending Received 08/10/16 15:10 Stool Stool Culture Pending Received 08/10/16 15:10 Stool C.difficile Toxin B Gene (PCR) - Final No C. difficile toxin B gene detected Complete 08/10/16 15:10 Urine , Clean Catch Urine Culture Pending Received Item Value Date Time Hepatitis B Surface Antigen NEG 08/11/16 0927 Anti-Streptolysin O Antibody Screen NEG IU/ml 08/10/16 1250 Influenza Type B (RT-PCR) Neg for Influ B 08/10/16 2320 Influenza Type A (RT-PCR) Neg for Influ A 08/10/16 2320 Risk Factors for Resistance * Antimicrobial use within the last 90 days * azithromycin [employer] for strep throat Assessment & Plan Assessment * 30 year old male receiving broad-spectrum antibiotic therapy for treatment of sepsis shock of an unknown source. * Day # 2 of antimicrobial therapy. * Continues to require IV vasopressors (phenylephrine) * WBC continues to climb, though lactic acid is decreasing * Procalcitonin elevated * Serum creatinine continues to climb, urine output remains adequate * ID and GI have been consulted to assist with patient care Plan * Broad-spectrum ABX for the treatment of septic shock. * broaden to include Lyme's disease and Listeria coverage. Vancomycin IV - gram positive coverage (MRSA and enterococcus) * Loading dose of 2000mg x1 dose followed by 1200mg IV x1 have been administered. * Serum creatinine continues to rise - will hold future scheduled doses until random level assessed * Random level with next lab draw (16:00 today), re-evaluate at this time Cefepime IV - gram negative coverage (including pseudomonas) * Target dose: 2000mg IV every 8-12 hours * Dose adjust for CrCl below 60mL/min - will await decreasing dose until SCr is assessed on 08/12/16 Metronidazole IV - anaerobic and clostridium coverage * Target dose: 500mg IV every 8 hours * no renal dose adjustment required Doxycycline IV - Lyme and Listeria coverage * Target dose: 100mg IV every 12 hours * no renal dose adjustment required Pharmacy will continue to follow and will adjust dose/frequency as necessary. Thank you.
[2016-08-11 11:29] LABS: LYME DISEASE AB IGG NEG (NEG)
[2016-08-11 11:31] LABS: LYME DISEASE AB IGM NEG (NEG)
[2016-08-11] MEDS: THIAMINE HCL INJ 200 MG in NSS 50ML IV SCH ×2 (12:07→21:41)
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
--- NOTE | 2016-08-11 14:01 | ECHOCARDIOGRAM REPORT ---
*NOTICE TO RECEIVING LIBERTARIAN AGENCY This information is strictly Confidential and protected under [place] law. [place] law prohibits you from making any further disclosure of this information unless further disclosure is expressly permitted by the written consent of the person to whom it pertains or is authorized by law. A general authorization for the release of medical or other information is not sufficient for this purpose. Hospital accepts no responsibility if the information is made available to any other person, INCLUDING THE PATIENT. Interpretation Summary * Name: RACHEL ZIMMER Study Date: 08/11/2016 07:31 AM BP: 93/48 mmHg * [facility]1 HR: 103 * : 1985 (M/d/yyyy) Gender: Male Height: 67 in * Age: 30 yrs Ethnicity: CA Weight: 187 lb * Ordering Physician: Jeffrey Randle * Referring Physician: Self, Referred * Performed By: Willis Cowan RCS * * Reason For Study: Tachycardia * BSA: 2.0 m2 * -- Conclusions -- * The left ventricle is normal in size. * Left ventricular systolic function is normal. * Ejection Fraction = 50-55%. * The right ventricular systolic function is normal. * No significant valvular pathology. Procedure Details * Left Ventricle The left ventricle is normal in size. There is normal left ventricular wall thickness. Ejection Fraction = 50-55%. Left ventricular systolic function is normal. * Right Ventricle The right ventricle is normal size. The right ventricular systolic function is normal. * Atria The left atrial size is normal. Right atrial size is normal. The interatrial septum is intact with no evidence for an atrial septal defect. * Mitral Valve The mitral valve is normal in structure and function. * Tricuspid Valve The tricuspid valve is normal in structure and function. * Aortic Valve The aortic valve is not well visualized. No hemodynamically significant valvular aortic stenosis. There is no significant aortic regurgitation. * Pulmonic Valve The pulmonic valve is not well visualized. There is no pulmonic valvular regurgitation. * Great Vessels The aortic root and proximal ascending aorta are normal sized. * Pericardium/Pleural There is no pericardial effusion. * * MMode 2D Measurements and Calculations * IVSd 0.76 cm * * LVIDd 5.1 cm * LVIDs 3.5 cm * LVPWd 0.69 cm * * IVS/LVPW 1.1 * FS 32.1 % * EDV(Teich) 123.9 ml * ESV(Teich) 49.6 ml * EF(Teich) 60.0 % * * EDV(cubed) 132.8 ml * ESV(cubed) 41.6 ml * EF(cubed) 68.7 % * * LV mass(C)d 123.8 grams * LV mass(C)dI 63.0 grams/m\S\2 * * SV(Teich) 74.3 ml * SI(Teich) 37.8 ml/m\S\2 * SV(cubed) 91.2 ml * SI(cubed) 46.4 ml/m\S\2 * * LVAd ap4 31.6 cm\S\2 * LVLd ap4 9.1 cm * EDV(MOD-sp4) 90.8 ml * EDV(sp4-el) 93.4 ml * LVAs ap4 20.7 cm\S\2 * LVLs ap4 8.0 cm * ESV(MOD-sp4) 45.8 ml * ESV(sp4-el) 45.7 ml * EF(MOD-sp4) 49.5 % * EF(sp4-el) 51.0 % * * LVAd ap2 30.3 cm\S\2 * LVLd ap2 8.3 cm * EDV(MOD-sp2) 93.5 ml * EDV(sp2-el) 93.6 ml * LVAs ap2 18.9 cm\S\2 * LVLs ap2 7.3 cm * ESV(MOD-sp2) 40.2 ml * ESV(sp2-el) 41.4 ml * EF(MOD-sp2) 57.0 % * EF(sp2-el) 55.7 % * * LVLd %diff -9.15 % * EDV(MOD-bp) 96.4 ml * LVLs %diff -9.12 % * ESV(MOD-bp) 44.3 ml * EF(MOD-bp) 54.0 % * * SV(MOD-sp4) 44.9 ml * SI(MOD-sp4) 22.9 ml/m\S\2 * * SV(MOD-sp2) 53.3 ml * SI(MOD-sp2) 27.1 ml/m\S\2 * * SV(MOD-bp) 52.0 ml * SI(MOD-bp) 26.5 ml/m\S\2 * * SV(sp4-el) 47.6 ml * SI(sp4-el) 24.2 ml/m\S\2 * * SV(sp2-el) 52.1 ml * SI(sp2-el) 26.5 ml/m\S\2 * * * * * Doppler Measurements and Calculations * MV E max rebecca 78.6 cm/sec * MV A max rebecca 39.8 cm/sec * * MV E/A 2.0 * * MV dec time 0.14 sec * * Ao V2 max 119.4 cm/sec * Ao max PG 5.7 mmHg * Ao max PG (full) 2.6 mmHg * * LV V1 max PG 3.1 mmHg * * LV V1 max 88.3 cm/sec * * * *
[2016-08-11] MEDS: CLINDAMYCIN IV 900 MG in DEXTROSE 5% 100ML 100 ML IV SCH ×2 (14:39→20:20)
[2016-08-11] MEDS ORDERED: OXYCODONE HCL IR 5 MG TAB (IMMEDIATE RELEASE) PO STA (14:55)
--- NOTE | 2016-08-11 16:36 | DIAGNOSTIC IMAGING REPORT ---
ABDOMEN COMPLETE (US) CLINICAL HISTORY: Sepsis. Abdominal pain. COMPARISON STUDY: CT of the abdomen and pelvis August 10, 2016 and renal ultrasound August 11, 2016. FINDINGS: Liver is sonographically normal. There is no biliary ductal dilatation. The common bile duct measures 3 mm in caliber. No gallstones are identified within the gallbladder. There is borderline gallbladder wall thickening. The pancreas is within normal limits although the head and tail are slightly obscured. A few peripancreatic lymph nodes are likely normal. The size of the spleen is normal. The right kidney measures 10.3 cm and the left measures 11.2 cm. There is no hydronephrosis. Renal size and cortical thickness are normal. Renal echogenicity is increased. The caliber of the abdominal aorta is normal. Incidental note is made of bilateral pleural effusions. There is trace ascites. There is trace perinephric fluid bilaterally. IMPRESSION: 1. No gallstones or biliary ductal dilatation. 2. No hydronephrosis. 3. Increased renal echogenicity which suggests medical renal disease. Trace bilateral perinephric fluid. 4. Bilateral pleural effusions. Electronically signed by: Yusef Thornton M.D. 08/11/2016 4:34 PM Dictated Date/Time: 08/11/2016 4:31 PM
--- NOTE | 2016-08-11 16:37 | Progress Note ---
Internal Med Progress Note Date of Service: Aug 11, 2016. Provider Documentation: SUBJECTIVE: Patient is lying in his bed and is awake but seems distressed & c/o abdominal pain. Denies any nausea/vomiting. "My stomach hurts." OBJECTIVE: Vital Signs-as noted below Examination: General Appearance: WD/WN, + mild distress, Drowsy, lethargic. Head: normocephalic, atraumatic Eyes: normal inspection, PERRL, Sclera congested ENT: normal ENT inspection, hearing grossly normal Neck: supple, trachea midline Respiratory/Chest: lungs clear, normal breath sounds, no respiratory distress, no accessory muscle use Cardiovascular: regular rate, rhythm, no edema, no murmur, + tachycardia Abdomen/GI: normal bowel sounds, Tense, Diffuse tenderness, +flank tenderness. Back: normal inspection Extremities/Musculoskeletal: normal inspection, no pedal edema Neurologic/Psych: Lethargic, grossly no focal deficits. Complete neuro exam could not be performed Skin: normal color, warm/dry Lab data as noted below. ASSESSMENT & PLAN: SPEC #: [id number] GARRY: 08/10/16 STATUS: RES REQ #: [id number] RECD: 08/10/[address]: Francis Urbina , D.O. SOURCE: BLOOD ENTR: 08/10/[address] [facility] [address]: Jeramie Hernandez M.D. SPDC: No Doctor, Assigned Jeffrey Randle MD ORDERED: BLOOD CULTURE Procedure Result Verified Site BLD CULT Preliminary 08/11/16-1332 Organism 1 GRAM POSITIVE COCCI SENS SENSITIVITIES DEPENDENT ON FURTHER IDENTIFICATION Phoned Positive Blood Culture Gram Stain Report to DEVI GARCIA [facility] on 08/11/16 At 1204 By GUILLAUME. Results were verbalized back to GUILLAUME. Echocardiogram (08/11/2016) The left ventricle is normal in size. Left ventricular systolic function is normal. Ejection Fraction = 50-55%. The right ventricular systolic function is normal. No significant valvular pathology. CT Abdomen/Pelvis (08/10/2016): 1. Suboptimal examination without IV contrast. 2. There is nonspecific bilateral perinephric stranding and trace fluid. Correlate clinically and with laboratory findings/urinalysis for evidence of pyelonephritis or acute renal injury. No renal calculi are identified. 3. Liquid stool is noted in the colon. Correlate clinical for evidence of a diarrheal illness. No colonic wall thickening or pericolonic inflammation is seen. Sepsis causing Septic Shock: Likely Gram positive cocci as causative agent. Causing Metabolic Encephalopathy Patient presented with, N/V/D/abd pain: Hypotension, Tachycardia, tachypnea, elevated lactate levels Recent Step.Pharyngitis (Completed Azithromycin) -Unclear source of infection: GI/ infection ? Bacteremia -CT ABD: showed nonspecific bilateral perinephric stranding -Urine Tox screen: Negative -Start board spectrum antibiotics: Vanco and Cefepime & now on Cefepime & Clindamycin as per ID -Blood cultures preliminary results noted. Will follow up -UA:2+ occult blood -MRSA screen is negative -Stool studies including c.diff are negative -Aggressive IV fluids -Random cortisol level is normal -Wrist Closer is following closely. Acute Kidney Injury:Due to above. -Continue IVF -Monitor GFR -Avoid any nephrotoxin if possible. Hypokalemia:Likely secondary to GI losses. Resolved now. -Continue monitoring ? Chest Pain:EKG: Sinus tachycardia, non specific ST changes QTC: prolonged -1st set of Troponin: Negative & now is trending upwards. Will continue following -Reviewed Echocardiogram Bronchial Asthma:Continue home inhalers DVT Prophylaxis:Heparin SQ Code Status:Full Code Disposition:Monitor in ICU Discussed the condition with parents at bedside and answered all their questions. Vital Signs: Date Time Temp Pulse Resp B/P (MAP) Pulse Ox O2 Delivery O2 Flow Rate FiO2 08/11/16 14:00 38.4 94 23 129/64 (85) 100 Nasal Cannula 2.0 08/11/16 12:00 96 Nasal Cannula 2.0 08/11/16 12:00 38.0 93 24 123/66 (85) 100 Nasal Cannula 2.0 08/11/16 10:01 37.9 110 29 128/62 (84) 100 Nasal Cannula 2.0 08/11/16 08:00 98 Nasal Cannula 2.0 08/11/16 08:00 37.3 105 28 116/57 (76) 99 Nasal Cannula 2.0 08/11/16 06:00 103 27 93/48 100 08/11/16 05:30 96 23 97/52 98 08/11/16 05:01 91 23 104/66 98 108/57 08/11/16 04:30 100 23 100/56 97 08/11/16 04:01 100 26 91/53 100 99/52 08/11/16 04:00 37.2 08/11/16 04:00 98 Nasal Cannula 2.0 08/11/16 03:31 105 25 90/65 98 102/56 08/11/16 03:30 105 25 108/59 98 08/11/16 03:01 94 21 102/49 98 91/53 08/11/16 02:31 99 20 119/57 97 81/52 08/11/16 02:01 98 21 88/38 98 79/42 08/11/16 01:43 37.0 08/11/16 01:31 98 20 91/39 100 83/41 08/11/16 01:01 100 21 82/33 98 81/37 08/11/16 00:45 106 19 83/35 99 08/11/16 00:31 124 22 64/44 100 75/30 08/11/16 00:01 117 36 103/61 98 08/10/16 23:59 100 Nasal Cannula 3.0 08/10/16 23:50 116 31 93/44 97 08/10/16 23:31 119 27 93/44 98 08/10/16 23:00 113 24 86/40 100 08/10/16 22:31 113 21 82/42 100 08/10/16 21:46 111 21 78/36 97 08/10/16 21:31 112 23 82/36 97 08/10/16 21:15 112 22 81/35 96 08/10/16 21:00 106 21 73/33 96 08/10/16 21:00 38.2 08/10/16 20:45 107 23 79/33 95 08/10/16 20:31 115 28 61/36 96 08/10/16 20:15 116 21 78/39 95 08/10/16 20:00 96 Nasal Cannula 3.0 08/10/16 19:58 123 21 80/35 88 08/10/16 19:45 117 20 96 08/10/16 19:30 133 20 93 08/10/16 19:16 39.6 128 18 85/48 96 Nasal Cannula 4.0 08/10/16 19:15 128 26 94 08/10/16 19:00 132 25 99 08/10/16 18:30 39.6 127 24 93/39 (57) 88 Room Air 08/10/16 18:03 93/49 08/10/16 18:01 88/47 08/10/16 18:00 137 24 08/10/16 17:45 128 28 08/10/16 17:30 128 28 08/10/16 17:15 133 27 08/10/16 17:00 136 21 08/10/16 16:59 140 94/48 Lab Results: Results Past 24 Hours Test 08/10/16 16:57 08/10/16 16:58 08/10/16 20:00 08/10/16 22:00 Range/Units Bedside Troponin I < 0.030 0-0.045 ng/ml Bedside Lactic Acid Venous 5.02 0.90-1.70 mmol/L Lactic Acid Level 4.3 0.4-2.0 mmol/L Creatine Kinase MB 5.9 0.5-3.6 ng/ml Creatine Kinase MB Ratio 0-3.0 Troponin I 0.083 0-0.045 ng/ml Thyroid Stimulating Hormone (TSH) 0.463 0.300-4.500 uIu/ml Free Thyroxine 1.25 0.80-1.60 ng/dl Test 08/10/16 22:01 08/10/16 23:20 08/11/16 03:55 08/11/16 05:22 Range/Units Bedside Glucose 127 70-99 mg/dl Influenza Type A (RT-PCR) Neg for Influ A NEG Influenza Type B (RT-PCR) Neg for Influ B NEG White Blood Count 48.65 51.54 4.8-10.8 K/uL Red Blood Count 4.70 4.95 4.7-6.1 M/uL Hemoglobin 14.4 14.8 14.0-18.0 g/dL Hematocrit 39.6 41.7 42-52 % Mean Corpuscular Volume 84.3 84.2 80-100 fL Mean Corpuscular Hemoglobin 30.6 29.9 25-34 pg Mean Corpuscular Hemoglobin Concent 36.4 35.5 32-36 g/dl Platelet Count 198 190 130-400 K/uL Mean Platelet Volume 9.6 9.6 7.4-10.4 fL RDW Standard Deviation 38.7 38.5 36.4-46.3 fL RDW Coefficient of Variation 12.6 12.7 11.5-14.5 % Nucleated RBC Absolute Count (auto) 0.06 0.04 0-0 K/uL Neutrophils % (Manual) 85.1 % Lymphocytes % (Manual) 2.5 % Metamyelocytes % 12.4 % Nucleated Red Blood Cells % 0.1 0.1 % Neutrophils # (Manual) 41.40 1.4-6.5 K/uL Total Absolute Neutrophils 41.40 1.4-6.5 K/uL Lymphocytes # (Manual) 1.22 1.2-3.4 K/uL Total Absolute Lymphocytes 1.22 1.2-3.4 K/uL Metamyelocytes # 6.03 0-0 K/uL Platelet Estimate NORMAL NORMAL Polychromasia 1+ Echinocytes 1+ Sodium Level 140 141 136-145 mmol/L Potassium Level 3.8 3.9 3.5-5.1 mmol/L Chloride Level 110 111 98-107 mmol/L Carbon Dioxide Level 20 20 21-32 mmol/L Anion Gap 10.0 10.0 3-11 mmol/L Blood Urea Nitrogen 26 25 7-18 mg/dl Creatinine 2.20 2.10 0.60-1.40 mg/dl Est Creatinine Clear Calc Drug Dose 51.2 53.6 ml/min Estimated GFR () 44.9 47.5 Estimated GFR (Non- 38.8 41.0 BUN/Creatinine Ratio 11.9 12.1 10-20 Random Glucose 115 123 70-99 mg/dl Lactic Acid Level 3.3 0.4-2.0 mmol/L Calcium Level 7.2 7.2 8.5-10.1 mg/dl Phosphorus Level 2.1 2.3 2.5-4.9 mg/dl Magnesium Level 1.1 1.1 1.8-2.4 mg/dl Creatine Kinase MB 10.5 0.5-3.6 ng/ml Creatine Kinase MB Ratio 0-3.0 Troponin I 0.198 0-0.045 ng/ml Neutrophils (%) (Auto) 90.0 % Lymphocytes (%) (Auto) 0.7 % Monocytes (%) (Auto) 0.4 % Eosinophils (%) (Auto) 0.0 % Basophils (%) (Auto) 0.1 % Neutrophils # (Auto) 46.39 1.4-6.5 K/uL Lymphocytes # (Auto) 0.36 1.2-3.4 K/uL Monocytes # (Auto) 0.20 0.11-0.59 K/uL Eosinophils # (Auto) 0.01 0-0.5 K/uL Basophils # (Auto) 0.04 0-0.2 K/uL Immature Granulocyte % (Auto) 8.8 % Immature Granulocyte # (Auto) 4.54 0.00-0.02 K/uL Ionized Calcium 1.01 1.12-1.32 mmol/l Total Bilirubin 1.6 0.2-1 mg/dl Aspartate Amino Transf (AST/SGOT) 66 15-37 U/L Alanine Aminotransferase (ALT/SGPT) 63 12-78 U/L Alkaline Phosphatase 62 45-117 U/L Total Protein 5.0 6.4-8.2 gm/dl Albumin 2.7 3.4-5.0 gm/dl Globulin 2.3 2.5-4.0 gm/dl Albumin/Globulin Ratio 1.2 0.9-2 Lipase 86 73-393 U/L Procalcitonin 94.81 0-0.5 ng/ml Test 08/11/16 05:42 08/11/16 06:43 08/11/16 09:27 08/11/16 11:30 Range/Units Bedside Glucose (other) 126 70-99 mg/dl Lactic Acid Level 3.0 2.7 0.4-2.0 mmol/L Lyme Disease IgG Antibody NEG NEG Lyme Disease IgM Antibody NEG NEG Hepatitis B Surface Antigen NEG NEG Hepatitis C Antibody NEG NEG HIV (1&2) Ab and P24 Ag, 4th Gener NEG NEG Total Creatine Kinase 416 39-308 U/L Troponin I 0.546 0-0.045 ng/ml Monoscreen NEG NEG Test 08/11/16 12:19 08/11/16 15:25 Range/Units Bedside Glucose 112 70-99 mg/dl Lactic Acid Level 2.1 0.4-2.0 mmol/L Magnesium Level 2.4 1.8-2.4 mg/dl Random Vancomycin Level 15.7 mcg/ml Microbiology Results 08/11/16 Blood Culture, Received Pending 08/11/16 Blood Culture, Received Pending 08/11/16 Fungal Smear, Received Pending 08/11/16 Fungal Culture, Received Pending 08/10/16 Blood Culture - Preliminary, Resulted Gram Positive Cocci 08/10/16 Blood Culture - Preliminary, Resulted Gram Positive Cocci 08/10/16 MRSA DNA Surveillance Screen - Final, Complete Specimen Negative for MRSA by DNA Probe
[2016-08-12] VITALS (95 sets, daily range): BP systolic 78–168; BP diastolic 35–93; PULSE 71–121; TEMP 37.4–38.7; O2SAT 87–100
[2016-08-12] MEDS: ASCORBIC ACID INJ 1,500 MG in NSS 100 ML IV SCH ×4 (03:29→22:04)
[2016-08-12] MEDS: NORMOSOL R 1,000 ML IV SCH ×2 (03:30→11:38)
[2016-08-12] MEDS: CHLORASEPTIC 1.4% SOLN 180 ML BTL MT PRN ×4 (03:39→19:44)
[2016-08-12] MEDS: ONDANSETRON INJ 2 MG/ML 2 ML VIAL IV PRN ×2 (04:11→14:01)
[2016-08-12] MEDS: CLINDAMYCIN IV 900 MG in DEXTROSE 5% 100ML 100 ML IV SCH ×3 (04:17→20:53)
[2016-08-12 04:32] LABS: BUN/CREATININE RATIO 9.6 (10-20); CALCIUM 6.9 mg/dl (8.5-10.1); CREATININE 1.6 mg/dl (0.60-1.40); MAGNESIUM 2.5 mg/dl (1.8-2.4); POTASSIUM 3.7 mmol/L (3.5-5.1)
[2016-08-12 04:36] LABS: HEMATOCRIT 38.6 % (42-52); MEAN CELL VOLUME 83.5 fL (80-100); MEAN CORPUSCULAR HGB CONC 34.7 g/dl (32-36); MEAN PLATELET VOLUME 9.8 fL (7.4-10.4); PLATELET COUNT 96 K/uL (130-400); RED BLOOD COUNT 4.62 M/uL (4.7-6.1); WHITE BLOOD COUNT 30.57 K/uL (4.8-10.8)
[2016-08-12 04:39] LABS: BASO % 0.1 %; BASO ABS # 0.03 K/uL (0-0.2); COMPLETE YES; DOHLE BODIES 1+; ECHINOCYTES 3+; IG% 8.8 %; LYMPH % 1.8 %; LYMPH ABS # 0.56 K/uL (1.2-3.4); MONO % 2.6 %; NEUT % 86.7 %; VACUOLIZATION 2+
[2016-08-12] MEDS: HEPARIN SOD 5000 UNIT/0.5 ML CARP SQ SCH ×3 (05:20→22:00)
[2016-08-12] MEDS ORDERED: VANCOMYCIN TROUGH ONE (05:30)
[2016-08-12] MEDS ORDERED: SODIUM PHOSPHATE 3 MMOL/1 ML INFUSION IV ONE (05:45)
[2016-08-12] MEDS ORDERED: SODIUM PHOSPHATE INJ 15 MMOL in SODIUM CHLORIDE 0.9% 250ML 250 ML IV SCH (06:00)
[2016-08-12] MEDS ORDERED: VANCOMYCIN INJ 1,750 MG in SODIUM CHLORIDE 0.9% 500ML 500 ML IV ONE (08:00)
[2016-08-12] MEDS: CEFEPIME IV 2,000 MG in DEXTROSE 5% 100ML 100 ML IV SCH (08:11)
[2016-08-12] MEDS: FAMOTIDINE IV INJ 20 MG in DEXTROSE 5% 100ML 100 ML IV SCH ×2 (08:12→22:04)
[2016-08-12] MEDS: FLUTICASONE/SALMETEROL (ADVAIR) 500/50 INH 14 PUFF INH SCH ×2 (08:12→20:53)
[2016-08-12] MEDS: ACETAMINOPHEN 325 MG TAB PO PRN ×2 (08:13→14:01)
[2016-08-12] MEDS ORDERED: DIGOXIN IV 250 MCG in SYRINGE 9 ML IV ONE (08:30)
--- NOTE | 2016-08-12 08:30 | Critical Care Progress Note ---
Critical Care Progress Note Date of Service Aug 12, 2016. ICU Day ICU Day Number: [address] Urbina Objective General Appearance: Uncomfortable Head: normocephalic, atraumatic Eyes: sclerae injected Respiratory: Scattered rhonchi Cardiovasular: no M/G/R, irregular rate (tachycardia) Abdomen: no masses, epigastric TTP, RUQ TTP, LUQ TTP, RLQ TTP, LLQ TTP, hyperactive bowel sounds Back: normal inspection, no midline tenderness Neuro: alert, oriented x 3 Current SOFA Score SOFA Score Response (Comments) Value Platelets (x10) < 100 2 Bilirubin (mg/dL) 1.2 - 1.9 1 Alejandra Coma Score 15 0 Level of Hypotension Dopamine > 5 mcq or Epi < 0.1 mcq 3 Creatinine (mg/dL) 1.2 - 1.9 1 Total 7 Previous SOFA Scores 4 08/10/2016, 6 08/11/2016 Assessment & Plan Neuro: Fever * IV Tylenol 1 g every 8 hours when necessary Resp: Supplemental oxygen when necessary CV: Sinus tachycardia, hypotension * Phenylephrine infusion decreasing requirements * Echocardiogram completed, no significant valvulopathy * Troponins decreasing * Suspect troponin elevation secondary to tachycardia Fluids/Renal: Advance to liquids diet * Decreasing IVF * Full liquid diet due to stable in decreasing vasoactive medication requirements Acute kidney injury * Normosol at 75 ML's per hour * Continue strict I/Os * Renal ultrasound reviewed * Check urine eosinophils ID: Sepsis: Gram positive cocci, recent sore throat * Cefepime 2 g every 12 hours gram-negative coverage, also has streptococcal coverage * Vancomycin loaded with 1750 mg today * Repeat blood cultures pending * Flagyl discontinued * Doxycycline discontinued * Clindamycin 900 mg every 8 hours for antitoxin effect * Stool culture: Negative C. difficile negative * Sent fungal blood culture: Pending * Viral considerations: hepatitis B surface antigen negative, hepatitis C antibody negative, HIV: Negative, influenza negative * Lyme titers: Negative * Will consider CT scan of neck for possible phlegmon if no significant improvement in clinical condition * Given vancomycin today and creatinine clearance 69, will attempt to avoid IV contrast today GI/Nutrition: Transaminitis * Likely secondary to shock liver * GI consultation for further evaluation and possible GI sources of infection Converted diet to liquids, given stable vasoactive medication requirements Heme: Heparin 5000 units every 8 hours DVT prophylaxis * Leukemoid reaction * Improving * Anemia * Likely multifactorial, no obvious blood loss * Thrombocytopenia * Hit score 2, likely secondary to sepsis * Continue with heparin prophylaxis given poor renal function Endocrine: Accu-Cheks, glucose within acceptable limits at this time * Cortisol: 26 unlikely to be adrenal insufficiency * Thyroid studies within normal limits, excludes thyroid storm Vascular access: Right internal jugular triple-lumen placed 08/10/2016 Right radial arterial line placed 08/10/2016 Activity: Bathroom privileges out of bed to chair I have personally spent 40 minutes of critical care time in the direct management of this patient. This is a life/limb threatening event. This includes time spent evaluating patient, direct bedside care, chart review, placing orders, interpretation of diagnostic studies, discussion with consultants, patient, and family members, as well as other required patient management activities. This time is exclusive of all separately billable procedures, and teaching time and separate from and in addition to any other critical care service time. I discussed the case with Dr. Palumbo of infectious disease Will de-escalate antibiotics to Rocephin and clindamycin. The patient does not have significant improvement in the next 24 hours we may proceed with CT scan of the neck to evaluate for phlegmon requiring surgical drainage. Consults & Procedures Consultants: Gastroenterology Infectious disease Procedures: Right internal jugular triple lumen central venous catheter: 08/10/2016 Right radial arterial line 08/10/2016 Limited bedside echo cardiogram 08/10/2016 Data Medications: Current Inpatient Medications Medications (Trade) Dose Ordered Sig/Lanie Route Start Time Stop Time Status Last Admin Dose Admin Ioversol (Optiray 320) 100 ml UD PRN IV 08/10/16 14:15 08/14/16 14:14 Heparin Sodium (Porcine) (Heparin Sq 5000 Unit/0.5ml) 5,000 unit Q8 SQ 08/10/16 22:00 09/09/16 21:59 08/12/16 05:20 5,000 UNIT Acetaminophen (Tylenol Tab) 650 mg Q4H PRN PO 08/10/16 17:45 09/09/16 17:44 08/11/16 03:20 650 MG Levalbuterol (Xopenex 1.25MG/ 3ML Neb) 1.25 mg Q6H PRN INH 08/10/16 17:45 09/09/16 17:44 Ondansetron HCl (Zofran Inj) 4 mg Q6H PRN IV 08/10/16 17:45 09/09/16 17:44 08/12/16 04:11 4 MG Cefepime HCl 2000 mg/Dextrose 112.5 ml @ 200 mls/hr Q12H IV 08/10/16 19:00 08/20/16 18:59 08/11/16 20:17 200 MLS/HR Salmeterol Xinafoate/ Fluticasone (Advair Diskus 500/50 Inh) 1 puff BID INH 08/10/16 21:00 09/09/16 20:59 08/11/16 20:18 1 PUFF Acetaminophen 100 ml @ 400 mls/hr Q8H PRN IV 08/10/16 19:00 09/09/16 18:59 08/11/16 19:54 400 MLS/HR Vancomycin HCl (Consult) 1 ea UD PRN N/A 08/10/16 19:00 09/09/16 18:59 Parenteral Electrolyte Solution 1,000 ml @ 150 mls/hr Q6H40M IV 08/10/16 19:30 09/09/16 19:29 08/12/16 03:30 150 MLS/HR Phenylephrine HCl 80 mg/Dextrose 508 ml @ 0 mls/hr Q0M PRN IV 08/10/16 23:45 09/09/16 23:44 08/11/16 20:52 63.8 MLS/HR Famotidine 20 mg/ Dextrose 102 ml @ 204 mls/hr Q12H IV 08/11/16 09:30 09/10/16 09:29 08/11/16 20:49 204 MLS/HR Ascorbic Acid 1500 mg/Sodium Chloride 103 ml @ 206 mls/hr Q6H IV 08/11/16 10:00 08/15/16 04:29 08/12/16 03:29 206 MLS/HR Thiamine HCl 200 mg/Sodium Chloride 52 ml @ 210 mls/hr Q12H IV 08/11/16 10:30 09/10/16 10:29 08/11/16 21:41 210 MLS/HR Cefepime HCl (Consult) 1 ea UD PRN N/A 08/11/16 10:45 09/10/16 10:44 Clindamycin Phosphate 900 mg/ Dextrose 106 ml @ 100 mls/hr Q8H IV 08/11/16 13:00 08/13/16 12:59 08/12/16 04:17 100 MLS/HR Phenol (Chloraseptic 1.4% Ephraim) 2 sprays Q2H PRN MT 08/12/16 03:15 09/11/16 03:14 08/12/16 03:39 2 SPRAYS Heparin Sodium (Porcine) (Heparin 10 Unit/ ml 5 ml Flush) 5 ml PRN PRN FLUSH 08/12/16 04:45 09/11/16 04:44 Sodium Phosphate 15 mmol/Sodium Chloride 255 ml @ 127 mls/hr TODAY@0600 IV 08/12/16 06:00 08/12/16 08:01 08/12/16 06:24 127 MLS/HR Vancomycin HCl 1750 mg/Sodium Chloride 535 ml @ 200 mls/hr 0800 ONCE IV 08/12/16 08:00 08/12/16 10:40 Vital Signs: Date Time Temp Pulse Resp B/P (MAP) Pulse Ox O2 Delivery O2 Flow Rate FiO2 08/12/16 06:01 83 20 94/50 (71) 92 108/57 08/12/16 05:01 96 30 98/41 (73) 92 108/60 08/12/16 04:16 105 24 82/56 (70) 94 119/54 08/12/16 04:16 105 24 82/56 (70) 94 119/54 08/12/16 04:01 38.7 109 23 104/56 (70) 95 120/50 08/12/16 04:00 Nasal Cannula 2.0 08/12/16 03:46 111 27 103/59 (75) 96 138/53 08/12/16 03:31 105 23 108/50 (66) 95 119/47 08/12/16 03:16 117 29 98/49 (68) 95 124/47 08/12/16 03:01 114 27 95/55 (68) 99 119/46 08/12/16 02:46 106 25 92/48 (65) 99 116/44 08/12/16 02:31 96 20 105/51 (66) 97 91/65 08/12/16 02:27 99 21 115/54 (71) 100 129/51 08/12/16 02:01 107 28 121/57 (79) 100 136/58 08/12/16 01:01 37.7 97 22 109/52 (76) 100 127/57 08/12/16 00:01 Nasal Cannula 2.0 08/12/16 00:01 91 18 107/52 (67) 100 116/49 08/11/16 23:01 100 21 101/53 (73) 99 113/54 08/11/16 22:01 95 25 106/50 (68) 98 110/51 08/11/16 21:21 101 23 101/50 (41) 98 46/38 08/11/16 21:01 94 24 98/45 (61) 95 96/45 08/11/16 20:01 37.6 110 24 96/51 (68) 100 111/51 08/11/16 20:00 Nasal Cannula 2.0 08/11/16 19:01 115 22 109/52 (83) 100 137/60 08/11/16 18:01 93 22 136/66 (89) 100 08/11/16 18:00 38.8 92 21 133/64 (87) 100 08/11/16 17:45 93 23 134/68 (90) 100 08/11/16 17:30 94 21 129/63 (85) 99 08/11/16 17:15 118 32 128/61 (83) 100 08/11/16 17:01 109 26 134/65 (88) 97 08/11/16 17:00 107 27 129/72 (91) 100 08/11/16 16:45 113 29 141/75 (97) 100 08/11/16 16:30 122 33 142/76 (98) 100 08/11/16 16:15 94 22 130/68 (88) 100 08/11/16 16:01 102 26 132/71 (91) 100 08/11/16 16:00 95 Nasal Cannula 2.0 08/11/16 16:00 38.5 97 23 129/69 (89) 99 08/11/16 14:00 38.4 94 23 129/64 (85) 100 Nasal Cannula 2.0 08/11/16 12:00 96 Nasal Cannula 2.0 08/11/16 12:00 38.0 93 24 123/66 (85) 100 Nasal Cannula 2.0 08/11/16 10:01 37.9 110 29 128/62 (84) 100 Nasal Cannula 2.0 08/11/16 08:00 98 Nasal Cannula 2.0 08/11/16 08:00 37.3 105 28 116/57 (76) 99 Nasal Cannula 2.0 Laboratory Results: Last 24 Hours Test 08/11/16 09:27 08/11/16 11:30 08/11/16 12:19 08/11/16 15:25 Lactic Acid Level 2.7 mmol/L 2.1 mmol/L Lyme Disease IgG Antibody NEG Lyme Disease IgM Antibody NEG Hepatitis B Surface Antigen NEG Hepatitis C Antibody NEG HIV (1&2) Ab and P24 Ag, 4th Gener NEG Total Creatine Kinase 416 U/L Troponin I 0.546 ng/ml Monoscreen NEG Bedside Glucose 112 mg/dl Magnesium Level 2.4 mg/dl Random Vancomycin Level 15.7 mcg/ml Test 08/11/16 18:11 08/11/16 20:02 08/11/16 20:30 08/11/16 21:24 Bedside Glucose 89 mg/dl Lactic Acid Level 2.0 mmol/L Troponin I 0.778 ng/ml Bedside Glucose (other) 157 mg/dl Test 08/12/16 04:05 08/12/16 05:27 08/12/16 05:47 White Blood Count 30.57 K/uL Red Blood Count 4.62 M/uL Hemoglobin 13.4 g/dL Hematocrit 38.6 % Mean Corpuscular Volume 83.5 fL Mean Corpuscular Hemoglobin 29.0 pg Mean Corpuscular Hemoglobin Concent 34.7 g/dl Platelet Count 96 K/uL Mean Platelet Volume 9.8 fL Neutrophils (%) (Auto) 86.7 % Lymphocytes (%) (Auto) 1.8 % Monocytes (%) (Auto) 2.6 % Eosinophils (%) (Auto) 0.0 % Basophils (%) (Auto) 0.1 % Neutrophils # (Auto) 26.51 K/uL Lymphocytes # (Auto) 0.56 K/uL Monocytes # (Auto) 0.78 K/uL Eosinophils # (Auto) 0.00 K/uL Basophils # (Auto) 0.03 K/uL RDW Standard Deviation 39.4 fL RDW Coefficient of Variation 13.0 % Immature Granulocyte % (Auto) 8.8 % Immature Granulocyte # (Auto) 2.69 K/uL Toxic Vacuolation 2+ Dohle Bodies 1+ Echinocytes 3+ Sodium Level 142 mmol/L Potassium Level 3.7 mmol/L Chloride Level 112 mmol/L Carbon Dioxide Level 23 mmol/L Anion Gap 7.0 mmol/L Blood Urea Nitrogen 15 mg/dl Creatinine 1.60 mg/dl Est Creatinine Clear Calc Drug Dose 69.0 ml/min Estimated GFR () 66.0 Estimated GFR (Non- 57.0 BUN/Creatinine Ratio 9.6 Random Glucose 91 mg/dl Lactic Acid Level 1.9 mmol/L Calcium Level 6.9 mg/dl Phosphorus Level 2.0 mg/dl Magnesium Level 2.5 mg/dl Troponin I 0.610 ng/ml Vancomycin Level Trough 4.3 mcg/ml Bedside Glucose (other) 113 mg/dl
[2016-08-12] MEDS ORDERED: DICYCLOMINE HCL 10 MG CAP PO ONE (09:21)
[2016-08-12] MEDS ORDERED: LOPERAMIDE HCL 2 MG CAP PO PRN (09:30)
[2016-08-12] MEDS ORDERED: DICYCLOMINE HCL 10 MG CAP PO PRN (09:30)
[2016-08-12] MEDS: PROCHLORPERAZINE INJ 10 MG in SYRINGE 8 ML IV PRN ×2 (10:04→17:48)
[2016-08-12] MEDS: THIAMINE HCL INJ 200 MG in NSS 50ML IV SCH ×2 (10:06→22:04)
--- NOTE | 2016-08-12 10:11 | Pharmacy Progress Note ---
Pharmacy Abx Dose Progress Nt Date of Service Aug 12, 2016. Pharmacy Dosing Scope The patient is currently receiving the following antimicrobial agents: * Vancomycin * Cefepime * Clindamycin Objective Height (Feet): 5 Height (Inches): 7.00 Weight (Kilograms): 82.600 Vital Signs (Past 12Hrs) Vital Signs Past 12 Hours Date Time Temp Pulse Resp B/P (MAP) Pulse Ox O2 Delivery O2 Flow Rate FiO2 08/12/16 06:01 83 20 94/50 (71) 92 108/57 08/12/16 05:01 96 30 98/41 (73) 92 108/60 08/12/16 04:16 105 24 82/56 (70) 94 119/54 08/12/16 04:16 105 24 82/56 (70) 94 119/54 08/12/16 04:01 38.7 109 23 104/56 (70) 95 120/50 08/12/16 04:00 Nasal Cannula 2.0 08/12/16 03:46 111 27 103/59 (75) 96 138/53 08/12/16 03:31 105 23 108/50 (66) 95 119/47 08/12/16 03:16 117 29 98/49 (68) 95 124/47 08/12/16 03:01 114 27 95/55 (68) 99 119/46 08/12/16 02:46 106 25 92/48 (65) 99 116/44 08/12/16 02:31 96 20 105/51 (66) 97 91/65 08/12/16 02:27 99 21 115/54 (71) 100 129/51 08/12/16 02:01 107 28 121/57 (79) 100 136/58 08/12/16 01:01 37.7 97 22 109/52 (76) 100 127/57 08/12/16 00:01 Nasal Cannula 2.0 08/12/16 00:01 91 18 107/52 (67) 100 116/49 08/11/16 23:01 100 21 101/53 (73) 99 113/54 Lab Results (24Hrs) Laboratory Tests (24 Hours) Test 08/11/16 11:30 08/12/16 04:05 Total Creatine Kinase 416 U/L (39-308) H Lactic Acid Level 1.9 mmol/L (0.4-2.0) White Blood Count 30.57 K/uL (4.8-10.8) #*H Red Blood Count 4.62 M/uL (4.7-6.1) L Hemoglobin 13.4 g/dL (14.0-18.0) L Hematocrit 38.6 % (42-52) L Mean Corpuscular Volume 83.5 fL (80-100) Mean Corpuscular Hemoglobin 29.0 pg (25-34) Mean Corpuscular Hemoglobin Concent 34.7 g/dl (32-36) Platelet Count 96 K/uL (130-400) L Mean Platelet Volume 9.8 fL (7.4-10.4) Neutrophils (%) (Auto) 86.7 % Lymphocytes (%) (Auto) 1.8 % Monocytes (%) (Auto) 2.6 % Eosinophils (%) (Auto) 0.0 % Basophils (%) (Auto) 0.1 % Neutrophils # (Auto) 26.51 K/uL (1.4-6.5) H Lymphocytes # (Auto) 0.56 K/uL (1.2-3.4) L Monocytes # (Auto) 0.78 K/uL (0.11-0.59) H Eosinophils # (Auto) 0.00 K/uL (0-0.5) Basophils # (Auto) 0.03 K/uL (0-0.2) Micro Results Date/Time Source Procedure Growth Status 08/11/16 11:40 Blood Blood Culture Pending Received 08/11/16 11:30 Blood Blood Culture Pending Received 08/11/16 11:30 Blood Fungal Smear - Final Resulted 08/11/16 11:30 Blood Fungal Culture Pending Resulted 08/10/16 17:22 Blood Blood Culture - Preliminary Gram Positive Cocci Resulted 08/10/16 17:15 Blood Blood Culture - Preliminary Gram Positive Cocci Resulted 08/10/16 20:00 Nasal MRSA DNA Surveillance Screen - Final Specimen Negative for MRSA by DNA Probe Complete 08/10/16 15:10 Stool Shiga Toxin Test - Preliminary Resulted 08/10/16 15:10 Stool Stool Culture - Preliminary NO SALMONELLA ISOLATED TO DATE,... Resulted 08/10/16 15:10 Stool C.difficile Toxin B Gene (PCR) - Final No C. difficile toxin B gene detected Complete 08/10/16 15:10 Urine , Clean Catch Urine Culture - Final NO GROWTH - LESS THAN 1,000 COLONIES/ML Complete Item Value Date Time Monoscreen NEG 08/11/16 1130 Lyme Disease IgM Antibody NEG 08/11/16926 Lyme Disease IgG Antibody NEG 08/11/16 09 Hepatitis B Core IgM Antibody NON-REACTIVE 08/11/16 09 Hepatitis A IgM Antibody NON-REACTIVE 08/11/16 09 Influenza Type B (RT-PCR) Neg for Influ B 08/10/16 2320 Influenza Type A (RT-PCR) Neg for Influ A 08/10/16 2320 Hepatitis C Antibody NEG 08/11/16926 Hepatitis B Surface Antigen NEG 08/11/16926 Anti-Streptolysin O Antibody Screen NEG IU/ml 08/10/16 1250 Risk Factors for Resistance * Antimicrobial use within the last 90 days * Zithromax for strep throat Assessment & Plan Assessment * 30 year old male receiving broad-spectrum antibiotic therapy for treatment of sepsis secondary to Gram-positive bacteremia * Day # 3 of antimicrobial therapy. * Continues to require IV vasopressors (phenylephrine) * WBC and lactic acid decreasing * Serum creatinine peaked and now slowing decreasing toward baseline * ID and GI have been consulted to assist with patient care Plan * Broad-spectrum ABX for the treatment of sepsis secondary to Gram-positive cocci in 2 of 2 blood cultures, possibility for toxic shock syndrome secondary to recent strep throat Vancomycin IV - gram positive coverage * Random level yesterday 15.7mcg/mL * Random level this AM 4.3mcg/mL * Re-load vancomycin with 1750mg (~21mg/kg) IV x1, then begin vancomycin 1250mg (~15mg/kg) IV every 8 hours * follow up trough level prior to 16:00 dose on 08/13/16 Cefepime IV - gram negative coverage (including pseudomonas) * Target dose: 2000mg IV every 12 hours * No dose adjustment required Clindamycin IV - anti-toxin effect * Target dose: 900mg IV every 8 hours x48 hours * No dose adjustment needed Pharmacy will continue to follow and will adjust dose/frequency as necessary. Thank you.
--- NOTE | 2016-08-12 10:35 | Infectious Disease Progress Nt ---
Progress Note Date of Service Aug 12, 2016. Subjective Pt evaluation today including: conversation w/ patient, physical exam, chart review, lab review, review of studies, conversation w/ recruiting operations consultant, review of inpatient medication list Patient offers no new specific complaints. Remains weak, lethargic, difficult to engage in conversation, but hemodynamically improved with decreasing pressor support. Blood cultures now growing group a strep. Constitutional: + fever, + weakness, + fatigue Eyes: No problem reported ENT: + sore throat Respiratory: No problem reported Cardiovascular: No problem reported Breast: No problem reported Abdomen: + pain, + diarrhea Musculoskeletal: + joint pain, + muscle pain Male : No problem reported Neurologic: + weakness Psychiatric: No problem reported Heme: No problem reported Endo: No problem reported Skin: No problem reported Medications Current Inpatient Medications Medications (Trade) Dose Ordered Sig/Lanie Route Start Time Stop Time Status Last Admin Dose Admin Ioversol (Optiray 320) 100 ml UD PRN IV 08/10/16 14:15 08/14/16 14:14 Heparin Sodium (Porcine) (Heparin Sq 5000 Unit/0.5ml) 5,000 unit Q8 SQ 08/10/16 22:00 09/09/16 21:59 08/12/16 05:20 5,000 UNIT Acetaminophen (Tylenol Tab) 650 mg Q4H PRN PO 08/10/16 17:45 09/09/16 17:44 08/12/16 08:13 650 MG Levalbuterol (Xopenex 1.25MG/ 3ML Neb) 1.25 mg Q6H PRN INH 08/10/16 17:45 09/09/16 17:44 Ondansetron HCl (Zofran Inj) 4 mg Q6H PRN IV 08/10/16 17:45 09/09/16 17:44 08/12/16 04:11 4 MG Cefepime HCl 2000 mg/Dextrose 112.5 ml @ 200 mls/hr Q12H IV 08/10/16 19:00 08/20/16 18:59 08/12/16 08:11 200 MLS/HR Salmeterol Xinafoate/ Fluticasone (Advair Diskus 500/50 Inh) 1 puff BID INH 08/10/16 21:00 09/09/16 20:59 08/12/16 08:12 1 PUFF Acetaminophen 100 ml @ 400 mls/hr Q8H PRN IV 08/10/16 19:00 09/09/16 18:59 08/11/16 19:54 400 MLS/HR Vancomycin HCl (Consult) 1 [facility] PRN N/A 08/10/16 19:00 09/09/16 18:59 Parenteral Electrolyte Solution 1,000 ml @ 75 mls/hr [id number] IV 08/10/16 19:30 09/09/16 19:29 08/12/16 03:30 150 MLS/HR Phenylephrine HCl 80 mg/Dextrose 508 ml @ 0 mls/hr Q0M PRN IV 08/10/16 23:45 09/09/16 23:44 08/11/16 20:52 63.8 MLS/HR Famotidine 20 mg/ Dextrose 102 ml @ 204 mls/hr Q12H IV 08/11/16 09:30 09/10/16 09:29 08/12/16 08:12 204 MLS/HR Ascorbic Acid 1500 mg/Sodium Chloride 103 ml @ 206 mls/hr Q6H IV 08/11/16 10:00 08/15/16 04:29 08/12/16 10:06 206 MLS/HR Thiamine HCl 200 mg/Sodium Chloride 52 ml @ 210 mls/hr Q12H IV 08/11/16 10:30 09/10/16 10:29 08/12/16 10:06 210 MLS/HR Cefepime HCl (Consult) 1 [facility] PRN N/A 08/11/16 10:45 09/10/16 10:44 Clindamycin Phosphate 900 mg/ Dextrose 106 ml @ 100 mls/hr Q8H IV 08/11/16 13:00 08/13/16 12:59 08/12/16 04:17 100 MLS/HR Phenol (Chloraseptic 1.4% [place]) 2 sprays Q2H PRN MT 08/12/16 03:15 09/11/16 03:14 08/12/16 08:13 2 SPRAYS Heparin Sodium (Porcine) (Heparin 10 Unit/ ml 5 ml Flush) 5 ml PRN PRN FLUSH 08/12/16 04:45 09/11/16 04:44 Vancomycin HCl 1750 mg/Sodium Chloride 535 ml @ 200 mls/hr 0800 ONCE IV 08/12/16 08:00 08/12/16 10:40 08/12/16 08:11 200 MLS/HR Prochlorperazine Edisylate 10 mg/ Syringe 10 ml @ 5 mls/min Q6H PRN IV 08/12/16 08:30 09/11/16 08:29 08/12/16 10:04 5 MLS/MIN Dicyclomine HCl (Bentyl Cap) 10 mg TID PRN PO 08/12/16 09:30 09/11/16 09:29 Dicyclomine HCl (Bentyl Cap) 10 mg BID PO 08/12/16 21:00 09/11/16 20:59 Loperamide HCl (Imodium Cap) 2 mg TID PRN PO 08/12/16 09:30 09/11/16 09:29 Vancomycin HCl 1250 mg/Sodium Chloride 275 ml @ 125 mls/hr Q8H IV 08/12/16 16:00 08/19/16 23:59 Objective Vital Signs Date Time Temp Pulse Resp B/P (MAP) Pulse Ox O2 Delivery O2 Flow Rate FiO2 08/12/16 06:01 83 20 94/50 (71) 92 108/57 08/12/16 05:01 96 30 98/41 (73) 92 108/60 08/12/16 04:16 105 24 82/56 (70) 94 119/54 08/12/16 04:16 105 24 82/56 (70) 94 119/54 08/12/16 04:01 38.7 109 23 104/56 (70) 95 120/50 08/12/16 04:00 Nasal Cannula 2.0 08/12/16 03:46 111 27 103/59 (75) 96 138/53 08/12/16 03:31 105 23 108/50 (66) 95 119/47 08/12/16 03:16 117 29 98/49 (68) 95 124/47 08/12/16 03:01 114 27 95/55 (68) 99 119/46 08/12/16 02:46 106 25 92/48 (65) 99 116/44 08/12/16 02:31 96 20 105/51 (66) 97 91/65 08/12/16 02:27 99 21 115/54 (71) 100 129/51 08/12/16 02:01 107 28 121/57 (79) 100 136/58 08/12/16 01:01 37.7 97 22 109/52 (76) 100 127/57 08/12/16 00:01 Nasal Cannula 2.0 08/12/16 00:01 91 18 107/52 (67) 100 116/49 08/11/16 23:01 100 21 101/53 (73) 99 113/54 08/11/16 22:01 95 25 106/50 (68) 98 110/51 08/11/16 21:21 101 23 101/50 (41) 98 46/38 08/11/16 21:01 94 24 98/45 (61) 95 96/45 08/11/16 20:01 37.6 110 24 96/51 (68) 100 111/51 08/11/16 20:00 Nasal Cannula 2.0 08/11/16 19:01 115 22 109/52 (83) 100 137/60 08/11/16 18:01 93 22 136/66 (89) 100 08/11/16 18:00 38.8 92 21 133/64 (87) 100 08/11/16 17:45 93 23 134/68 (90) 100 08/11/16 17:30 94 21 129/63 (85) 99 08/11/16 17:15 118 32 128/61 (83) 100 08/11/16 17:01 109 26 134/65 (88) 97 08/11/16 17:00 107 27 129/72 (91) 100 08/11/16 16:45 113 29 141/75 (97) 100 08/11/16 16:30 122 33 142/76 (98) 100 08/11/16 16:15 94 22 130/68 (88) 100 08/11/16 16:01 102 26 132/71 (91) 100 08/11/16 16:00 95 Nasal Cannula 2.0 08/11/16 16:00 38.5 97 23 129/69 (89) 99 08/11/16 14:00 38.4 94 23 129/64 (85) 100 Nasal Cannula 2.0 08/11/16 12:00 96 Nasal Cannula 2.0 08/11/16 12:00 38.0 93 24 123/66 (85) 100 Nasal Cannula 2.0 Physical Exam General Appearance: WD/WN, + mild distress Eyes: normal inspection, EOMI, sclerae normal ENT: normal ENT inspection, pharynx normal Neck: supple, no adenopathy, thyroid normal, trachea midline Respiratory/Chest: chest non-tender, no respiratory distress, + rhonchi Cardiovascular: regular rate, rhythm, no gallop, no murmur Abdomen: normal bowel sounds, soft, no organomegaly, + rebound Extremities: non-tender, no calf tenderness Neurologic/Psychiatric: alert, oriented x 3 Skin: normal color, no rash Lymphatic: no adenopathy Laboratory Results RUN DATE: 08/12/16 [facility] LAB PAGE 1 RUN TIME: 1021 Specimen Inquiry PATIENT: RACHEL ZIMMER [facility] [place] [id number] AGE/SX: 30/M ROOM: E107 REG : 08/10/[address]: Elian New MD : 1985 BED: 1 DIS : STATUS: ADM IN TLOC: SPEC #: [id number] GARRY: 08/10/16 STATUS: RES REQ #: [id number] RECD: 08/10/[address]: Jeramie Hernandez M.D. SOURCE: BLOOD ENTR: 08/10/[address]: Adali Porras, Assigned [facility]: Jeffrey Randle MD ORDERED: BLOOD CULTURE Procedure Result Verified Site BLD CULT Preliminary 08/12/16-1021 Organism 1 GROUP A BETA STREP SENS NO SENSITIVITY TO FOLLOW Phoned Positive Blood Culture Gram Stain [place] [facility] [place] At 0956 By GUILLAUME. Results were verbalized back to GUILLAUME. Last 24 Hours Test 08/11/16 11:30 08/11/16 12:19 08/11/16 15:25 08/11/16 18:11 Total Creatine Kinase 416 U/L Troponin I 0.546 ng/ml Monoscreen NEG Bedside Glucose 112 mg/dl 89 mg/dl Lactic Acid Level 2.1 mmol/L Magnesium Level 2.4 mg/dl Random Vancomycin Level 15.7 mcg/ml Test 08/11/16 20:02 08/11/16 20:30 08/11/16 21:24 08/12/16 04:05 Lactic Acid Level 2.0 mmol/L 1.9 mmol/L Troponin I 0.778 ng/ml 0.610 ng/ml Bedside Glucose (other) 157 mg/dl White Blood Count 30.57 K/uL Red Blood Count 4.62 M/uL Hemoglobin 13.4 g/dL Hematocrit 38.6 % Mean Corpuscular Volume 83.5 fL Mean Corpuscular Hemoglobin 29.0 pg Mean Corpuscular Hemoglobin Concent 34.7 g/dl Platelet Count 96 K/uL Mean Platelet Volume 9.8 fL Neutrophils (%) (Auto) 86.7 % Lymphocytes (%) (Auto) 1.8 % Monocytes (%) (Auto) 2.6 % Eosinophils (%) (Auto) 0.0 % Basophils (%) (Auto) 0.1 % Neutrophils # (Auto) 26.51 K/uL Lymphocytes # (Auto) 0.56 K/uL Monocytes # (Auto) 0.78 K/uL Eosinophils # (Auto) 0.00 K/uL Basophils # (Auto) 0.03 K/uL RDW Standard Deviation 39.4 fL RDW Coefficient of Variation 13.0 % Immature Granulocyte % (Auto) 8.8 % Immature Granulocyte # (Auto) 2.69 K/uL Toxic Vacuolation 2+ Dohle Bodies 1+ Echinocytes 3+ Sodium Level 142 mmol/L Potassium Level 3.7 mmol/L Chloride Level 112 mmol/L Carbon Dioxide Level 23 mmol/L Anion Gap 7.0 mmol/L Blood Urea Nitrogen 15 mg/dl Creatinine 1.60 mg/dl Est Creatinine Clear Calc Drug Dose 69.0 ml/min Estimated GFR () 66.0 Estimated GFR (Non- 57.0 BUN/Creatinine Ratio 9.6 Random Glucose 91 mg/dl Calcium Level 6.9 mg/dl Phosphorus Level 2.0 mg/dl Magnesium Level 2.5 mg/dl Test 08/12/16 05:27 08/12/16 05:47 Vancomycin Level Trough 4.3 mcg/ml Bedside Glucose (other) 113 mg/dl CLINICAL HISTORY: 30 year-old Male presenting with central venous line placement. TECHNIQUE: Portable AP upright view of the chest was obtained. COMPARISON: 08/10/2016 at 6:36 PM. FINDINGS: Interval placement of a right internal jugular central venous catheter, which terminates in the superior portion of the superior vena cava. Cardiomediastinal silhouette normal. Persistent prominence of pulmonary vasculature. Mildly asymmetric lung density, right greater than left, which could be positional or due to portable technique. No dedrick evidence of focal infiltrate or pulmonary edema. No large effusion or pneumothorax. Trace pleural effusions may be present. Osseous structures and upper abdomen normal. IMPRESSION: 1. Interval placement of a right internal jugular central venous catheter, which terminates in the superior portion of the superior vena cava. 2. Apparent pulmonary vascular congestion without evidence of pulmonary edema or focal infiltrate. 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 Have changed cefepime to ceftriaxone, clindamycin for 48 hours, and likely d/c of vancomycin in near future. Discussed with critical care. Will follow.
--- NOTE | 2016-08-12 10:57 | Gastroenterology Progress Note ---
Progress Note Date of Service: Aug 12, 2016 Subjective Pt evaluation today including: conversation w/ patient, physical exam, chart review, lab review, review of studies, review of inpatient medication list Pt awake, alert, sitting up in bed trying to have full liquid meal. He's shaky, c/o abd pain mostly on mid abd area. Stools loose, already had 3 episodes of diarrhea this AM. Denies any n/v. Review of Systems Constitutional: + fever, No chills Respiratory: No cough, No shortness of breath Cardiac: No chest pain Abdomen: + see HPI, + pain, + diarrhea, No nausea, No vomiting Medications Current Inpatient Medications Medications (Trade) Dose Ordered Sig/Lanie Route Start Time Stop Time Status Last Admin Dose Admin Ioversol (Optiray 320) 100 ml UD PRN IV 08/10/16 14:15 08/14/16 14:14 Heparin Sodium (Porcine) (Heparin Sq 5000 Unit/0.5ml) 5,000 unit Q8 SQ 08/10/16 22:00 09/09/16 21:59 08/12/16 05:20 5,000 UNIT Acetaminophen (Tylenol Tab) 650 mg Q4H PRN PO 08/10/16 17:45 09/09/16 17:44 08/12/16 08:13 650 MG Levalbuterol (Xopenex 1.25MG/ 3ML Neb) 1.25 mg Q6H PRN INH 08/10/16 17:45 09/09/16 17:44 Ondansetron HCl (Zofran Inj) 4 mg Q6H PRN IV 08/10/16 17:45 09/09/16 17:44 08/12/16 04:11 4 MG Salmeterol Xinafoate/ Fluticasone (Advair Diskus 500/50 Inh) 1 puff BID INH 08/10/16 21:00 09/09/16 20:59 08/12/16 08:12 1 PUFF Acetaminophen 100 ml @ 400 mls/hr Q8H PRN IV 08/10/16 19:00 09/09/16 18:59 08/11/16 19:54 400 MLS/HR Vancomycin HCl (Consult) 1 ea UD PRN N/A 08/10/16 19:00 09/09/16 18:59 Parenteral Electrolyte Solution 1,000 ml @ 75 mls/hr [id number] IV 08/10/16 19:30 09/09/16 19:29 08/12/16 03:30 150 MLS/HR Phenylephrine HCl 80 mg/Dextrose 508 ml @ 0 mls/hr Q0M PRN IV 08/10/16 23:45 09/09/16 23:44 08/11/16 20:52 63.8 MLS/HR Famotidine 20 mg/ Dextrose 102 ml @ 204 mls/hr Q12H IV 08/11/16 09:30 09/10/16 09:29 08/12/16 08:12 204 MLS/HR Ascorbic Acid 1500 mg/Sodium Chloride 103 ml @ 206 mls/hr Q6H IV 08/11/16 10:00 08/15/16 04:29 08/12/16 10:06 206 MLS/HR Thiamine HCl 200 mg/Sodium Chloride 52 ml @ 210 mls/hr Q12H IV 08/11/16 10:30 09/10/16 10:29 08/12/16 10:06 210 MLS/HR Clindamycin Phosphate 900 mg/ Dextrose 106 ml @ 100 mls/hr Q8H IV 08/11/16 13:00 08/13/16 12:59 08/12/16 04:17 100 MLS/HR Phenol (Chloraseptic 1.4% [place]) 2 sprays Q2H PRN MT 08/12/16 03:15 09/11/16 03:14 08/12/16 08:13 2 SPRAYS Heparin Sodium (Porcine) (Heparin 10 Unit/ ml 5 ml Flush) 5 ml PRN PRN FLUSH 08/12/16 04:45 09/11/16 04:44 Prochlorperazine Edisylate 10 mg/ Syringe 10 ml @ 5 mls/min Q6H PRN IV 08/12/16 08:30 09/11/16 08:29 08/12/16 10:04 5 MLS/MIN Dicyclomine HCl (Bentyl Cap) 10 mg TID PRN PO 08/12/16 09:30 09/11/16 09:29 Dicyclomine HCl (Bentyl Cap) 10 mg BID PO 08/12/16 21:00 09/11/16 20:59 Loperamide HCl (Imodium Cap) 2 mg TID PRN PO 08/12/16 09:30 09/11/16 09:29 Vancomycin HCl 1250 mg/Sodium Chloride 275 ml @ 125 mls/hr Q8H IV 08/12/16 16:00 08/19/16 23:59 Ceftriaxone Sodium 2000 mg/ Dextrose 70 ml @ 100 mls/hr Q24H IV 08/12/16 11:00 08/26/16 10:59 Objective Vital Signs Date Time Temp Pulse Resp B/P (MAP) Pulse Ox O2 Delivery O2 Flow Rate FiO2 08/12/16 10:30 89 22 78/38 (51) 91 08/12/16 10:00 91 23 92/44 (60) 92 08/12/16 09:30 102 28 117/58 (77) 95 08/12/16 08:00 37.4 120 24 124/52 (76) 96 Nasal Cannula 2.0 08/12/16 08:00 96 Nasal Cannula 2.0 08/12/16 06:01 83 20 94/50 (71) 92 108/57 08/12/16 05:01 96 30 98/41 (73) 92 108/60 08/12/16 04:16 105 24 82/56 (70) 94 119/54 08/12/16 04:16 105 24 82/56 (70) 94 119/54 08/12/16 04:01 38.7 109 23 104/56 (70) 95 120/50 08/12/16 04:00 Nasal Cannula 2.0 08/12/16 03:46 111 27 103/59 (75) 96 138/53 08/12/16 03:31 105 23 108/50 (66) 95 119/47 08/12/16 03:16 117 29 98/49 (68) 95 124/47 08/12/16 03:01 114 27 95/55 (68) 99 119/46 08/12/16 02:46 106 25 92/48 (65) 99 116/44 08/12/16 02:31 96 20 105/51 (66) 97 91/65 08/12/16 02:27 99 21 115/54 (71) 100 129/51 08/12/16 02:01 107 28 121/57 (79) 100 136/58 08/12/16 01:01 37.7 97 22 109/52 (76) 100 127/57 08/12/16 00:01 Nasal Cannula 2.0 08/12/16 00:01 91 18 107/52 (67) 100 116/49 08/11/16 23:01 100 21 101/53 (73) 99 113/54 08/11/16 22:01 95 25 106/50 (68) 98 110/51 08/11/16 21:21 101 23 101/50 (41) 98 46/38 08/11/16 21:01 94 24 98/45 (61) 95 96/45 08/11/16 20:01 37.6 110 24 96/51 (68) 100 111/51 08/11/16 20:00 Nasal Cannula 2.0 08/11/16 19:01 115 22 109/52 (83) 100 137/60 08/11/16 18:01 93 22 136/66 (89) 100 08/11/16 18:00 38.8 92 21 133/64 (87) 100 08/11/16 17:45 93 23 134/68 (90) 100 08/11/16 17:30 94 21 129/63 (85) 99 08/11/16 17:15 118 32 128/61 (83) 100 08/11/16 17:01 109 26 134/65 (88) 97 08/11/16 17:00 107 27 129/72 (91) 100 08/11/16 16:45 113 29 141/75 (97) 100 08/11/16 16:30 122 33 142/76 (98) 100 08/11/16 16:15 94 22 130/68 (88) 100 08/11/16 16:01 102 26 132/71 (91) 100 08/11/16 16:00 95 Nasal Cannula 2.0 08/11/16 16:00 38.5 97 23 129/69 (89) 99 08/11/16 14:00 38.4 94 23 129/64 (85) 100 Nasal Cannula 2.0 08/11/16 12:00 96 Nasal Cannula 2.0 08/11/16 12:00 38.0 93 24 123/66 (85) 100 Nasal Cannula 2.0 Physical Exam General Appearance: + mild distress Eyes: EOMI Neck: supple, no JVD, trachea midline Respiratory/Chest: no respiratory distress, no accessory muscle use, + decreased breath sounds Cardiovascular: regular rate, rhythm, no gallop, no murmur, + tachycardia Abdomen: + abnormal bowel sounds (hypoactive), + distended (mild), + tenderness (centralized) Extremities: normal inspection, no pedal edema, no calf tenderness Neurologic/Psych: alert, oriented x 3 Skin: + pertinent finding (flushed) Laboratory Results Last 24 Hours Test 08/11/16 11:30 08/11/16 12:19 08/11/16 15:25 08/11/16 18:11 Total Creatine Kinase 416 U/L Troponin I 0.546 ng/ml Monoscreen NEG Bedside Glucose 112 mg/dl 89 mg/dl Lactic Acid Level 2.1 mmol/L Magnesium Level 2.4 mg/dl Random Vancomycin Level 15.7 mcg/ml Test 08/11/16 20:02 08/11/16 20:30 08/11/16 21:24 08/12/16 04:05 Lactic Acid Level 2.0 mmol/L 1.9 mmol/L Troponin I 0.778 ng/ml 0.610 ng/ml Bedside Glucose (other) 157 mg/dl White Blood Count 30.57 K/uL Red Blood Count 4.62 M/uL Hemoglobin 13.4 g/dL Hematocrit 38.6 % Mean Corpuscular Volume 83.5 fL Mean Corpuscular Hemoglobin 29.0 pg Mean Corpuscular Hemoglobin Concent 34.7 g/dl Platelet Count 96 K/uL Mean Platelet Volume 9.8 fL Neutrophils (%) (Auto) 86.7 % Lymphocytes (%) (Auto) 1.8 % Monocytes (%) (Auto) 2.6 % Eosinophils (%) (Auto) 0.0 % Basophils (%) (Auto) 0.1 % Neutrophils # (Auto) 26.51 K/uL Lymphocytes # (Auto) 0.56 K/uL Monocytes # (Auto) 0.78 K/uL Eosinophils # (Auto) 0.00 K/uL Basophils # (Auto) 0.03 K/uL RDW Standard Deviation 39.4 fL RDW Coefficient of Variation 13.0 % Immature Granulocyte % (Auto) 8.8 % Immature Granulocyte # (Auto) 2.69 K/uL Toxic Vacuolation 2+ Dohle Bodies 1+ Echinocytes 3+ Sodium Level 142 mmol/L Potassium Level 3.7 mmol/L Chloride Level 112 mmol/L Carbon Dioxide Level 23 mmol/L Anion Gap 7.0 mmol/L Blood Urea Nitrogen 15 mg/dl Creatinine 1.60 mg/dl Est Creatinine Clear Calc Drug Dose 69.0 ml/min Estimated GFR () 66.0 Estimated GFR (Non- 57.0 BUN/Creatinine Ratio 9.6 Random Glucose 91 mg/dl Calcium Level 6.9 mg/dl Phosphorus Level 2.0 mg/dl Magnesium Level 2.5 mg/dl Test 08/12/16 05:27 08/12/16 05:47 Vancomycin Level Trough 4.3 mcg/ml Bedside Glucose (other) 113 mg/dl Assessment and Plan Impression Patient is a 30 year old male w n/v, diarrhea, abd pain, fever, chills. Previously treated for Strep Pharyngitis. Currently appears to be septic, WBC up to 51. LFTs mildly elevated (suspect may be from shock liver though usually this will cause a more dramatic raise on LFTs or med reaction from antibx). GPC growing from 1 out of 2 blood cx. Stool cx, urine cx, Cdiff negative. CT abd/ pelvis; u/s abd w/o acute GI pathology including hepatobiliary source of infections. ID workup pending. More alert today, able to sit up to try eating [place] diet. He's c/o loose stools still, and mid abd pain. Labs, imaging studies reviewed - leukocytosis improving now down to 30K, Cr improved to 1.6, + GPC blood cx. Currently on Cefepime, Vancomycin, Clindamycin Plan - ID following; ID and primary team for antibx management. - F/U ID workup - Avoid hepatotoxic meds, though may be difficult given may need multi antibx. - Consider blood smears and Heme/Onc consult given dramatic raise in WBC may not be from sepsis alone - Will add Imodium 2 tabs TID prn diarrhea; Dicyclomine 10mg BID - Will follow; but no new GI workup at this time. ATTESTATION: I have performed a history and physical examination of this patient and reviewed the electronic record. Specifically, on physical examination there is no abdominal tenderness at this time. I have discussed the case with JESUSITA Contreras. The above note reflects my findings, conclusions, and recommendations. Quincy Willingham MD
[2016-08-12] MEDS ORDERED: CEFTRIAXONE SOD INJ 2,000 MG in DEXTROSE 5% 50ML 50 ML IV SCH (11:00)
[2016-08-12] MEDS ORDERED: DIGOXIN IV 125 MCG in SYRINGE 9.5 ML IV ONE (16:00)
[2016-08-12] MEDS: VANCOMYCIN INJ 1,250 MG in SODIUM CHLORIDE 0.9% 250ML 250 ML IV SCH ×2 (16:19→23:43)
--- NOTE | 2016-08-12 17:22 | Progress Note ---
Internal Med Progress Note Date of Service: Aug 12, 2016. Provider Documentation: SUBJECTIVE: Patient is lying in his bed and is more awake but seems distressed & c/o abdominal pain. Denies any nausea/vomiting. "My stomach hurts." has been able to tolerate liquid food. OBJECTIVE: Vital Signs-as noted below Examination: General Appearance: WD/WN, + mild distress, Drowsy, lethargic. Head: normocephalic, atraumatic Eyes: normal inspection, PERRL, Sclera congested ENT: normal ENT inspection, hearing grossly normal Neck: supple, trachea midline Respiratory/Chest: lungs clear, normal breath sounds, no respiratory distress, no accessory muscle use Cardiovascular: regular rate, rhythm, no edema, no murmur, + tachycardia Abdomen/GI: normal bowel sounds, Tense, Diffuse tenderness, +flank tenderness. Back: normal inspection Extremities/Musculoskeletal: normal inspection, no pedal edema Neurologic/Psych: Lethargic, grossly no focal deficits. Complete neuro exam could not be performed Skin: normal color, warm/dry Lab data as noted below. ASSESSMENT & PLAN: SPEC #: [id number] GARRY: 08/10/16 STATUS: RES REQ #: [id number] RECD: 08/10/[address]: Francis Urbina , D.O. SOURCE: BLOOD ENTR: 08/10/[address] [facility] DR: Jeramie Hernandze M.D. SPDESC: No Doctor, Assigned Jeffrey Randle MD ORDERED: BLOOD CULTURE Procedure Result Verified Site BLD CULT Preliminary 08/11/16-1332 Organism 1 GRAM POSITIVE COCCI SENS SENSITIVITIES DEPENDENT ON FURTHER IDENTIFICATION Phoned Positive Blood Culture Gram Stain Report to DEVI GARCIA [facility] on 08/11/16 At 1204 By GUILLAUME. Results were verbalized back to GUILLAUME. Echocardiogram (08/11/2016) The left ventricle is normal in size. Left ventricular systolic function is normal. Ejection Fraction = 50-55%. The right ventricular systolic function is normal. No significant valvular pathology. CT Abdomen/Pelvis (08/10/2016): 1. Suboptimal examination without IV contrast. 2. There is nonspecific bilateral perinephric stranding and trace fluid. Correlate clinically and with laboratory findings/urinalysis for evidence of pyelonephritis or acute renal injury. No renal calculi are identified. 3. Liquid stool is noted in the colon. Correlate clinical for evidence of a diarrheal illness. No colonic wall thickening or pericolonic inflammation is seen. Sepsis causing Septic Shock: Likely Gram positive cocci as causative agent. Causing Metabolic Encephalopathy Patient presented with, N/V/D/abd pain: Hypotension, Tachycardia, tachypnea, elevated lactate levels Recent Step.Pharyngitis (Completed Azithromycin) -Unclear source of infection: GI/ infection ? Bacteremia -CT ABD: showed nonspecific bilateral perinephric stranding -Urine Tox screen: Negative -Start board spectrum antibiotics: Vanco and Cefepime & now on Cefepime & Clindamycin as per ID -Blood cultures preliminary results noted. Will follow up -UA:2+ occult blood -MRSA screen is negative -Stool studies including c.diff are negative -Aggressive IV fluids -Random cortisol level is normal -Shipping And Receiving Material Handler is following closely. Acute Kidney Injury:Due to above. -Continue IVF -Monitor GFR -Avoid any nephrotoxin if possible. Hypokalemia:Likely secondary to GI losses. Resolved now. -Continue monitoring ? Chest Pain:EKG: Sinus tachycardia, non specific ST changes QTC: prolonged -1st set of Troponin: Negative & now is trending upwards. Will continue following -Reviewed Echocardiogram Bronchial Asthma:Continue home inhalers DVT Prophylaxis:Heparin SQ Code Status:Full Code Disposition:Monitor in ICU Discussed the condition with parents at bedside and answered all their questions. Vital Signs: Date Time Temp Pulse Resp B/P (MAP) Pulse Ox O2 Delivery O2 Flow Rate FiO2 08/12/16 15:55 37.5 93 36 93 08/12/16 15:20 102 97 08/12/16 14:00 98 32 113/59 (77) 97 08/12/16 12:00 37.6 85 20 124/61 (82) 95 08/12/16 12:00 96 Nasal Cannula 2.0 08/12/16 10:30 89 22 78/38 (51) 91 08/12/16 10:00 91 23 92/44 (60) 92 08/12/16 09:30 102 28 117/58 (77) 95 08/12/16 08:00 37.4 120 24 124/52 (76) 96 Nasal Cannula 2.0 08/12/16 08:00 96 Nasal Cannula 2.0 08/12/16 06:01 83 20 94/50 (71) 92 108/57 08/12/16 05:01 96 30 98/41 (73) 92 108/60 08/12/16 04:16 105 24 82/56 (70) 94 119/54 08/12/16 04:16 105 24 82/56 (70) 94 119/54 08/12/16 04:01 38.7 109 23 104/56 (70) 95 120/50 08/12/16 04:00 Nasal Cannula 2.0 08/12/16 03:46 111 27 103/59 (75) 96 138/53 08/12/16 03:31 105 23 108/50 (66) 95 119/47 08/12/16 03:16 117 29 98/49 (68) 95 124/47 08/12/16 03:01 114 27 95/55 (68) 99 119/46 08/12/16 02:46 106 25 92/48 (65) 99 116/44 08/12/16 02:31 96 20 105/51 (66) 97 91/65 08/12/16 02:27 99 21 115/54 (71) 100 129/51 08/12/16 02:01 107 28 121/57 (79) 100 136/58 08/12/16 01:01 37.7 97 22 109/52 (76) 100 127/57 08/12/16 00:01 Nasal Cannula 2.0 08/12/16 00:01 91 18 107/52 (67) 100 116/49 08/11/16 23:01 100 21 101/53 (73) 99 113/54 08/11/16 22:01 95 25 106/50 (68) 98 110/51 08/11/16 21:21 101 23 101/50 (41) 98 46/38 08/11/16 21:01 94 24 98/45 (61) 95 96/45 08/11/16 20:01 37.6 110 24 96/51 (68) 100 111/51 08/11/16 20:00 Nasal Cannula 2.0 08/11/16 19:01 115 22 109/52 (83) 100 137/60 08/11/16 18:01 93 22 136/66 (89) 100 08/11/16 18:00 38.8 92 21 133/64 (87) 100 08/11/16 17:45 93 23 134/68 (90) 100 08/11/16 17:30 94 21 129/63 (85) 99 Lab Results: Results Past 24 Hours Test 08/11/16 18:11 08/11/16 20:02 08/11/16 20:30 08/11/16 21:24 Range/Units Bedside Glucose 89 70-99 mg/dl Lactic Acid Level 2.0 0.4-2.0 mmol/L Troponin I 0.778 0-0.045 ng/ml Bedside Glucose (other) 157 70-99 mg/dl Test 08/12/16 04:05 08/12/16 05:27 08/12/16 05:47 Range/Units White Blood Count 30.57 4.8-10.8 K/uL Red Blood Count 4.62 4.7-6.1 M/uL Hemoglobin 13.4 14.0-18.0 g/dL Hematocrit 38.6 42-52 % Mean Corpuscular Volume 83.5 80-100 fL Mean Corpuscular Hemoglobin 29.0 25-34 pg Mean Corpuscular Hemoglobin Concent 34.7 32-36 g/dl Platelet Count 96 130-400 K/uL Mean Platelet Volume 9.8 7.4-10.4 fL Neutrophils (%) (Auto) 86.7 % Lymphocytes (%) (Auto) 1.8 % Monocytes (%) (Auto) 2.6 % Eosinophils (%) (Auto) 0.0 % Basophils (%) (Auto) 0.1 % Neutrophils # (Auto) 26.51 1.4-6.5 K/uL Lymphocytes # (Auto) 0.56 1.2-3.4 K/uL Monocytes # (Auto) 0.78 0.11-0.59 K/uL Eosinophils # (Auto) 0.00 0-0.5 K/uL Basophils # (Auto) 0.03 0-0.2 K/uL RDW Standard Deviation 39.4 36.4-46.3 fL RDW Coefficient of Variation 13.0 11.5-14.5 % Immature Granulocyte % (Auto) 8.8 % Immature Granulocyte # (Auto) 2.69 0.00-0.02 K/uL Toxic Vacuolation 2+ Dohle Bodies 1+ Echinocytes 3+ Sodium Level 142 136-145 mmol/L Potassium Level 3.7 3.5-5.1 mmol/L Chloride Level 112 98-107 mmol/L Carbon Dioxide Level 23 21-32 mmol/L Anion Gap 7.0 3-11 mmol/L Blood Urea Nitrogen 15 7-18 mg/dl Creatinine 1.60 0.60-1.40 mg/dl Est Creatinine Clear Calc Drug Dose 69.0 ml/min Estimated GFR () 66.0 Estimated GFR (Non- 57.0 BUN/Creatinine Ratio 9.6 10-20 Random Glucose 91 70-99 mg/dl Lactic Acid Level 1.9 0.4-2.0 mmol/L Calcium Level 6.9 8.5-10.1 mg/dl Phosphorus Level 2.0 2.5-4.9 mg/dl Magnesium Level 2.5 1.8-2.4 mg/dl Troponin I 0.610 0-0.045 ng/ml Vancomycin Level Trough 4.3 SEE COMMENT mcg/ml Bedside Glucose (other) 113 70-99 mg/dl
[2016-08-12] MEDS ORDERED: VANCOMYCIN INJ 1,250 MG in SODIUM CHLORIDE 0.9% 250ML 250 ML IV SCH (20:00)
[2016-08-12] MEDS: ACETAMINOPHEN IV 100 ML IV PRN (20:25)
[2016-08-12] MEDS: DICYCLOMINE HCL 10 MG CAP PO SCH (20:52)
[2016-08-13] VITALS (44 sets, daily range): BP systolic 94–158; BP diastolic 46–80; PULSE 71–106; TEMP 36.7–37.7; O2SAT 90–98
[2016-08-13] MEDS: CHLORASEPTIC 1.4% SOLN 180 ML BTL MT PRN (01:13)
[2016-08-13] MEDS: NORMOSOL R 1,000 ML IV SCH (02:38)
[2016-08-13] MEDS: ASCORBIC ACID INJ 1,500 MG in NSS 100 ML IV SCH (04:03)
[2016-08-13] MEDS: CLINDAMYCIN IV 900 MG in DEXTROSE 5% 100ML 100 ML IV SCH (05:13)
[2016-08-13] MEDS: HEPARIN SOD 5000 UNIT/0.5 ML CARP SQ SCH ×3 (05:59→21:30)
[2016-08-13] MEDS: ONDANSETRON INJ 2 MG/ML 2 ML VIAL IV PRN (06:03)
[2016-08-13 06:29] LABS: BUN/CREATININE RATIO 9.1 (10-20); CALCIUM 7.7 mg/dl (8.5-10.1); CREATININE 1.3 mg/dl (0.60-1.40); MAGNESIUM 2.2 mg/dl (1.8-2.4); POTASSIUM 3.9 mmol/L (3.5-5.1)
[2016-08-13 06:33] LABS: PHOSPHORUS 1.8 mg/dl (2.5-4.9)
[2016-08-13 06:35] LABS: HEMATOCRIT 36.2 % (42-52); MEAN CELL VOLUME 84.4 fL (80-100); MEAN CORPUSCULAR HEMOGLOBIN 28.9 pg (25-34); MEAN CORPUSCULAR HGB CONC 34.3 g/dl (32-36); MEAN PLATELET VOLUME 10.6 fL (7.4-10.4); PLATELET COUNT 73 K/uL (130-400); RED BLOOD COUNT 4.29 M/uL (4.7-6.1); WHITE BLOOD COUNT 16.24 K/uL (4.8-10.8)
[2016-08-13 06:37] LABS: BASO % 0.1 %; BASO ABS # 0.02 K/uL (0-0.2); COMPLETE YES; DOHLE BODIES 1+; ECHINOCYTES 2+; IG% 0.3 %; LYMPH % 8.1 %; LYMPH ABS # 1.32 K/uL (1.2-3.4); MONO % 1.5 %; VACUOLIZATION 1+
[2016-08-13 07:06] LABS: CHLAMYDIA TRACH RNA*** NOT DETECTED (NOT DETECTED); GC (NEIS GONORRHOEAE)RNA** NOT DETECTED (NOT DETECTED)
[2016-08-13] MEDS: VANCOMYCIN INJ 1,250 MG in SODIUM CHLORIDE 0.9% 250ML 250 ML IV SCH (08:02)
[2016-08-13] MEDS: CEFTRIAXONE SOD INJ 2,000 MG in DEXTROSE 5% 50ML 50 ML IV SCH ×2 (08:04→21:27)
[2016-08-13] MEDS: FLUTICASONE/SALMETEROL (ADVAIR) 500/50 INH 14 PUFF INH SCH ×2 (08:15→21:28)
[2016-08-13] MEDS: DICYCLOMINE HCL 10 MG CAP PO SCH ×2 (08:15→21:28)
[2016-08-13] MEDS: FAMOTIDINE IV INJ 20 MG in DEXTROSE 5% 100ML 100 ML IV SCH (08:15)
[2016-08-13] MEDS ORDERED: POT PHOSPHATE MONOBASIC W/ SOD TAB PO ONE (09:45)
--- NOTE | 2016-08-13 09:45 | Critical Care Progress Note ---
Critical Care Progress Note Date of Service Aug 13, 2016. ICU Day ICU Day Number: [address] Urbina Subjective Feels significantly improved compared to yesterday. Concerned he may need an IV in his neck for intermediate accountant antibiotics. Answered questions and explained IV vs. oral with likely be made in consult with Dr. Palumbo. Objective General Appearance: Uncomfortable Head: normocephalic, atraumatic Eyes: sclerae injected Respiratory: Scattered rhonchi Cardiovasular: no M/G/R, irregular rate (tachycardia) Abdomen: no masses, epigastric TTP, RUQ TTP, LUQ TTP, RLQ TTP, LLQ TTP, hyperactive bowel sounds Back: normal inspection, no midline tenderness Neuro: alert, oriented x 3 Current SOFA Score SOFA Score Response (Comments) Value Platelets (x10) < 100 2 Bilirubin (mg/dL) < 1.2 0 Alejandra Coma Score 15 0 Level of Hypotension No Hypotension 0 Creatinine (mg/dL) 1.2 - 1.9 1 Total 3 Previous SOFA Scores 4 08/10/2016, 6 08/11/2016, 7 08/12/2016, Assessment & Plan Neuro: Fever * Tylenol converted to by mouth Resp: Supplemental oxygen when necessary CV: Sinus tachycardia, hypotension * Off phenylephrine infusion * Echocardiogram completed, no significant valvulopathy * Troponins decreasing * Hemodynamically stable Fluids/Renal: Advance to liquids diet * Decreasing IVF * Full liquid diet due to stable in decreasing vasoactive medication requirements Acute kidney injury * Significant improvement in creatinine * Discontinue fluids * Renal ultrasound reviewed * Urine eosinophils ordered ID: Sepsis: Beta hemolytic alpha strep * Ceftriaxone 2 g twice a day * Vancomycin discontinuing today * Clindamycin 900 mg every 8 hours for antitoxin effect, completing today * Stool culture: Negative C. difficile negative * Sent fungal blood culture: Pending * Viral considerations: hepatitis B surface antigen negative, hepatitis C antibody negative, HIV: Negative, influenza negative * Lyme titers: Negative * Will consider CT scan of neck for possible phlegmon if no significant improvement in clinical condition * Given vancomycin today and creatinine clearance 69, will attempt to avoid IV contrast today GI/Nutrition: Transaminitis * Likely secondary to shock liver * GI consultation for further evaluation and possible GI sources of infection Converted diet to liquids, given stable vasoactive medication requirements Heme: Heparin 5000 units every 8 hours DVT prophylaxis * Leukemoid reaction * Improving * Anemia * Likely multifactorial, no obvious blood loss * Thrombocytopenia * Hit score 2, likely secondary to sepsis, this will send PF4 antibodies, highly likely that the thrombocytopenia is related to sepsis * Continue with heparin prophylaxis given poor renal function Endocrine: Accu-Cheks, glucose within acceptable limits at this time * Cortisol: 26 unlikely to be adrenal insufficiency * Thyroid studies within normal limits, excludes thyroid storm Vascular access: Right internal jugular triple-lumen placed 08/10/2016 Right radial arterial line placed 08/10/2016, discontinue today Activity: Ambulate about the halls Stable for downgraded out of ICU Consults & Procedures Consultants: Gastroenterology Infectious disease Procedures: Right internal jugular triple lumen central venous catheter: 08/10/2016 Right radial arterial line 08/10/2016 Limited bedside echo cardiogram 08/10/2016 Data Medications: Current Inpatient Medications Medications (Trade) Dose Ordered Sig/Lanie Route Start Time Stop Time Status Last Admin Dose Admin Ioversol (Optiray 320) 100 ml UD PRN IV 08/10/16 14:15 08/14/16 14:14 Heparin Sodium (Porcine) (Heparin Sq 5000 Unit/0.5ml) 5,000 unit Q8 SQ 08/10/16 22:00 09/09/16 21:59 08/12/16 22:00 5,000 UNIT Acetaminophen (Tylenol Tab) 650 mg Q4H PRN PO 08/10/16 17:45 09/09/16 17:44 08/12/16 14:01 650 MG Levalbuterol (Xopenex 1.25MG/ 3ML Neb) 1.25 mg Q6H PRN INH 08/10/16 17:45 09/09/16 17:44 Ondansetron HCl (Zofran Inj) 4 mg Q6H PRN IV 08/10/16 17:45 09/09/16 17:44 08/13/16 06:03 4 MG Salmeterol Xinafoate/ Fluticasone (Advair Diskus 500/50 Inh) 1 puff BID INH 08/10/16 21:00 09/09/16 20:59 08/13/16 08:15 1 PUFF Acetaminophen 100 ml @ 400 mls/hr Q8H PRN IV 08/10/16 19:00 09/09/16 18:59 08/12/16 20:25 400 MLS/HR Vancomycin HCl (Consult) 1 ea UD PRN N/A 08/10/16 19:00 09/09/16 18:59 Parenteral Electrolyte Solution 1,000 ml @ 75 mls/hr [id number] IV 08/10/16 19:30 09/09/16 19:29 08/13/16 02:38 75 MLS/HR Famotidine 20 mg/ Dextrose 102 ml @ 204 mls/hr Q12H IV 08/11/16 09:30 09/10/16 09:29 08/13/16 08:15 204 MLS/HR Ascorbic Acid 1500 mg/Sodium Chloride 103 ml @ 206 mls/hr Q6H IV 08/11/16 10:00 08/15/16 04:29 08/13/16 04:03 206 MLS/HR Thiamine HCl 200 mg/Sodium Chloride 52 ml @ 210 mls/hr Q12H IV 08/11/16 10:30 09/10/16 10:29 08/12/16 22:04 210 MLS/HR Clindamycin Phosphate 900 mg/ Dextrose 106 ml @ 100 mls/hr Q8H IV 08/11/16 13:00 08/13/16 12:59 08/13/16 05:13 100 MLS/HR Phenol (Chloraseptic 1.4% Bradford) 2 sprays Q2H PRN MT 08/12/16 03:15 09/11/16 03:14 08/13/16 01:13 2 SPRAYS Heparin Sodium (Porcine) (Heparin 10 Unit/ ml 5 ml Flush) 5 ml PRN PRN FLUSH 08/12/16 04:45 09/11/16 04:44 Prochlorperazine Edisylate 10 mg/ Syringe 10 ml @ 5 mls/min Q6H PRN IV 08/12/16 08:30 09/11/16 08:29 08/12/16 17:48 5 MLS/MIN Dicyclomine HCl (Bentyl Cap) 10 mg TID PRN PO 08/12/16 09:30 09/11/16 09:29 Dicyclomine HCl (Bentyl Cap) 10 mg BID PO 08/12/16 21:00 09/11/16 20:59 08/13/16 08:15 10 MG Loperamide HCl (Imodium Cap) 2 mg TID PRN PO 08/12/16 09:30 09/11/16 09:29 08/13/16 02:15 2 MG Vancomycin HCl 1250 mg/Sodium Chloride 275 ml @ 125 mls/hr Q8H IV 08/12/16 16:00 08/19/16 23:59 08/13/16 08:02 125 MLS/HR Ceftriaxone Sodium 2000 mg/ Dextrose 70 ml @ 100 mls/hr Q12H IV 08/13/16 08:00 08/27/16 07:59 08/13/16 08:04 100 MLS/HR Vital Signs: Date Time Temp Pulse Resp B/P (MAP) Pulse Ox O2 Delivery O2 Flow Rate FiO2 08/13/16 06:30 95 28 (77) 90 134/60 08/13/16 06:30 95 28 134/60 (84) 90 08/13/16 06:15 92 37 (86) 91 147/67 08/13/16 06:01 98 36 154/69 (97) 92 08/13/16 06:01 98 36 133/65 (89) 92 154/69 08/13/16 06:00 93 33 (90) 93 158/70 08/13/16 06:00 93 33 158/70 (99) 93 Room Air 08/13/16 05:45 106 38 (84) 93 137/65 08/13/16 05:30 100 34 (86) 92 144/67 08/13/16 05:30 100 34 144/67 (92) 92 08/13/16 05:15 89 30 (80) 91 130/63 08/13/16 05:00 88 29 (80) 90 129/63 08/13/16 05:00 88 29 129/63 (85) 90 08/13/16 04:45 102 25 (86) 92 146/66 08/13/16 04:30 90 24 125/61 (82) 91 08/13/16 04:30 90 24 (77) 91 125/61 08/13/16 04:15 87 26 (79) 92 132/62 08/13/16 04:01 90 28 118/65 (84) 92 136/66 08/13/16 04:01 90 28 136/66 (89) 92 08/13/16 04:00 84 33 (83) 92 137/65 08/13/16 04:00 92 Room Air 08/13/16 04:00 37.7 84 33 137/65 (89) 92 Room Air 08/13/16 03:45 89 33 (80) 93 126/63 08/13/16 03:30 83 26 133/64 (87) 92 08/13/16 03:30 83 26 (81) 92 133/64 08/13/16 03:15 87 29 (73) 92 118/56 08/13/16 03:00 85 25 (71) 92 115/55 08/13/16 03:00 85 25 115/55 (75) 92 08/13/16 02:30 84 32 (83) 92 125/66 08/13/16 02:30 84 32 125/66 (85) 92 08/13/16 02:15 90 30 (89) 93 133/70 08/13/16 02:01 88 42 148/79 (102) 93 Nasal Cannula 2.0 08/13/16 02:01 88 42 134/72 (99) 93 148/79 08/13/16 02:00 95 31 (101) 91 135/78 08/13/16 01:46 92 31 123/80 (87) 94 135/61 08/13/16 01:45 97 34 (92) 93 142/70 08/13/16 01:31 74 24 110/61 (85) 98 122/68 08/13/16 01:31 74 24 122/68 (86) 98 08/13/16 01:30 71 22 (78) 98 115/61 08/13/16 01:16 92 34 120/69 (92) 97 133/71 08/13/16 01:15 85 31 (90) 98 130/71 08/13/16 01:01 77 25 96/51 (66) 96 08/13/16 01:01 77 25 95/49 (65) 96 96/51 08/13/16 01:00 78 27 (63) 96 96/49 08/13/16 00:46 79 25 101/53 (64) 96 97/50 08/13/16 00:46 79 25 97/50 (66) 96 08/13/16 00:45 78 22 (62) 96 94/47 08/13/16 00:31 75 26 106/55 (65) 97 101/50 08/13/16 00:30 79 24 (66) 96 101/51 08/13/16 00:16 72 27 101/53 (74) 97 116/57 08/13/16 00:16 72 27 116/57 (76) 97 08/13/16 00:01 36.8 80 21 129/64 (85) 97 Nasal Cannula 2.0 08/13/16 00:01 36.8 80 21 118/70 (84) 97 129/64 08/12/16 23:59 98 Nasal Cannula 2.0 08/12/16 23:46 85 28 116/64 (81) 98 17 23:46 85 28 116/65 (81) 98 116/64 08/12/16 23:31 79 23 94/45 (61) 97 92/48 08/12/16 23:31 79 23 92/48 (63) 97 08/12/16 23:16 78 24 94/49 (64) 96 08/12/16 23:16 78 24 95/47 (62) 96 94/49 08/12/16 23:01 71 27 99/48 (65) 96 08/12/16 23:01 71 27 104/47 (62) 96 99/48 08/12/16 23:00 80 25 96/49 (65) 96 Nasal Cannula 2.0 08/12/16 23:00 80 25 (62) 96 96/49 08/12/16 22:46 84 35 91/45 (64) 97 98/52 08/12/16 22:45 77 24 (62) 95 94/50 08/12/16 22:31 83 27 93/44 (54) 94 84/42 08/12/16 22:30 85 28 (52) 94 82/40 17 22:16 88 27 94/41 (56) 93 88/43 /07/24 22:15 86 26 (56) 93 88/43 08/12/16 22:01 87 27 105/51 (68) 94 107/53 08/12/16 22:00 88 26 (66) 93 106/51 08/12/16 21:46 98 30 106/52 (68) 94 104/53 08/12/16 21:45 93 35 (67) 91 104/53 17 21:31 104 30 116/59 (73) 87 114/57 7/6/17 21:30 101 38 (73) 89 110/57 7/6/17 21:16 104 21 111/55 (69) 90 105/54 7/6/17 21:15 98 37 (69) 88 105/55 7/6/17 21:01 103 29 106/59 (76) 90 119/58 7/6/17 21:00 102 34 (74) 90 120/57 7/6/17 20:34 107 42 (76) 88 131/57 7/6/17 20:30 108 35 118/73 (78) 90 131/58 7/6/17 20:19 111 42 (77) 92 127/59 7/6/17 20:16 113 17 103/56 (74) 94 106/60 7/6/17 20:04 110 23 (71) 92 98/58 7/6/17 20:00 92 Room Air 08/12/16 20:00 38.2 114 31 91/59 (64) 93 102/60 7/6/17 19:49 116 27 (76) 91 109/55 7/6/17 19:46 121 20 110/60 (73) 93 107/52 7/6/17 19:34 97 27 (74) 91 119/57 7/6/17 19:30 101 31 118/58 (69) 91 132/63 7/6/17 19:19 97 30 (80) 91 129/62 7/6/17 19:16 97 32 108/59 (77) 92 123/59 7/6/17 19:04 98 27 (75) 91 118/58 7/6/17 19:01 97 25 113/62 (77) 91 129/59 7/6/17 18:49 98 30 (81) 90 136/63 7/6/17 18:45 99 27 114/64 (78) 91 127/58 7/6/17 18:34 109 38 (76) 92 124/55 7/6/17 18:31 109 33 100/52 (74) 92 125/52 7/6/17 18:19 95 28 (70) 92 121/51 7/6/17 18:16 96 28 107/54 (67) 92 115/47 7/6/17 18:15 95 26 (67) 92 114/48 7/6/17 18:01 94 28 85/47 (62) 93 100/45 08/12/16 18:00 95 25 (61) 93 101/44 7 17:45 90 26 105/59 (78) 93 112/54 08/12/16 17:31 93 29 102/60 (77) 93 128/60 08/12/16 17:30 91 27 (74) 93 123/56 17 17:16 90 31 105/59 (75) 93 126/58 17 17:15 90 26 (74) 92 117/57 17 17:00 111 30 107/60 (73) 93 125/53 17 16:46 96 24 99/59 (71) 93 122/52 08/12/16 16:45 89 25 (71) 92 116/55 17 16:31 90 25 106/57 (70) 92 111/54 08/12/16 16:30 87 28 (69) 92 116/53 08/12/16 16:16 89 30 95/55 (68) 92 109/52 08/12/16 16:15 84 25 (67) 92 109/51 08/12/16 16:00 94 Room Air 08/12/16 16:00 37.6 102 24 106/54 (71) 94 Nasal Cannula 2.0 08/12/16 16:00 96 Room Air 08/12/16 16:00 37.6 102 22 124/52 (76) 94 Room Air 08/12/16 15:55 37.5 93 36 93 08/12/16 15:46 93 08/12/16 15:46 85 23 89/44 (59) 93 08/12/16 15:46 85 23 91/43 (57) 93 89/44 08/12/16 15:45 85 24 90/44 (59) 93 08/12/16 15:45 85 24 (58) 93 90/44 08/12/16 15:45 93 08/12/16 15:31 93 08/12/16 15:31 87 21 84/41 (55) 93 08/12/16 15:31 87 21 86/37 (54) 93 84/41 08/12/16 15:30 88 23 88/43 (58) 93 08/12/16 15:30 88 23 (56) 93 88/43 7/6/17 15:30 93 7/6/17 15:20 102 97 7/6/17 15:16 93 21 89/46 (60) 96 7/6/17 15:16 96 7/6/17 15:16 93 21 80/43 (60) 96 89/46 7/6/17 15:15 95 7/6/17 15:15 91 33 (57) 95 84/46 7/6/17 15:15 91 33 84/46 (59) 95 7/6/17 15:01 96 7/6/17 15:01 104 28 81/41 (56) 96 85/42 7/6/17 15:01 104 28 85/42 (56) 96 7/6/17 15:00 95 7/6/17 15:00 103 22 (57) 95 86/43 7/6/17 15:00 103 22 86/43 (57) 95 7/6/17 14:46 88 24 88/44 (59) 94 7/6/17 14:46 94 7/6/17 14:46 88 24 83/35 (57) 94 88/44 7/6/17 14:45 93 7/6/17 14:45 90 24 (57) 93 88/43 7/6/17 14:45 90 24 88/43 (58) 93 7/6/17 14:31 97 30 86/44 (62) 94 98/46 7/6/17 14:31 94 7/6/17 14:31 97 30 98/46 (63) 94 7/6/17 14:30 97 32 97/46 (63) 96 7/6/17 14:30 97 32 (62) 96 97/46 7/6/17 14:30 96 7/6/17 14:16 102 29 103/50 (67) 96 7/6/17 14:16 96 7/6/17 14:16 102 29 91/47 (68) 96 103/50 7/6/17 14:15 100 30 103/50 (67) 96 7/6/17 14:15 100 30 (67) 96 103/50 7/6/17 14:15 96 7/6/17 14:01 104 29 110/55 (73) 96 7/6/17 14:01 96 7/6/17 14:01 104 29 102/57 (72) 96 110/55 08/12/16 14:00 97 08/12/16 14:00 98 32 113/59 (77) 97 08/12/16 14:00 98 32 113/59 (77) 97 08/12/16 14:00 98 32 (76) 97 113/59 08/12/16 12:00 37.6 85 20 124/61 (82) 95 08/12/16 12:00 96 Nasal Cannula 2.0 08/12/16 10:30 89 22 78/38 (51) 91 08/12/16 10:00 91 23 92/44 (60) 92 08/12/16 09:30 102 28 117/58 (77) 95 Laboratory Results: Last 24 Hours Test 08/13/16 05:34 White Blood Count 16.24 K/uL Red Blood Count 4.29 M/uL Hemoglobin 12.4 g/dL Hematocrit 36.2 % Mean Corpuscular Volume 84.4 fL Mean Corpuscular Hemoglobin 28.9 pg Mean Corpuscular Hemoglobin Concent 34.3 g/dl Platelet Count 73 K/uL Mean Platelet Volume 10.6 fL Neutrophils (%) (Auto) 90.0 % Lymphocytes (%) (Auto) 8.1 % Monocytes (%) (Auto) 1.5 % Eosinophils (%) (Auto) 0.0 % Basophils (%) (Auto) 0.1 % Neutrophils # (Auto) 14.61 K/uL Lymphocytes # (Auto) 1.32 K/uL Monocytes # (Auto) 0.24 K/uL Eosinophils # (Auto) 0.00 K/uL Basophils # (Auto) 0.02 K/uL RDW Standard Deviation 40.1 fL RDW Coefficient of Variation 13.2 % Immature Granulocyte % (Auto) 0.3 % Immature Granulocyte # (Auto) 0.05 K/uL Toxic Vacuolation 1+ Dohle Bodies 1+ Echinocytes 2+ Sodium Level 143 mmol/L Potassium Level 3.9 mmol/L Chloride Level 113 mmol/L Carbon Dioxide Level 22 mmol/L Anion Gap 8.0 mmol/L Blood Urea Nitrogen 12 mg/dl Creatinine 1.30 mg/dl Est Creatinine Clear Calc Drug Dose 85.4 ml/min Estimated GFR () 84.9 Estimated GFR (Non- 73.2 BUN/Creatinine Ratio 9.1 Random Glucose 79 mg/dl Calcium Level 7.7 mg/dl Phosphorus Level 1.8 mg/dl Magnesium Level 2.2 mg/dl Total Bilirubin 0.8 mg/dl Direct Bilirubin 0.5 mg/dl Aspartate Amino Transf (AST/SGOT) 49 U/L Alanine Aminotransferase (ALT/SGPT) 40 U/L Alkaline Phosphatase 95 U/L Total Protein 4.6 gm/dl Albumin 2.2 gm/dl
--- NOTE | 2016-08-13 12:02 | Gastroenterology Progress Note ---
Progress Note Date of Service: Aug 13, 2016 Subjective Pt evaluation today including: conversation w/ patient, physical exam, chart review, lab review, review of inpatient medication list Pt tolerating [place] diet, said mid abd pain is improved. Only 1 BM last night, none this AM. Still febrile. Review of Systems Constitutional: + fever, No chills Respiratory: No cough, No shortness of breath Abdomen: + pain (improving), No nausea, No vomiting, No diarrhea Endo: + fatigue Medications Current Inpatient Medications Medications (Trade) Dose Ordered Sig/Lanie Route Start Time Stop Time Status Last Admin Dose Admin Ioversol (Optiray 320) 100 ml UD PRN IV 08/10/16 14:15 08/14/16 14:14 Heparin Sodium (Porcine) (Heparin Sq 5000 Unit/0.5ml) 5,000 unit Q8 SQ 08/10/16 22:00 09/09/16 21:59 08/12/16 22:00 5,000 UNIT Acetaminophen (Tylenol Tab) 650 mg Q4H PRN PO 08/10/16 17:45 09/09/16 17:44 08/12/16 14:01 650 MG Levalbuterol (Xopenex 1.25MG/ 3ML Neb) 1.25 mg Q6H PRN INH 08/10/16 17:45 09/09/16 17:44 Ondansetron HCl (Zofran Inj) 4 mg Q6H PRN IV 08/10/16 17:45 09/09/16 17:44 08/13/16 06:03 4 MG Salmeterol Xinafoate/ Fluticasone (Advair Diskus 500/50 Inh) 1 puff BID INH 08/10/16 21:00 09/09/16 20:59 08/13/16 08:15 1 PUFF Clindamycin Phosphate 900 mg/ Dextrose 106 ml @ 100 mls/hr Q8H IV 08/11/16 13:00 08/13/16 12:59 08/13/16 05:13 100 MLS/HR Phenol (Chloraseptic 1.4% Lynn) 2 sprays Q2H PRN MT 08/12/16 03:15 09/11/16 03:14 08/13/16 01:13 2 SPRAYS Heparin Sodium (Porcine) (Heparin 10 Unit/ ml 5 ml Flush) 5 ml PRN PRN FLUSH 08/12/16 04:45 09/11/16 04:44 Prochlorperazine Edisylate 10 mg/ Syringe 10 ml @ 5 mls/min Q6H PRN IV 08/12/16 08:30 09/11/16 08:29 08/12/16 17:48 5 MLS/MIN Dicyclomine HCl (Bentyl Cap) 10 mg TID PRN PO 08/12/16 09:30 09/11/16 09:29 Dicyclomine HCl (Bentyl Cap) 10 mg BID PO 08/12/16 21:00 09/11/16 20:59 08/13/16 08:15 10 MG Loperamide HCl (Imodium Cap) 2 mg TID PRN PO 08/12/16 09:30 09/11/16 09:29 08/13/16 02:15 2 MG Ceftriaxone Sodium 2000 mg/ Dextrose 70 ml @ 100 mls/hr Q12H IV 08/13/16 08:00 08/27/16 07:59 08/13/16 08:04 100 MLS/HR Objective Vital Signs Date Time Temp Pulse Resp B/P (MAP) Pulse Ox O2 Delivery O2 Flow Rate FiO2 08/13/16 10:00 95 30 98/46 (63) 90 08/13/16 08:00 37.3 96 30 136/60 (85) 96 Room Air 08/13/16 08:00 96 Room Air 08/13/16 06:30 95 28 (77) 90 134/60 08/13/16 06:30 95 28 134/60 (84) 90 08/13/16 06:15 92 37 (86) 91 147/67 08/13/16 06:01 98 36 154/69 (97) 92 08/13/16 06:01 98 36 133/65 (89) 92 154/69 08/13/16 06:00 93 33 (90) 93 158/70 08/13/16 06:00 93 33 158/70 (99) 93 Room Air 08/13/16 05:45 106 38 (84) 93 137/65 08/13/16 05:30 100 34 (86) 92 144/67 08/13/16 05:30 100 34 144/67 (92) 92 08/13/16 05:15 89 30 (80) 91 130/63 08/13/16 05:00 88 29 (80) 90 129/63 08/13/16 05:00 88 29 129/63 (85) 90 08/13/16 04:45 102 25 (86) 92 146/66 08/13/16 04:30 90 24 125/61 (82) 91 08/13/16 04:30 90 24 (77) 91 125/61 08/13/16 04:15 87 26 (79) 92 132/62 08/13/16 04:01 90 28 118/65 (84) 92 136/66 08/13/16 04:01 90 28 136/66 (89) 92 08/13/16 04:00 84 33 (83) 92 137/65 08/13/16 04:00 92 Room Air 08/13/16 04:00 37.7 84 33 137/65 (89) 92 Room Air 08/13/16 03:45 89 33 (80) 93 126/63 08/13/16 03:30 83 26 133/64 (87) 92 08/13/16 03:30 83 26 (81) 92 133/64 08/13/16 03:15 87 29 (73) 92 118/56 08/13/16 03:00 85 25 (71) 92 115/55 08/13/16 03:00 85 25 115/55 (75) 92 08/13/16 02:30 84 32 (83) 92 125/66 08/13/16 02:30 84 32 125/66 (85) 92 08/13/16 02:15 90 30 (89) 93 133/70 08/13/16 02:01 88 42 148/79 (102) 93 Nasal Cannula 2.0 08/13/16 02:01 88 42 134/72 (99) 93 148/79 08/13/16 02:00 95 31 (101) 91 135/78 08/13/16 01:46 92 31 123/80 (87) 94 135/61 08/13/16 01:45 97 34 (92) 93 142/70 08/13/16 01:31 74 24 110/61 (85) 98 122/68 08/13/16 01:31 74 24 122/68 (86) 98 08/13/16 01:30 71 22 (78) 98 115/61 08/13/16 01:16 92 34 120/69 (92) 97 133/71 08/13/16 01:15 85 31 (90) 98 130/71 08/13/16 01:01 77 25 96/51 (66) 96 08/13/16 01:01 77 25 95/49 (65) 96 96/51 08/13/16 01:00 78 27 (63) 96 96/49 08/13/16 00:46 79 25 101/53 (64) 96 97/50 08/13/16 00:46 79 25 97/50 (66) 96 08/13/16 00:45 78 22 (62) 96 94/47 08/13/16 00:31 75 26 106/55 (65) 97 101/50 08/13/16 00:30 79 24 (66) 96 101/51 08/13/16 00:16 72 27 101/53 (74) 97 116/57 08/13/16 00:16 72 27 116/57 (76) 97 08/13/16 00:01 36.8 80 21 129/64 (85) 97 Nasal Cannula 2.0 08/13/16 00:01 36.8 80 21 118/70 (84) 97 129/64 08/12/16 23:59 98 Nasal Cannula 2.0 08/12/16 23:46 85 28 116/64 (81) 98 08/12/16 23:46 85 28 116/65 (81) 98 116/64 08/12/16 23:31 79 23 94/45 (61) 97 92/48 08/12/16 23:31 79 23 92/48 (63) 97 08/12/16 23:16 78 24 94/49 (64) 96 08/12/16 23:16 78 24 95/47 (62) 96 94/49 08/12/16 23:01 71 27 99/48 (65) 96 08/12/16 23:01 71 27 104/47 (62) 96 99/48 08/12/16 23:00 80 25 96/49 (65) 96 Nasal Cannula 2.0 08/12/16 23:00 80 25 (62) 96 96/49 08/12/16 22:46 84 35 91/45 (64) 97 98/52 08/12/16 22:45 77 24 (62) 95 94/50 7/6/17 22:31 83 27 93/44 (54) 94 84/42 7/6/17 22:30 85 28 (52) 94 82/40 7/6/17 22:16 88 27 94/41 (56) 93 88/43 7/6/17 22:15 86 26 (56) 93 88/43 7/6/17 22:01 87 27 105/51 (68) 94 107/53 7/6/17 22:00 88 26 (66) 93 106/51 7/6/17 21:46 98 30 106/52 (68) 94 104/53 7/6/17 21:45 93 35 (67) 91 104/53 7/6/17 21:31 104 30 116/59 (73) 87 114/57 7/6/17 21:30 101 38 (73) 89 110/57 7/6/17 21:16 104 21 111/55 (69) 90 105/54 7/6/17 21:15 98 37 (69) 88 105/55 7/6/17 21:01 103 29 106/59 (76) 90 119/58 7/6/17 21:00 102 34 (74) 90 120/57 7/6/17 20:34 107 42 (76) 88 131/57 7/6/17 20:30 108 35 118/73 (78) 90 131/58 7/6/17 20:19 111 42 (77) 92 127/59 7/6/17 20:16 113 17 103/56 (74) 94 106/60 7/6/17 20:04 110 23 (71) 92 98/58 7/6/17 20:00 92 Room Air /6/17 20:00 38.2 114 31 91/59 (64) 93 102/60 7/6/17 19:49 116 27 (76) 91 109/55 7/6/17 19:46 121 20 110/60 (73) 93 107/52 7/6/17 19:34 97 27 (74) 91 119/57 7/6/17 19:30 101 31 118/58 (69) 91 132/63 7/6/17 19:19 97 30 (80) 91 129/62 7/6/17 19:16 97 32 108/59 (77) 92 123/59 7/6/17 19:04 98 27 (75) 91 118/58 7/6/17 19:01 97 25 113/62 (77) 91 129/59 7/6/17 18:49 98 30 (81) 90 136/63 7/6/17 18:45 99 27 114/64 (78) 91 127/58 7/6/17 18:34 109 38 (76) 92 124/55 7/6/17 18:31 109 33 100/52 (74) 92 125/52 7/6/17 18:19 95 28 (70) 92 121/51 7/6/17 18:16 96 28 107/54 (67) 92 115/47 7/6/17 18:15 95 26 (67) 92 114/48 7/6/17 18:01 94 28 85/47 (62) 93 100/45 7/6/17 18:00 95 25 (61) 93 101/44 7/6/17 17:45 90 26 105/59 (78) 93 112/54 7/6/17 17:31 93 29 102/60 (77) 93 128/60 7/6/17 17:30 91 27 (74) 93 123/56 7/6/17 17:16 90 31 105/59 (75) 93 126/58 7/6/17 17:15 90 26 (74) 92 117/57 7/6/17 17:00 111 30 107/60 (73) 93 125/53 7/6/17 16:46 96 24 99/59 (71) 93 122/52 7/6/17 16:45 89 25 (71) 92 116/55 7/6/17 16:31 90 25 106/57 (70) 92 111/54 7/6/17 16:30 87 28 (69) 92 116/53 7/6/17 16:16 89 30 95/55 (68) 92 109/52 7/6/17 16:15 84 25 (67) 92 109/51 7/6/17 16:00 94 Room Air 08/12/17 16:00 37.6 102 24 106/54 (71) 94 Nasal Cannula 2.0 08/12/16 16:00 96 Room Air 7//17 16:00 37.6 102 22 124/52 (76) 94 Room Air 7/6/17 15:55 37.5 93 36 93 7/6/17 15:46 93 7/6/17 15:46 85 23 89/44 (59) 93 7//17 15:46 85 23 91/43 (57) 93 89/44 7//17 15:45 85 24 90/44 (59) 93 7/17 15:45 85 24 (58) 93 90/44 7//17 15:45 93 7//17 15:31 93 7/6/17 15:31 87 21 84/41 (55) 93 7/6/17 15:31 87 21 86/37 (54) 93 84/41 7/6/17 15:30 88 23 88/43 (58) 93 7//17 15:30 88 23 (56) 93 88/43 7/17 15:30 93 7//17 15:20 102 97 7//17 15:16 93 21 89/46 (60) 96 7//17 15:16 96 7//17 15:16 93 21 80/43 (60) 96 89/46 7//17 15:15 95 7//17 15:15 91 33 (57) 95 84/46 7//17 15:15 91 33 84/46 (59) 95 7/6/17 15:01 96 //17 15:01 104 28 81/41 (56) 96 85/42 7//17 15:01 104 28 85/42 (56) 96 7//17 15:00 95 //17 15:00 103 22 (57) 95 86/43 7/6/17 15:00 103 22 86/43 (57) 95 7/6/17 14:46 88 24 88/44 (59) 94 7/6/17 14:46 94 7/6/17 14:46 88 24 83/35 (57) 94 88/44 7/6/17 14:45 93 7/6/17 14:45 90 24 (57) 93 88/43 7/6/17 14:45 90 24 88/43 (58) 93 7/6/17 14:31 97 30 86/44 (62) 94 98/46 7/6/17 14:31 94 7/6/17 14:31 97 30 98/46 (63) 94 08/12/16 14:30 97 32 97/46 (63) 96 08/12/16 14:30 97 32 (62) 96 97/46 08/12/16 14:30 96 08/12/16 14:16 102 29 103/50 (67) 96 08/12/16 14:16 96 08/12/16 14:16 102 29 91/47 (68) 96 103/50 08/12/16 14:15 100 30 103/50 (67) 96 08/12/16 14:15 100 30 (67) 96 103/50 08/12/16 14:15 96 08/12/16 14:01 104 29 110/55 (73) 96 08/12/16 14:01 96 08/12/16 14:01 104 29 102/57 (72) 96 110/55 08/12/16 14:00 97 08/12/16 14:00 98 32 113/59 (77) 97 08/12/16 14:00 98 32 113/59 (77) 97 08/12/16 14:00 98 32 (76) 97 113/59 08/12/16 12:00 37.6 85 20 124/61 (82) 95 08/12/16 12:00 96 Nasal Cannula 2.0 Physical Exam General Appearance: + mild distress Eyes: normal inspection, PERRL, EOMI Neck: supple, no JVD, trachea midline Respiratory/Chest: normal breath sounds, no respiratory distress, no accessory muscle use Cardiovascular: regular rate, rhythm, no gallop, no murmur Abdomen: normal bowel sounds, soft, + tenderness (mid abd pain ) Extremities: normal inspection, no pedal edema, no calf tenderness Neurologic/Psych: alert, normal mood/affect, oriented x 3 Skin: normal color, no jaundice, no rash Laboratory Results Last 24 Hours Test 08/13/16 05:34 White Blood Count 16.24 K/uL Red Blood Count 4.29 M/uL Hemoglobin 12.4 g/dL Hematocrit 36.2 % Mean Corpuscular Volume 84.4 fL Mean Corpuscular Hemoglobin 28.9 pg Mean Corpuscular Hemoglobin Concent 34.3 g/dl Platelet Count 73 K/uL Mean Platelet Volume 10.6 fL Neutrophils (%) (Auto) 90.0 % Lymphocytes (%) (Auto) 8.1 % Monocytes (%) (Auto) 1.5 % Eosinophils (%) (Auto) 0.0 % Basophils (%) (Auto) 0.1 % Neutrophils # (Auto) 14.61 K/uL Lymphocytes # (Auto) 1.32 K/uL Monocytes # (Auto) 0.24 K/uL Eosinophils # (Auto) 0.00 K/uL Basophils # (Auto) 0.02 K/uL RDW Standard Deviation 40.1 fL RDW Coefficient of Variation 13.2 % Immature Granulocyte % (Auto) 0.3 % Immature Granulocyte # (Auto) 0.05 K/uL Toxic Vacuolation 1+ Dohle Bodies 1+ Echinocytes 2+ Sodium Level 143 mmol/L Potassium Level 3.9 mmol/L Chloride Level 113 mmol/L Carbon Dioxide Level 22 mmol/L Anion Gap 8.0 mmol/L Blood Urea Nitrogen 12 mg/dl Creatinine 1.30 mg/dl Est Creatinine Clear Calc Drug Dose 85.4 ml/min Estimated GFR () 84.9 Estimated GFR (Non- 73.2 BUN/Creatinine Ratio 9.1 Random Glucose 79 mg/dl Calcium Level 7.7 mg/dl Phosphorus Level 1.8 mg/dl Magnesium Level 2.2 mg/dl Total Bilirubin 0.8 mg/dl Direct Bilirubin 0.5 mg/dl Aspartate Amino Transf (AST/SGOT) 49 U/L Alanine Aminotransferase (ALT/SGPT) 40 U/L Alkaline Phosphatase 95 U/L Total Protein 4.6 gm/dl Albumin 2.2 gm/dl Assessment and Plan Impression Patient is a 30 year old male w n/v, diarrhea, abd pain, fever, chills. Previously treated for Strep Pharyngitis. Currently appears to be septic, WBC up to 51. LFTs mildly elevated (suspect may be from shock liver though usually this will cause a more dramatic raise on LFTs or med reaction from antibx). GPC growing from 1 out of 2 blood cx. Stool cx, urine cx, Cdiff negative. CT abd/ pelvis; u/s abd w/o acute GI pathology including hepatobiliary source of infections. ID workup pending. More alert today, able to sit up to try eating [place] diet. Loose stools less frequent, abd pain improved. Labs, imaging studies reviewed - leukocytosis improving now down to 16K, Cr improved to 1.3, + Group A strep on blood cx. Currently on Ceftriaxone, Vancomycin. Plan - ID following; ID and primary team for antibx management. - F/U ID workup - Avoid hepatotoxic meds, though may be difficult given may need multi antibx. - Consider blood smears and Heme/Onc consult given dramatic raise in WBC may not be from sepsis alone - Continue Imodium 2 tabs TID prn diarrhea; Dicyclomine 10mg BID - Will follow peripherally; but no new GI workup at this time. ATTESTATION: I have performed a history and physical examination of this patient and reviewed the electronic record. Specifically, on physical examination there is no abdominal tenderness. I have discussed the case with JESUSITA Contreras. The above note reflects my findings, conclusions, and recommendations. Quincy Willingham MD
--- NOTE | 2016-08-13 12:06 | Infectious Disease Progress Nt ---
Progress Note Date of Service Aug 13, 2016. Subjective Pt evaluation today including: conversation w/ patient, physical exam, chart review, lab review, review of studies, conversation w/ oncology consultant, review of inpatient medication list Feeling somewhat better today, still with low-grade fever, abdominal pain and diarrhea improving. Hemodynamically stable overnight. Follow-up blood cultures are negative to date. All Other Systems: Reviewed and Negative Medications Current Inpatient Medications Medications (Trade) Dose Ordered Sig/Lanie Route Start Time Stop Time Status Last Admin Dose Admin Ioversol (Optiray 320) 100 ml UD PRN IV 08/10/16 14:15 08/14/16 14:14 Heparin Sodium (Porcine) (Heparin Sq 5000 Unit/0.5ml) 5,000 unit Q8 SQ 08/10/16 22:00 09/09/16 21:59 08/12/16 22:00 5,000 UNIT Acetaminophen (Tylenol Tab) 650 mg Q4H PRN PO 08/10/16 17:45 09/09/16 17:44 08/12/16 14:01 650 MG Levalbuterol (Xopenex 1.25MG/ 3ML Neb) 1.25 mg Q6H PRN INH 08/10/16 17:45 09/09/16 17:44 Ondansetron HCl (Zofran Inj) 4 mg Q6H PRN IV 08/10/16 17:45 09/09/16 17:44 08/13/16 06:03 4 MG Salmeterol Xinafoate/ Fluticasone (Advair Diskus 500/50 Inh) 1 puff BID INH 08/10/16 21:00 09/09/16 20:59 08/13/16 08:15 1 PUFF Clindamycin Phosphate 900 mg/ Dextrose 106 ml @ 100 mls/hr Q8H IV 08/11/16 13:00 08/13/16 12:59 08/13/16 05:13 100 MLS/HR Phenol (Chloraseptic 1.4% Rule) 2 sprays Q2H PRN MT 08/12/16 03:15 09/11/16 03:14 08/13/16 01:13 2 SPRAYS Heparin Sodium (Porcine) (Heparin 10 Unit/ ml 5 ml Flush) 5 ml PRN PRN FLUSH 08/12/16 04:45 09/11/16 04:44 Prochlorperazine Edisylate 10 mg/ Syringe 10 ml @ 5 mls/min Q6H PRN IV 08/12/16 08:30 09/11/16 08:29 08/12/16 17:48 5 MLS/MIN Dicyclomine HCl (Bentyl Cap) 10 mg TID PRN PO 08/12/16 09:30 09/11/16 09:29 Dicyclomine HCl (Bentyl Cap) 10 mg BID PO 08/12/16 21:00 09/11/16 20:59 08/13/16 08:15 10 MG Loperamide HCl (Imodium Cap) 2 mg TID PRN PO 08/12/16 09:30 09/11/16 09:29 08/13/16 02:15 2 MG Ceftriaxone Sodium 2000 mg/ Dextrose 70 ml @ 100 mls/hr Q12H IV 08/13/16 08:00 08/27/16 07:59 08/13/16 08:04 100 MLS/HR Objective Vital Signs Date Time Temp Pulse Resp B/P (MAP) Pulse Ox O2 Delivery O2 Flow Rate FiO2 08/13/16 10:00 95 30 98/46 (63) 90 08/13/16 08:00 37.3 96 30 136/60 (85) 96 Room Air 08/13/16 08:00 96 Room Air 08/13/16 06:30 95 28 (77) 90 134/60 08/13/16 06:30 95 28 134/60 (84) 90 08/13/16 06:15 92 37 (86) 91 147/67 08/13/16 06:01 98 36 154/69 (97) 92 08/13/16 06:01 98 36 133/65 (89) 92 154/69 08/13/16 06:00 93 33 (90) 93 158/70 08/13/16 06:00 93 33 158/70 (99) 93 Room Air 08/13/16 05:45 106 38 (84) 93 137/65 08/13/16 05:30 100 34 (86) 92 144/67 08/13/16 05:30 100 34 144/67 (92) 92 08/13/16 05:15 89 30 (80) 91 130/63 08/13/16 05:00 88 29 (80) 90 129/63 08/13/16 05:00 88 29 129/63 (85) 90 08/13/16 04:45 102 25 (86) 92 146/66 08/13/16 04:30 90 24 125/61 (82) 91 08/13/16 04:30 90 24 (77) 91 125/61 08/13/16 04:15 87 26 (79) 92 132/62 08/13/16 04:01 90 28 118/65 (84) 92 136/66 08/13/16 04:01 90 28 136/66 (89) 92 08/13/16 04:00 84 33 (83) 92 137/65 08/13/16 04:00 92 Room Air 08/13/16 04:00 37.7 84 33 137/65 (89) 92 Room Air 08/13/16 03:45 89 33 (80) 93 126/63 08/13/16 03:30 83 26 133/64 (87) 92 08/13/16 03:30 83 26 (81) 92 133/64 08/13/16 03:15 87 29 (73) 92 118/56 08/13/16 03:00 85 25 (71) 92 115/55 08/13/16 03:00 85 25 115/55 (75) 92 08/13/16 02:30 84 32 (83) 92 125/66 08/13/16 02:30 84 32 125/66 (85) 92 08/13/16 02:15 90 30 (89) 93 133/70 08/13/16 02:01 88 42 148/79 (102) 93 Nasal Cannula 2.0 08/13/16 02:01 88 42 134/72 (99) 93 148/79 08/13/16 02:00 95 31 (101) 91 135/78 08/13/16 01:46 92 31 123/80 (87) 94 135/61 08/13/16 01:45 97 34 (92) 93 142/70 08/13/16 01:31 74 24 110/61 (85) 98 122/68 08/13/16 01:31 74 24 122/68 (86) 98 08/13/16 01:30 71 22 (78) 98 115/61 08/13/16 01:16 92 34 120/69 (92) 97 133/71 08/13/16 01:15 85 31 (90) 98 130/71 08/13/16 01:01 77 25 96/51 (66) 96 08/13/16 01:01 77 25 95/49 (65) 96 96/51 08/13/16 01:00 78 27 (63) 96 96/49 08/13/16 00:46 79 25 101/53 (64) 96 97/50 08/13/16 00:46 79 25 97/50 (66) 96 08/13/16 00:45 78 22 (62) 96 94/47 08/13/16 00:31 75 26 106/55 (65) 97 101/50 08/13/16 00:30 79 24 (66) 96 101/51 08/13/16 00:16 72 27 101/53 (74) 97 116/57 08/13/16 00:16 72 27 116/57 (76) 97 08/13/16 00:01 36.8 80 21 129/64 (85) 97 Nasal Cannula 2.0 08/13/16 00:01 36.8 80 21 118/70 (84) 97 129/64 08/12/16 23:59 98 Nasal Cannula 2.0 08/12/16 23:46 85 28 116/64 (81) 98 08/12/16 23:46 85 28 116/65 (81) 98 116/64 08/12/16 23:31 79 23 94/45 (61) 97 92/48 08/12/16 23:31 79 23 92/48 (63) 97 08/12/16 23:16 78 24 94/49 (64) 96 08/12/16 23:16 78 24 95/47 (62) 96 94/49 08/12/16 23:01 71 27 99/48 (65) 96 08/12/16 23:01 71 27 104/47 (62) 96 99/48 08/12/16 23:00 80 25 96/49 (65) 96 Nasal Cannula 2.0 08/12/16 23:00 80 25 (62) 96 96/49 08/12/16 22:46 84 35 91/45 (64) 97 98/52 08/12/16 22:45 77 24 (62) 95 94/50 08/12/16 22:31 83 27 93/44 (54) 94 84/42 7/6/17 22:30 85 28 (52) 94 82/40 7/6/17 22:16 88 27 94/41 (56) 93 88/43 7/6/17 22:15 86 26 (56) 93 88/43 7/6/17 22:01 87 27 105/51 (68) 94 107/53 7/6/17 22:00 88 26 (66) 93 106/51 7/6/17 21:46 98 30 106/52 (68) 94 104/53 7/6/17 21:45 93 35 (67) 91 104/53 7/6/17 21:31 104 30 116/59 (73) 87 114/57 7/6/17 21:30 101 38 (73) 89 110/57 7/6/17 21:16 104 21 111/55 (69) 90 105/54 7/6/17 21:15 98 37 (69) 88 105/55 7/6/17 21:01 103 29 106/59 (76) 90 119/58 7/6/17 21:00 102 34 (74) 90 120/57 7/6/17 20:34 107 42 (76) 88 131/57 7/6/17 20:30 108 35 118/73 (78) 90 131/58 7/6/17 20:19 111 42 (77) 92 127/59 7/6/17 20:16 113 17 103/56 (74) 94 106/60 7/6/17 20:04 110 23 (71) 92 98/58 7/6/17 20:00 92 Room Air /6/17 20:00 38.2 114 31 91/59 (64) 93 102/60 7/6/17 19:49 116 27 (76) 91 109/55 7/6/17 19:46 121 20 110/60 (73) 93 107/52 7/6/17 19:34 97 27 (74) 91 119/57 7/6/17 19:30 101 31 118/58 (69) 91 132/63 7/6/17 19:19 97 30 (80) 91 129/62 7/6/17 19:16 97 32 108/59 (77) 92 123/59 7/6/17 19:04 98 27 (75) 91 118/58 7/6/17 19:01 97 25 113/62 (77) 91 129/59 7/6/17 18:49 98 30 (81) 90 136/63 7/6/17 18:45 99 27 114/64 (78) 91 127/58 7/6/17 18:34 109 38 (76) 92 124/55 7/6/17 18:31 109 33 100/52 (74) 92 125/52 7/6/17 18:19 95 28 (70) 92 121/51 7/6/17 18:16 96 28 107/54 (67) 92 115/47 7/6/17 18:15 95 26 (67) 92 114/48 7/6/17 18:01 94 28 85/47 (62) 93 100/45 7/6/17 18:00 95 25 (61) 93 101/44 7/6/17 17:45 90 26 105/59 (78) 93 112/54 7/6/17 17:31 93 29 102/60 (77) 93 128/60 7/6/17 17:30 91 27 (74) 93 123/56 7/6/17 17:16 90 31 105/59 (75) 93 126/58 7/6/17 17:15 90 26 (74) 92 117/57 7/6/17 17:00 111 30 107/60 (73) 93 125/53 7/6/17 16:46 96 24 99/59 (71) 93 122/52 7/6/17 16:45 89 25 (71) 92 116/55 7/6/17 16:31 90 25 106/57 (70) 92 111/54 7/6/17 16:30 87 28 (69) 92 116/53 7/6/17 16:16 89 30 95/55 (68) 92 109/52 7/6/17 16:15 84 25 (67) 92 109/51 7/6/17 16:00 94 Room Air 76/17 16:00 37.6 102 24 106/54 (71) 94 Nasal Cannula 2.0 17 16:00 96 Room Air 6/17 16:00 37.6 102 22 124/52 (76) 94 Room Air 76/17 15:55 37.5 93 36 93 7/6/17 15:46 93 7/6/17 15:46 85 23 89/44 (59) 93 7/6/17 15:46 85 23 91/43 (57) 93 89/44 7/6/17 15:45 85 24 90/44 (59) 93 7/6/17 15:45 85 24 (58) 93 90/44 7/6/17 15:45 93 7/6/17 15:31 93 7/6/17 15:31 87 21 84/41 (55) 93 7/6/17 15:31 87 21 86/37 (54) 93 84/41 7/6/17 15:30 88 23 88/43 (58) 93 7/6/17 15:30 88 23 (56) 93 88/43 7/6/17 15:30 93 7/6/17 15:20 102 97 7/6/17 15:16 93 21 89/46 (60) 96 7/6/17 15:16 96 7/6/17 15:16 93 21 80/43 (60) 96 89/46 7/6/17 15:15 95 7/6/17 15:15 91 33 (57) 95 84/46 7/6/17 15:15 91 33 84/46 (59) 95 7/6/17 15:01 96 7/6/17 15:01 104 28 81/41 (56) 96 85/42 7/6/17 15:01 104 28 85/42 (56) 96 7/6/17 15:00 95 7/6/17 15:00 103 22 (57) 95 86/43 7/6/17 15:00 103 22 86/43 (57) 95 7/6/17 14:46 88 24 88/44 (59) 94 7/6/17 14:46 94 7/6/17 14:46 88 24 83/35 (57) 94 88/44 7/6/17 14:45 93 7/6/17 14:45 90 24 (57) 93 88/43 7/6/17 14:45 90 24 88/43 (58) 93 7/6/17 14:31 97 30 86/44 (62) 94 98/46 7/6/17 14:31 94 7/6/17 14:31 97 30 98/46 (63) 94 7/6/17 14:30 97 32 97/46 (63) 96 08/12/16 14:30 97 32 (62) 96 97/46 08/12/16 14:30 96 08/12/16 14:16 102 29 103/50 (67) 96 08/12/16 14:16 96 08/12/16 14:16 102 29 91/47 (68) 96 103/50 08/12/16 14:15 100 30 103/50 (67) 96 08/12/16 14:15 100 30 (67) 96 103/50 08/12/16 14:15 96 08/12/16 14:01 104 29 110/55 (73) 96 08/12/16 14:01 96 08/12/16 14:01 104 29 102/57 (72) 96 110/55 08/12/16 14:00 97 08/12/16 14:00 98 32 113/59 (77) 97 08/12/16 14:00 98 32 113/59 (77) 97 08/12/16 14:00 98 32 (76) 97 113/59 Physical Exam General Appearance: WD/WN, no apparent distress Eyes: normal inspection, sclerae normal ENT: normal ENT inspection, + tonsillar exudate Neck: supple, no adenopathy, trachea midline Respiratory/Chest: chest non-tender, lungs clear, normal breath sounds, no respiratory distress Cardiovascular: regular rate, rhythm, no gallop, no murmur Abdomen: normal bowel sounds, soft, no organomegaly, + tenderness Extremities: non-tender, no calf tenderness Neurologic/Psychiatric: alert, oriented x 3 Skin: normal color, no rash Lymphatic: no adenopathy Laboratory Results RUN DATE: 08/13/16 [facility] LAB PAGE 1 RUN TIME: 705 Specimen Inquiry PATIENT: RACHEL ZIMMER LOC: [facility] U # : [id number] AGE/SX: 30/M ROOM: E107 REG : 08/10/[address]: Elian New MD : 1985 BED: 1 DIS : STATUS: ADM IN TLOC: SPEC #: [id number] GARRY: 08/11/16 STATUS: RES REQ #: [id number] RECD: 08/11/[address]: Francis Urbina , D.O. SOURCE: BLOOD ENTR: 08/11/16-1056 [facility] DR: Rush Palumbo MD [facility]: Isaías Ibanez MD No Doctor, Elian Davenport MD Vangala, Satish K., MD ORDERED: BLOOD CULTURE Procedure Result Verified Site [facility] Preliminary 08/13/16-704 NO GROWTH TO DATE. Last 24 Hours Test 08/13/16 05:34 White Blood Count 16.24 K/uL Red Blood Count 4.29 M/uL Hemoglobin 12.4 g/dL Hematocrit 36.2 % Mean Corpuscular Volume 84.4 fL Mean Corpuscular Hemoglobin 28.9 pg Mean Corpuscular Hemoglobin Concent 34.3 g/dl Platelet Count 73 K/uL Mean Platelet Volume 10.6 fL Neutrophils (%) (Auto) 90.0 % Lymphocytes (%) (Auto) 8.1 % Monocytes (%) (Auto) 1.5 % Eosinophils (%) (Auto) 0.0 % Basophils (%) (Auto) 0.1 % Neutrophils # (Auto) 14.61 K/uL Lymphocytes # (Auto) 1.32 K/uL Monocytes # (Auto) 0.24 K/uL Eosinophils # (Auto) 0.00 K/uL Basophils # (Auto) 0.02 K/uL RDW Standard Deviation 40.1 fL RDW Coefficient of Variation 13.2 % Immature Granulocyte % (Auto) 0.3 % Immature Granulocyte # (Auto) 0.05 K/uL Toxic Vacuolation 1+ Dohle Bodies 1+ Echinocytes 2+ Sodium Level 143 mmol/L Potassium Level 3.9 mmol/L Chloride Level 113 mmol/L Carbon Dioxide Level 22 mmol/L Anion Gap 8.0 mmol/L Blood Urea Nitrogen 12 mg/dl Creatinine 1.30 mg/dl Est Creatinine Clear Calc Drug Dose 85.4 ml/min Estimated GFR () 84.9 Estimated GFR (Non- 73.2 BUN/Creatinine Ratio 9.1 Random Glucose 79 mg/dl Calcium Level 7.7 mg/dl Phosphorus Level 1.8 mg/dl Magnesium Level 2.2 mg/dl Total Bilirubin 0.8 mg/dl Direct Bilirubin 0.5 mg/dl Aspartate Amino Transf (AST/SGOT) 49 U/L Alanine Aminotransferase (ALT/SGPT) 40 U/L Alkaline Phosphatase 95 U/L Total Protein 4.6 gm/dl Albumin 2.2 gm/dl Assessment and Plan 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 Patient will be continued on ceftriaxone, clindamycin to be completed today. Will likely require in the range of 10 days of IV antibiotics depending on clinical response.
[2016-08-13] MEDS ORDERED: VANCOMYCIN TROUGH SCH (15:30)
[2016-08-13] MEDS ORDERED: POTASSIUM PHOS 3 MMOL/1 ML INFUSION IV STA (17:05)
--- NOTE | 2016-08-13 17:09 | Progress Note ---
Internal Med Progress Note Date of Service: Aug 13, 2016. Provider Documentation: SUBJECTIVE: Patient is sitting in the chair and is more awake but seems distressed & c/o abdominal pain which is improving. Denies any nausea/vomiting. He has been able to tolerate food.Has loose bowel movements. OBJECTIVE: Vital Signs-as noted below Examination: General Appearance: WD/WN, + mild distress, Drowsy, lethargic. Head: normocephalic, atraumatic Eyes: normal inspection, PERRL, Sclera congested ENT: normal ENT inspection, hearing grossly normal Neck: supple, trachea midline Respiratory/Chest: lungs clear, normal breath sounds, no respiratory distress, no accessory muscle use Cardiovascular: regular rate, rhythm, no edema, no murmur, + tachycardia Abdomen/GI: normal bowel sounds, Tense, Diffuse tenderness, +flank tenderness. Back: normal inspection Extremities/Musculoskeletal: normal inspection, no pedal edema Neurologic/Psych: Lethargic, grossly no focal deficits. Complete neuro exam could not be performed Skin: normal color, warm/dry Lab data as noted below. ASSESSMENT & PLAN: PATIENT: RACHEL ZIMMER LOC: [facility] U # : [id number] AGE/SX: 30/M ROOM: E107 REG : 08/10/[address]: Elian New MD : 1985 BED: 1 DIS : STATUS: ADM IN TLOC: SPEC #: [id number] GARRY: 08/10/16 STATUS: COMP REQ #: [id number] RECD: 08/10/[address]: Jeramie Hernandez M.D. SOURCE: BLOOD ENTR: 08/10/[address]: No Doctor, Assigned SPDESC: Jeffrey Randle MD ORDERED: BLOOD CULTURE Procedure Result Verified Site BLD CULT Final 08/12/16-1231 Organism 1 GROUP A BETA STREP SENS NO SENSITIVITY TO FOLLOW Phoned Positive Blood Culture Gram St[place] Report [place] [facility] [place] At 0956 By GUILLAUME. Results were verbalized back to GUILLAUME. Echocardiogram (08/11/2016) The left ventricle is normal in size. Left ventricular systolic function is normal. Ejection Fraction = 50-55%. The right ventricular systolic function is normal. No significant valvular pathology. CT Abdomen/Pelvis (08/10/2016): 1. Suboptimal examination without IV contrast. 2. There is nonspecific bilateral perinephric stranding and trace fluid. Correlate clinically and with laboratory findings/urinalysis for evidence of pyelonephritis or acute renal injury. No renal calculi are identified. 3. Liquid stool is noted in the colon. Correlate clinical for evidence of a diarrheal illness. No colonic wall thickening or pericolonic inflammation is seen. Sepsis causing Septic Shock: Likely Gram positive cocci as causative agent. Causing Metabolic Encephalopathy Patient presented with, N/V/D/abd pain: Hypotension, Tachycardia, tachypnea, elevated lactate levels Recent Step.Pharyngitis (Completed Azithromycin) -Unclear source of infection: GI/ infection ? Bacteremia -CT ABD: showed nonspecific bilateral perinephric stranding -Urine Tox screen: Negative -Started board spectrum antibiotics: Vanco and Cefepime & now on Ceftriaxone. -Blood cultures Strep B. -UA:2+ occult blood -MRSA screen is negative -Stool studies including c.diff are negative -Aggressive IV fluids -Random cortisol level is normal -Timber Hewer is following closely. Acute Kidney Injury:Due to above.Resolving. -Continue IVF -Monitor GFR -Avoid any nephrotoxin if possible. Hypokalemia:Likely secondary to GI losses. Resolved now. -Continue monitoring ? Chest Pain:EKG: Sinus tachycardia, non specific ST changes QTC: prolonged -1st set of Troponin: Negative & now is trending upwards. Will continue following -Reviewed Echocardiogram Bronchial Asthma:Continue home inhalers DVT Prophylaxis:Heparin SQ Code Status:Full Code Disposition:Monitor in ICU Discussed the condition with patient & his at bedside and answered all their questions. Vital Signs: Date Time Temp Pulse Resp B/P (MAP) Pulse Ox O2 Delivery O2 Flow Rate FiO2 08/13/16 14:00 79 26 118/48 (71) 95 Room Air 08/13/16 12:00 37.3 103 21 106/47 (66) 95 Room Air 08/13/16 12:00 96 Room Air 08/13/16 10:00 95 30 98/46 (63) 90 08/13/16 08:00 37.3 96 30 136/60 (85) 96 Room Air 08/13/16 08:00 96 Room Air 08/13/16 06:30 95 28 (77) 90 134/60 08/13/16 06:30 95 28 134/60 (84) 90 08/13/16 06:15 92 37 (86) 91 147/67 08/13/16 06:01 98 36 154/69 (97) 92 08/13/16 06:01 98 36 133/65 (89) 92 154/69 08/13/16 06:00 93 33 (90) 93 158/70 08/13/16 06:00 93 33 158/70 (99) 93 Room Air 08/13/16 05:45 106 38 (84) 93 137/65 08/13/16 05:30 100 34 (86) 92 144/67 08/13/16 05:30 100 34 144/67 (92) 92 08/13/16 05:15 89 30 (80) 91 130/63 08/13/16 05:00 88 29 (80) 90 129/63 08/13/16 05:00 88 29 129/63 (85) 90 08/13/16 04:45 102 25 (86) 92 146/66 08/13/16 04:30 90 24 125/61 (82) 91 08/13/16 04:30 90 24 (77) 91 125/61 08/13/16 04:15 87 26 (79) 92 132/62 08/13/16 04:01 90 28 118/65 (84) 92 136/66 08/13/16 04:01 90 28 136/66 (89) 92 08/13/16 04:00 84 33 (83) 92 137/65 08/13/16 04:00 92 Room Air 08/13/16 04:00 37.7 84 33 137/65 (89) 92 Room Air 08/13/16 03:45 89 33 (80) 93 126/63 08/13/16 03:30 83 26 133/64 (87) 92 08/13/16 03:30 83 26 (81) 92 133/64 08/13/16 03:15 87 29 (73) 92 118/56 08/13/16 03:00 85 25 (71) 92 115/55 08/13/16 03:00 85 25 115/55 (75) 92 08/13/16 02:30 84 32 (83) 92 125/66 08/13/16 02:30 84 32 125/66 (85) 92 08/13/16 02:15 90 30 (89) 93 133/70 08/13/16 02:01 88 42 148/79 (102) 93 Nasal Cannula 2.0 08/13/16 02:01 88 42 134/72 (99) 93 148/79 08/13/16 02:00 95 31 (101) 91 135/78 08/13/16 01:46 92 31 123/80 (87) 94 135/61 08/13/16 01:45 97 34 (92) 93 142/70 08/13/16 01:31 74 24 110/61 (85) 98 122/68 08/13/16 01:31 74 24 122/68 (86) 98 08/13/16 01:30 71 22 (78) 98 115/61 08/13/16 01:16 92 34 120/69 (92) 97 133/71 08/13/16 01:15 85 31 (90) 98 130/71 08/13/16 01:01 77 25 96/51 (66) 96 08/13/16 01:01 77 25 95/49 (65) 96 96/51 08/13/16 01:00 78 27 (63) 96 96/49 08/13/16 00:46 79 25 101/53 (64) 96 97/50 08/13/16 00:46 79 25 97/50 (66) 96 08/13/16 00:45 78 22 (62) 96 94/47 08/13/16 00:31 75 26 106/55 (65) 97 101/50 08/13/16 00:30 79 24 (66) 96 101/51 08/13/16 00:16 72 27 101/53 (74) 97 116/57 08/13/16 00:16 72 27 116/57 (76) 97 08/13/16 00:01 36.8 80 21 129/64 (85) 97 Nasal Cannula 2.0 08/13/16 00:01 36.8 80 21 118/70 (84) 97 129/64 08/12/16 23:59 98 Nasal Cannula 2.0 08/12/16 23:46 85 28 116/64 (81) 98 08/12/16 23:46 85 28 116/65 (81) 98 116/64 08/12/16 23:31 79 23 94/45 (61) 97 92/48 08/12/16 23:31 79 23 92/48 (63) 97 08/12/16 23:16 78 24 94/49 (64) 96 08/12/16 23:16 78 24 95/47 (62) 96 94/49 08/12/16 23:01 71 27 99/48 (65) 96 08/12/16 23:01 71 27 104/47 (62) 96 99/48 08/12/16 23:00 80 25 96/49 (65) 96 Nasal Cannula 2.0 08/12/16 23:00 80 25 (62) 96 96/49 08/12/16 22:46 84 35 91/45 (64) 97 98/52 08/12/16 22:45 77 24 (62) 95 94/50 08/12/16 22:31 83 27 93/44 (54) 94 84/42 08/12/16 22:30 85 28 (52) 94 82/40 7/6/17 22:16 88 27 94/41 (56) 93 88/43 7/6/17 22:15 86 26 (56) 93 88/43 7/6/17 22:01 87 27 105/51 (68) 94 107/53 7/6/17 22:00 88 26 (66) 93 106/51 7/6/17 21:46 98 30 106/52 (68) 94 104/53 7/6/17 21:45 93 35 (67) 91 104/53 7/6/17 21:31 104 30 116/59 (73) 87 114/57 7/6/17 21:30 101 38 (73) 89 110/57 7/6/17 21:16 104 21 111/55 (69) 90 105/54 7/6/17 21:15 98 37 (69) 88 105/55 7/6/17 21:01 103 29 106/59 (76) 90 119/58 7/6/17 21:00 102 34 (74) 90 120/57 7/6/17 20:34 107 42 (76) 88 131/57 7/6/17 20:30 108 35 118/73 (78) 90 131/58 7/6/17 20:19 111 42 (77) 92 127/59 7/6/17 20:16 113 17 103/56 (74) 94 106/60 7/6/17 20:04 110 23 (71) 92 98/58 7/6/17 20:00 92 Room Air //17 20:00 38.2 114 31 91/59 (64) 93 102/60 7/6/17 19:49 116 27 (76) 91 109/55 7/6/17 19:46 121 20 110/60 (73) 93 107/52 7/6/17 19:34 97 27 (74) 91 119/57 7/6/17 19:30 101 31 118/58 (69) 91 132/63 7/6/17 19:19 97 30 (80) 91 129/62 7/6/17 19:16 97 32 108/59 (77) 92 123/59 7/6/17 19:04 98 27 (75) 91 118/58 7/6/17 19:01 97 25 113/62 (77) 91 129/59 7/6/17 18:49 98 30 (81) 90 136/63 08/12/16 18:45 99 27 114/64 (78) 91 127/58 08/12/16 18:34 109 38 (76) 92 124/55 08/12/16 18:31 109 33 100/52 (74) 92 125/52 08/12/16 18:19 95 28 (70) 92 121/51 08/12/16 18:16 96 28 107/54 (67) 92 115/47 08/12/16 18:15 95 26 (67) 92 114/48 08/12/16 18:01 94 28 85/47 (62) 93 100/45 08/12/16 18:00 95 25 (61) 93 101/44 08/12/16 17:45 90 26 105/59 (78) 93 112/54 08/12/16 17:31 93 29 102/60 (77) 93 128/60 08/12/16 17:30 91 27 (74) 93 123/56 08/12/16 17:16 90 31 105/59 (75) 93 126/58 08/12/16 17:15 90 26 (74) 92 117/57 Lab Results: Results Past 24 Hours Test 08/13/16 05:34 Range/Units White Blood Count 16.24 4.8-10.8 K/uL Red Blood Count 4.29 4.7-6.1 M/uL Hemoglobin 12.4 14.0-18.0 g/dL Hematocrit 36.2 42-52 % Mean Corpuscular Volume 84.4 80-100 fL Mean Corpuscular Hemoglobin 28.9 25-34 pg Mean Corpuscular Hemoglobin Concent 34.3 32-36 g/dl Platelet Count 73 130-400 K/uL Mean Platelet Volume 10.6 7.4-10.4 fL Neutrophils (%) (Auto) 90.0 % Lymphocytes (%) (Auto) 8.1 % Monocytes (%) (Auto) 1.5 % Eosinophils (%) (Auto) 0.0 % Basophils (%) (Auto) 0.1 % Neutrophils # (Auto) 14.61 1.4-6.5 K/uL Lymphocytes # (Auto) 1.32 1.2-3.4 K/uL Monocytes # (Auto) 0.24 0.11-0.59 K/uL Eosinophils # (Auto) 0.00 0-0.5 K/uL Basophils # (Auto) 0.02 0-0.2 K/uL RDW Standard Deviation 40.1 36.4-46.3 fL RDW Coefficient of Variation 13.2 11.5-14.5 % Immature Granulocyte % (Auto) 0.3 % Immature Granulocyte # (Auto) 0.05 0.00-0.02 K/uL Toxic Vacuolation 1+ Dohle Bodies 1+ Echinocytes 2+ Sodium Level 143 136-145 mmol/L Potassium Level 3.9 3.5-5.1 mmol/L Chloride Level 113 98-107 mmol/L Carbon Dioxide Level 22 21-32 mmol/L Anion Gap 8.0 3-11 mmol/L Blood Urea Nitrogen 12 7-18 mg/dl Creatinine 1.30 0.60-1.40 mg/dl Est Creatinine Clear Calc Drug Dose 85.4 ml/min Estimated GFR () 84.9 Estimated GFR (Non- 73.2 BUN/Creatinine Ratio 9.1 10-20 Random Glucose 79 70-99 mg/dl Calcium Level 7.7 8.5-10.1 mg/dl Phosphorus Level 1.8 2.5-4.9 mg/dl Magnesium Level 2.2 1.8-2.4 mg/dl Total Bilirubin 0.8 0.2-1 mg/dl Direct Bilirubin 0.5 0-0.2 mg/dl Aspartate Amino Transf (AST/SGOT) 49 15-37 U/L Alanine Aminotransferase (ALT/SGPT) 40 12-78 U/L Alkaline Phosphatase 95 45-117 U/L Total Protein 4.6 6.4-8.2 gm/dl Albumin 2.2 3.4-5.0 gm/dl
[2016-08-13] MEDS ORDERED: POTASSIUM PHOSPHATE INJ 9 MMOL in SODIUM CHLORIDE 0.9% 250ML 250 ML IV SCH (17:30)
[2016-08-14] MEDS: ACETAMINOPHEN 325 MG TAB PO PRN (00:01)
[2016-08-14] MEDS: HEPARIN SOD 5000 UNIT/0.5 ML CARP SQ SCH ×3 (06:41→21:33)
[2016-08-14] MEDS ORDERED: VANCOMYCIN TROUGH SCH (07:30)
[2016-08-14 07:38] VITALS: BP 105/66; PULSE 75; TEMP 36.7; O2SAT 96
[2016-08-14] MEDS: ONDANSETRON INJ 2 MG/ML 2 ML VIAL IV PRN ×3 (07:57→22:49)
[2016-08-14] MEDS: FLUTICASONE/SALMETEROL (ADVAIR) 500/50 INH 14 PUFF INH SCH ×2 (07:57→21:34)
[2016-08-14] MEDS: DICYCLOMINE HCL 10 MG CAP PO SCH ×2 (07:57→21:33)
[2016-08-14 08:35] LABS: ALB/GLOB RATIO 0.8 (0.9-2); ALKALINE PHOSPHATASE 135 U/L (45-117); ALT/SGPT 49 U/L (12-78); BLOOD UREA NITROGEN 12 mg/dl (7-18); BUN/CREATININE RATIO 10.8 (10-20); CALCIUM 8.4 mg/dl (8.5-10.1); CARBON DIOXIDE 21 mmol/L (21-32); CHLORIDE 112 mmol/L (98-107); GLUCOSE 74 mg/dl (70-99); SODIUM 142 mmol/L (136-145)
[2016-08-14 08:37] LABS: HEMATOCRIT 36.6 % (42-52); MEAN CELL VOLUME 85.3 fL (80-100); MEAN CORPUSCULAR HEMOGLOBIN 29.6 pg (25-34); RED BLOOD COUNT 4.29 M/uL (4.7-6.1)
[2016-08-14] MEDS: CEFTRIAXONE SOD INJ 2,000 MG in DEXTROSE 5% 50ML 50 ML IV SCH ×2 (08:44→21:24)
[2016-08-14 08:59] LABS: MEAN CORPUSCULAR HGB CONC 34.7 g/dl (32-36); MEAN PLATELET VOLUME 10.9 fL (7.4-10.4); PLATELET COUNT 52 K/uL (130-400)
[2016-08-14 09:00] LABS: COMPLETE YES; EOSINOPHIL % 0.9 %; LYMPH ABS # 1.25 K/uL (1.2-3.4); LYMPHOCYTE % 9.6 %; NEUTROPHILS % 87.8 %
[2016-08-14 09:45] LABS: POTASSIUM 3.5 mmol/L (3.5-5.1)
[2016-08-14 10:01] LABS: MAGNESIUM 1.8 mg/dl (1.8-2.4)
--- NOTE | 2016-08-14 12:59 | Progress Note ---
Internal Med Progress Note Date of Service: Aug 14, 2016. Provider Documentation: SUBJECTIVE: Patient is sitting in the chair and is more awake but seems distressed & c/o abdominal pain which is improving. Denies any nausea/vomiting. He has been able to tolerate food.Has intermittent loose bowel movements. Continues to feel weak.Remains afebrile. OBJECTIVE: Vital Signs-as noted below Examination: General Appearance: WD/WN, + mild distress, Drowsy, lethargic. Head: normocephalic, atraumatic Eyes: normal inspection, PERRL, Sclera congested ENT: normal ENT inspection, hearing grossly normal Neck: supple, trachea midline Respiratory/Chest: lungs clear, normal breath sounds, no respiratory distress, no accessory muscle use Cardiovascular: regular rate, rhythm, no edema, no murmur, + tachycardia Abdomen/GI: normal bowel sounds, Tense, Diffuse tenderness, +flank tenderness. Back: normal inspection Extremities/Musculoskeletal: normal inspection, no pedal edema Neurologic/Psych: Lethargic, grossly no focal deficits. Complete neuro exam could not be performed Skin: normal color, warm/dry Lab data as noted below. ASSESSMENT & PLAN: PATIENT: RACHEL ZIMMER [facility] # : [id number] AGE/SX: 30/M ROOM: E107 REG : 08/10/[address]: Elian New MD : 1985 BED: 1 DIS : STATUS: ADM IN TLOC: SPEC #: [id number] GARRY: 08/10/16 STATUS: COMP REQ #: [id number] RECD: 08/10/[address]: Jeramie Hernandez M.D. SOURCE: BLOOD ENTR: 08/10/[address]: No Doctor, Assigned SPDESC: Jeffrey Randle MD ORDERED: BLOOD CULTURE Procedure Result Verified Site BLD CULT Final 08/12/16-1231 Organism 1 GROUP A BETA STREP SENS NO SENSITIVITY TO FOLLOW Phoned Positive Blood Culture Gram [place] [facility] [place] At 0956 By GUILLAUME. Results were verbalized back to GUILLAUME. Echocardiogram (08/11/2016) The left ventricle is normal in size. Left ventricular systolic function is normal. Ejection Fraction = 50-55%. The right ventricular systolic function is normal. No significant valvular pathology. CT Abdomen/Pelvis (08/10/2016): 1. Suboptimal examination without IV contrast. 2. There is nonspecific bilateral perinephric stranding and trace fluid. Correlate clinically and with laboratory findings/urinalysis for evidence of pyelonephritis or acute renal injury. No renal calculi are identified. 3. Liquid stool is noted in the colon. Correlate clinical for evidence of a diarrheal illness. No colonic wall thickening or pericolonic inflammation is seen. Sepsis causing Septic Shock: Likely Gram positive cocci as causative agent. Causing Metabolic Encephalopathy Patient presented with, N/V/D/abd pain: Hypotension, Tachycardia, tachypnea, elevated lactate levels Recent Step.Pharyngitis (Completed Azithromycin) -Unclear source of infection: GI/ infection ? Bacteremia -CT ABD: showed nonspecific bilateral perinephric stranding -Urine Tox screen: Negative -Started board spectrum antibiotics: Vanco and Cefepime & now on Ceftriaxone. -Blood cultures Strep B. -UA:2+ occult blood -MRSA screen is negative -Stool studies including c.diff are negative -Aggressive IV fluids -Random cortisol level is normal -Head Miller is following closely. Acute Kidney Injury:Due to above.Resolved and is back to normal. -Encouraged to drink more fluids. -Monitor GFR -Avoid any nephrotoxin if possible. Hypokalemia:Likely secondary to GI losses. Resolved now. -Continue monitoring ? Chest Pain:EKG: Sinus tachycardia, non specific ST changes QTC: prolonged -1st set of Troponin: Negative & now is trending upwards. Will continue following -Reviewed Echocardiogram Bronchial Asthma:Continue home inhalers DVT Prophylaxis:Heparin SQ Code Status:Full Code Disposition:Monitor in ICU Discussed the condition with patient at bedside and answered all the questions. Vital Signs: Date Time Temp Pulse Resp B/P (MAP) Pulse Ox O2 Delivery O2 Flow Rate FiO2 08/14/16 08:00 Room Air 08/14/16 07:38 36.7 75 18 105/66 (79) 96 08/14/16 00:00 Room Air 08/13/16 23:54 37.0 79 22 106/66 (79) 94 Room Air 08/13/16 19:04 36.7 87 20 95/62 (73) 98 Room Air 08/13/16 18:16 37.3 100 26 97 08/13/16 16:00 97 Room Air 08/13/16 16:00 37.3 100 26 98/59 (72) 97 Room Air 08/13/16 14:00 79 26 118/48 (71) 95 Room Air Lab Results: Results Past 24 Hours Test 08/14/16 06:56 08/14/16 08:22 08/14/16 09:09 Range/Units Sodium Level 142 136-145 mmol/L Potassium Level 3.5 3.5-5.1 mmol/L Chloride Level 112 98-107 mmol/L Carbon Dioxide Level 21 21-32 mmol/L Anion Gap 9.0 3-11 mmol/L Blood Urea Nitrogen 12 7-18 mg/dl Creatinine 1.10 0.60-1.40 mg/dl Est Creatinine Clear Calc Drug Dose 101.2 ml/min Estimated GFR () 103.9 Estimated GFR (Non- 89.6 BUN/Creatinine Ratio 10.8 10-20 Random Glucose 74 70-99 mg/dl Calcium Level 8.4 8.5-10.1 mg/dl Magnesium Level 1.8 1.8-2.4 mg/dl Total Bilirubin 0.7 0.2-1 mg/dl Aspartate Amino Transf (AST/SGOT) 67 15-37 U/L Alanine Aminotransferase (ALT/SGPT) 49 12-78 U/L Alkaline Phosphatase 135 45-117 U/L Total Protein 4.9 6.4-8.2 gm/dl Albumin 2.1 3.4-5.0 gm/dl Globulin 2.8 2.5-4.0 gm/dl Albumin/Globulin Ratio 0.8 0.9-2 White Blood Count 13.00 4.8-10.8 K/uL Red Blood Count 4.29 4.7-6.1 M/uL Hemoglobin 12.7 14.0-18.0 g/dL Hematocrit 36.6 42-52 % Mean Corpuscular Volume 85.3 80-100 fL Mean Corpuscular Hemoglobin 29.6 25-34 pg Mean Corpuscular Hemoglobin Concent 34.7 32-36 g/dl Platelet Count 52 130-400 K/uL Mean Platelet Volume 10.9 7.4-10.4 fL RDW Standard Deviation 41.8 36.4-46.3 fL RDW Coefficient of Variation 13.5 11.5-14.5 % Neutrophils % (Manual) 87.8 % Lymphocytes % (Manual) 9.6 % Monocytes % (Manual) 1.7 % Eosinophils % (Manual) 0.9 % Neutrophils # (Manual) 11.41 1.4-6.5 K/uL Total Absolute Neutrophils 11.41 1.4-6.5 K/uL Lymphocytes # (Manual) 1.25 1.2-3.4 K/uL Total Absolute Lymphocytes 1.25 1.2-3.4 K/uL Monocytes # (Manual) 0.22 0.11-0.59 K/uL Eosinophils # (Manual) 0.12 0-0.5 K/uL
[2016-08-14 15:00] VITALS: BP 106/68; PULSE 73; TEMP 36.8; O2SAT 97
[2016-08-14 22:13] LABS: DENGUE FEVER IgG AB 0.02; DENGUE FEVER IgM AB 0.41
[2016-08-14 23:25] VITALS: BP 104/65; PULSE 60; TEMP 37; O2SAT 95
[2016-08-15] MEDS: HEPARIN SOD 5000 UNIT/0.5 ML CARP SQ SCH (05:27)
[2016-08-15 07:33] VITALS: BP 111/69; PULSE 60; TEMP 36.9; O2SAT 96
[2016-08-15] MEDS: CEFTRIAXONE SOD INJ 2,000 MG in DEXTROSE 5% 50ML 50 ML IV SCH ×2 (08:24→20:09)
[2016-08-15] MEDS: DICYCLOMINE HCL 10 MG CAP PO SCH ×2 (08:24→20:09)
[2016-08-15] MEDS: FLUTICASONE/SALMETEROL (ADVAIR) 500/50 INH 14 PUFF INH SCH ×2 (08:24→20:09)
--- NOTE | 2016-08-15 13:22 | Progress Note ---
Internal Med Progress Note Date of Service: Aug 15, 2016. Provider Documentation: SUBJECTIVE: Patient is sitting in the chair and is more awake but seems distressed & c/o abdominal pain which is improving. Denies any nausea/vomiting. He has been able to tolerate food.Has intermittent loose bowel movements which is improving .has been able to ambulate with assistance.Continues to feel weak.Remains afebrile. OBJECTIVE: Vital Signs-as noted below Examination: General Appearance: WD/WN, + mild distress, Drowsy, lethargic. Head: normocephalic, atraumatic Eyes: normal inspection, PERRL, Sclera congested ENT: normal ENT inspection, hearing grossly normal Neck: supple, trachea midline Respiratory/Chest: lungs clear, normal breath sounds, no respiratory distress, no accessory muscle use Cardiovascular: regular rate, rhythm, no edema, no murmur, + tachycardia Abdomen/GI: normal bowel sounds, Tense, Diffuse tenderness, +flank tenderness. Back: normal inspection Extremities/Musculoskeletal: normal inspection, no pedal edema Neurologic/Psych: Lethargic, grossly no focal deficits. Complete neuro exam could not be performed Skin: normal color, warm/dry Lab data as noted below. ASSESSMENT & PLAN: PATIENT: RACHEL ZIMMER [facility] #: [id number] [facility] # : [id number] AGE/SX: 30/M ROOM: E107 REG : 08/10/[address]: Elian New MD : 1985 BED: 1 DIS : STATUS: ADM IN TLOC: SPEC #: [id number] GARRY: 08/10/16 STATUS: COMP REQ #: [id number] RECD: 08/10/[address]: Jeramie Hernandez M.D. SOURCE: BLOOD ENTR: 08/10/[address] [facility] [address]: No Doctor, Assigned [facility]: Jeffrey Randle MD ORDERED: BLOOD CULTURE Procedure Result Verified Site BLD CULT Final 08/12/16-1231 Organism 1 GROUP A BETA STREP SENS NO SENSITIVITY TO FOLLOW Phoned Positive Blood Culture Gram Stain Report to [facility] [place] on 08/11/16 At 0956 By GUILLAUME. Results were verbalized back to GUILLAUME. Echocardiogram (08/11/2016) The left ventricle is normal in size. Left ventricular systolic function is normal. Ejection Fraction = 50-55%. The right ventricular systolic function is normal. No significant valvular pathology. CT Abdomen/Pelvis (08/10/2016): 1. Suboptimal examination without IV contrast. 2. There is nonspecific bilateral perinephric stranding and trace fluid. Correlate clinically and with laboratory findings/urinalysis for evidence of pyelonephritis or acute renal injury. No renal calculi are identified. 3. Liquid stool is noted in the colon. Correlate clinical for evidence of a diarrheal illness. No colonic wall thickening or pericolonic inflammation is seen. Sepsis causing Septic Shock: Likely Gram positive cocci as causative agent. Causing Metabolic Encephalopathy Patient presented with, N/V/D/abd pain: Hypotension, Tachycardia, tachypnea, elevated lactate levels Recent Step.Pharyngitis (Completed Azithromycin) -Unclear source of infection: GI/ infection ? Bacteremia -CT ABD: showed nonspecific bilateral perinephric stranding -Urine Tox screen: Negative -Started board spectrum antibiotics: Vanco and Cefepime & now on Ceftriaxone.Total duration of antibiotics is 5 days. -Blood cultures Strep B. -UA:2+ occult blood -MRSA screen is negative -Stool studies including c.diff are negative -Aggressive IV fluids -Random cortisol level is normal Acute Kidney Injury:Due to above.Resolved and is back to normal. -Encouraged to drink more fluids. -Monitor GFR -Avoid any nephrotoxin if possible. Hypokalemia:Likely secondary to GI losses. Resolved now. -Continue monitoring ? Chest Pain:EKG: Sinus tachycardia, non specific ST changes. Resolved. QTC: prolonged -1st set of Troponin: Negative & now is trending upwards. Will continue following -Reviewed Echocardiogram Bronchial Asthma:Continue home inhalers DVT Prophylaxis:Heparin SQ Code Status:Full Code Disposition:Discharge once is clinically stable as well cleared by ID. Discussed the condition with patient at bedside and answered all the questions. Vital Signs: Date Time Temp Pulse Resp B/P (MAP) Pulse Ox O2 Delivery O2 Flow Rate FiO2 08/15/16 08:00 Room Air 08/15/16 07:33 36.9 60 18 111/69 (83) 96 08/15/16 00:00 Room Air 08/14/16 23:25 37.0 60 20 104/65 (78) 95 Room Air 08/14/16 20:00 Room Air 08/14/16 16:00 Room Air 08/14/16 15:00 36.8 73 18 106/68 (81) 97
[2016-08-15 14:51] VITALS: BP 99/63; PULSE 59; TEMP 36.8; O2SAT 95
[2016-08-15] MEDS: IBUPROFEN 600 MG TAB PO PRN (22:02)
[2016-08-16 00:18] VITALS: BP 106/64; PULSE 57; TEMP 36.9; O2SAT 95
[2016-08-16 06:43] LABS: HEMATOCRIT 40.4 % (42-52); MEAN CELL VOLUME 87.3 fL (80-100); MEAN CORPUSCULAR HEMOGLOBIN 29.6 pg (25-34); MEAN CORPUSCULAR HGB CONC 33.9 g/dl (32-36); PLATELET COUNT 84 K/uL (130-400); RED BLOOD COUNT 4.63 M/uL (4.7-6.1); WHITE BLOOD COUNT 8.63 K/uL (4.8-10.8)
[2016-08-16 07:08] LABS: BUN/CREATININE RATIO 14.6 (10-20); C-REACTIVE PROTEIN 3.28 mg/dl (0-0.29); CALCIUM 8.8 mg/dl (8.5-10.1); CREATININE 0.99 mg/dl (0.60-1.40); POTASSIUM 3.5 mmol/L (3.5-5.1)
[2016-08-16 07:11] LABS: ALB/GLOB RATIO 0.8 (0.9-2)
[2016-08-16 07:15] VITALS: BP 119/70; PULSE 51; TEMP 36.7; O2SAT 97
[2016-08-16] MEDS: FLUTICASONE/SALMETEROL (ADVAIR) 500/50 INH 14 PUFF INH SCH ×2 (07:30→20:34)
[2016-08-16] MEDS: CEFTRIAXONE SOD INJ 2,000 MG in DEXTROSE 5% 50ML 50 ML IV SCH (07:30)
[2016-08-16] MEDS: DICYCLOMINE HCL 10 MG CAP PO SCH ×2 (07:30→20:33)
[2016-08-16 07:53] LABS: COMPLETE YES; EOSINOPHIL % 3.6 %; LYMPH ABS # 4.08 K/uL (1.2-3.4); LYMPHOCYTE % 47.3 %; META ABS # 0.16 K/uL (0-0); METAMYELOCYTE % 1.8 %; MYELOCYTE % 2.7 %; NEUTROPHILS % 32.1 %
--- NOTE | 2016-08-16 11:58 | Progress Note ---
Internal Med Progress Note Date of Service: Aug 16, 2016. Provider Documentation: SUBJECTIVE: Patient is sitting in the chair and is more awake and alert. Feels stronger and comfortable today. Denies any nausea/vomiting. He has been able to tolerate food.Has intermittent loose bowel movements which is improving .He has been able to ambulate with assistance.Remains afebrile. denies any new change or complaint. OBJECTIVE: Vital Signs-as noted below Examination: General Appearance: WD/WN, + mild distress, Drowsy, lethargic. Head: normocephalic, atraumatic Eyes: normal inspection, PERRL, Sclera congested ENT: normal ENT inspection, hearing grossly normal Neck: supple, trachea midline Respiratory/Chest: lungs clear, normal breath sounds, no respiratory distress, no accessory muscle use Cardiovascular: regular rate, rhythm, no edema, no murmur, + tachycardia Abdomen/GI: normal bowel sounds, Tense, Diffuse tenderness, +flank tenderness. Back: normal inspection Extremities/Musculoskeletal: normal inspection, no pedal edema Neurologic/Psych: Lethargic, grossly no focal deficits. Complete neuro exam could not be performed Skin: normal color, warm/dry Lab data as noted below. ASSESSMENT & PLAN: PATIENT: RACHEL ZIMMER [facility] #: [id number] LOC: [facility] # : [id number] AGE/SX: 30/M ROOM: E107 REG : 08/10/[address]: Elian New MD : [id number] BED: 1 DIS : STATUS: ADM IN TLOC: SPEC #: [id number] GARRY: 08/10/16 STATUS: COMP REQ #: [id number] RECD: 08/10/[address]: Jeramie Hernandez M.D. SOURCE: BLOOD ENTR: 08/10/[address] [facility] [address]: No Doctor, Assigned [facility]: Jeffrey Randle MD ORDERED: BLOOD CULTURE Procedure Result Verified Site BLD CULT Final 08/12/16-1231 Organism 1 GROUP A BETA STREP SENS NO SENSITIVITY TO FOLLOW Phoned Positive Blood Culture Gram Stain Report [place] [facility] [place] 08[place]11[place] At 0956 By GUILLAUME. Results were verbalized back to GUILLAUME. Echocardiogram (08/11/2016) The left ventricle is normal in size. Left ventricular systolic function is normal. Ejection Fraction = 50-55%. The right ventricular systolic function is normal. No significant valvular pathology. CT Abdomen/Pelvis (08/10/2016): 1. Suboptimal examination without IV contrast. 2. There is nonspecific bilateral perinephric stranding and trace fluid. Correlate clinically and with laboratory findings/urinalysis for evidence of pyelonephritis or acute renal injury. No renal calculi are identified. 3. Liquid stool is noted in the colon. Correlate clinical for evidence of a diarrheal illness. No colonic wall thickening or pericolonic inflammation is seen. Sepsis causing Septic Shock: Likely Gram positive cocci as causative agent. Causing Metabolic Encephalopathy Patient presented with, N/V/D/abd pain: Hypotension, Tachycardia, tachypnea, elevated lactate levels Recent Step.Pharyngitis (Completed Azithromycin) -Unclear source of infection: GI/ infection ? Bacteremia -CT ABD: showed nonspecific bilateral perinephric stranding -Urine Tox screen: Negative -Started board spectrum antibiotics: Vanco and Cefepime & now on Ceftriaxone.Total duration of antibiotics is 6 days. Decreased Rocephin to 1.0 G daily after discussing with Dr. Palumbo. -Blood cultures Strep B. -UA:2+ occult blood -MRSA screen is negative -Stool studies including c.diff are negative -Aggressive IV fluids -Random cortisol level is normal Acute Kidney Injury:Due to above.Resolved and is back to normal. -Encouraged to drink more fluids. -Monitor GFR -Avoid any nephrotoxin if possible. Hypokalemia:Likely secondary to GI losses. Resolved now. -Continue monitoring ? Chest Pain:EKG: Sinus tachycardia, non specific ST changes. Resolved. QTC: prolonged -1st set of Troponin: Negative & now is trending upwards. Will continue following -Reviewed Echocardiogram Bronchial Asthma:Continue home inhalers DVT Prophylaxis:Heparin SQ Code Status:Full Code Disposition:Discharge once is clinically stable as well cleared by ID.Likely needs antibiotics for total 10 days Discussed the condition with patient at bedside and answered all the questions. Vital Signs: Date Time Temp Pulse Resp B/P (MAP) Pulse Ox O2 Delivery O2 Flow Rate FiO2 08/16/16 08:00 Room Air 08/16/16 07:15 36.7 51 20 119/70 (86) 97 Room Air 08/16/16 00:18 36.9 57 18 106/64 (78) 95 Room Air 08/15/16 23:59 Room Air 08/15/16 20:00 Room Air 08/15/16 16:00 Room Air 08/15/16 14:51 36.8 59 18 99/63 (75) 95 Lab Results: Results Past 24 Hours Test 08/16/16 06:02 Range/Units White Blood Count 8.63 4.8-10.8 K/uL Red Blood Count 4.63 4.7-6.1 M/uL Hemoglobin 13.7 14.0-18.0 g/dL Hematocrit 40.4 42-52 % Mean Corpuscular Volume 87.3 80-100 fL Mean Corpuscular Hemoglobin 29.6 25-34 pg Mean Corpuscular Hemoglobin Concent 33.9 32-36 g/dl Platelet Count 84 130-400 K/uL Mean Platelet Volume 12.0 7.4-10.4 fL RDW Standard Deviation 43.1 36.4-46.3 fL RDW Coefficient of Variation 13.5 11.5-14.5 % Neutrophils % (Manual) 32.1 % Lymphocytes % (Manual) 47.3 % Monocytes % (Manual) 12.5 % Eosinophils % (Manual) 3.6 % Metamyelocytes % 1.8 % Myelocytes % 2.7 % Neutrophils # (Manual) 2.77 1.4-6.5 K/uL Total Absolute Neutrophils 2.77 1.4-6.5 K/uL Lymphocytes # (Manual) 4.08 1.2-3.4 K/uL Total Absolute Lymphocytes 4.08 1.2-3.4 K/uL Monocytes # (Manual) 1.08 0.11-0.59 K/uL Eosinophils # (Manual) 0.31 0-0.5 K/uL Metamyelocytes # 0.16 0-0 K/uL Myelocytes # 0.23 0-0 K/uL Sodium Level 143 136-145 mmol/L Potassium Level 3.5 3.5-5.1 mmol/L Chloride Level 108 98-107 mmol/L Carbon Dioxide Level 27 21-32 mmol/L Anion Gap 8.0 3-11 mmol/L Blood Urea Nitrogen 15 7-18 mg/dl Creatinine 0.99 0.60-1.40 mg/dl Est Creatinine Clear Calc Drug Dose 112.4 ml/min Estimated GFR () 118.0 Estimated GFR (Non- 101.8 BUN/Creatinine Ratio 14.6 10-20 Random Glucose 78 70-99 mg/dl Calcium Level 8.8 8.5-10.1 mg/dl Total Bilirubin 0.6 0.2-1 mg/dl Aspartate Amino Transf (AST/SGOT) 55 15-37 U/L Alanine Aminotransferase (ALT/SGPT) 93 12-78 U/L Alkaline Phosphatase 189 45-117 U/L C-Reactive Protein 3.28 0-0.29 mg/dl Total Protein 5.9 6.4-8.2 gm/dl Albumin 2.6 3.4-5.0 gm/dl Globulin 3.3 2.5-4.0 gm/dl Albumin/Globulin Ratio 0.8 0.9-2
[2016-08-16] MEDS: LACTOBACILLUS ACIDOPHILUS (FLORANEX) TAB PO SCH ×2 (13:18→16:33)
[2016-08-16 15:59] VITALS: BP 107/70; PULSE 57; TEMP 36.8; O2SAT 100
[2016-08-16 23:43] VITALS: BP 119/63; PULSE 81; TEMP 37; O2SAT 96
[2016-08-17 07:13] VITALS: BP 127/72; PULSE 62; TEMP 36.9; O2SAT 97
[2016-08-17] MEDS: IBUPROFEN 600 MG TAB PO PRN (07:16)
[2016-08-17] MEDS ORDERED: CEFTRIAXONE SOD INJ 1000 MG in DEXTROSE 5% 50ML IV SCH (08:00)
[2016-08-17] MEDS ORDERED: CEFTRIAXONE SOD INJ 1,000 MG in DEXTROSE 5% 50ML 50 ML IV SCH (08:00)
[2016-08-17] MEDS: FLUTICASONE/SALMETEROL (ADVAIR) 500/50 INH 14 PUFF INH SCH (08:04)
[2016-08-17] MEDS: DICYCLOMINE HCL 10 MG CAP PO SCH (08:05)
[2016-08-17] MEDS: LACTOBACILLUS ACIDOPHILUS (FLORANEX) TAB PO SCH ×3 (08:05→17:15)
--- NOTE | 2016-08-17 14:11 | Progress Note ---
Medicine Progress Note Date & Time of Visit: Aug 17, 2016 at 13:55. Subjective patient seen resting in bedside chair, in good spirits states he feels much better strength and appetite improving daily ambulates with no problems in the halls denies fever/chills, headache, dyspnea, cough, abdominal pain, problems with urination and BM states he is ready and would like to be discharged today denies other symptoms Objective Last 8 Hrs Date Time Temp Pulse Resp B/P (MAP) Pulse Ox O2 Delivery O2 Flow Rate FiO2 08/17/16 08:00 Room Air 08/17/16 07:13 36.9 62 18 127/72 (90) 97 Room Air Physical Exam: General- oriented x 3, not in distress, speaks in sentences with no effort Head- atraumatic Eyes- EOMI, anicteric ENT- oropharynx clear Neck- supple, no JVD Lungs- clear breath sounds bilaterally, no rales/wheezes Heart- regular rhythm; no murmur, normal rate Abdomen- normal bowel sounds, soft, nontender Extremities- mild pretibial edema, no calf tenderness Neuro- alert, oriented x 3; no gross focal deficits Skin- warm & dry Laboratory Results: Last 24 Hours Test 08/17/16 13:53 Assessment & Plan Sepsis causing Septic Shock: Patient presented with, N/V/D/abd pain: Hypotension, Tachycardia, tachypnea, elevated lactate levels Recent Step.Pharyngitis (Completed Azithromycin) -- required ICU admission and Vasopressors, IV fluids improved -- Blood cultures 08/10/16 : (+) Group A beta strep x 2 bottles repeat Blood cultures 08/11/16: negative -- Urine culture: negative -CT ABD: showed nonspecific bilateral perinephric stranding -Urine Tox screen: Negative -Started board spectrum antibiotics: Vanco and Cefepime (x 3 days) then changed to Ceftriaxone IV (received for 5 days) - ID consulted, Dr. Palumbo recommends 2 more days of IV Ceftriaxone, then oral Amoxicilling 500mg TID x 14 days patient allergic to Amoxicillin, will discuss with Dr. Palumbo follow up with ID Dr. Palumbo in 1 week Acute Kidney Injury: - Due to above.Resolved and is back to normal. -Encouraged to drink more fluids. Hypokalemia:Likely secondary to GI losses. Resolved now. Thrombocytopenia Plt 80 recheck today no bleeding repeat CBC on follow up with PCP, monitor closely Elevated LFTs from Shock liver? GI consulted repeat LFTs pending Ct abdomen: unrevealing repeat LFTs on PCP follow up,monitor closely Microscopic Hematuria repeat UA as outpatient Chest Pain, Resolved EKG: Sinus tachycardia, non specific ST changes. Resolved. QTC: prolonged Troponin: elevated to 0.6 -- Echo: * -- Conclusions -- * The left ventricle is normal in size. * Left ventricular systolic function is normal. * Ejection Fraction = 50-55%. * The right ventricular systolic function is normal. * No significant valvular pathology. Bronchial Asthma:Continue home inhalers DVT Prophylaxis:Heparin SQ Code Status:Full Code Disposition anticipate d/c home today ff up with PCP in 1 week ff up with Dr. Palumbo in 1 week Current Inpatient Medications: Current Inpatient Medications Medications (Trade) Dose Ordered Sig/Lanie Route Start Time Stop Time Status Last Admin Dose Admin Levalbuterol (Xopenex 1.25MG/ 3ML Neb) 1.25 mg Q6H PRN INH 08/10/16 17:45 09/09/16 17:44 Ondansetron HCl (Zofran Inj) 4 mg Q6H PRN IV 08/10/16 17:45 09/09/16 17:44 08/14/16 22:49 4 MG Salmeterol Xinafoate/ Fluticasone (Advair Diskus 500/50 Inh) 1 puff BID INH 08/10/16 21:00 09/09/16 20:59 08/17/16 08:04 1 PUFF Phenol (Chloraseptic 1.4% [place]) 2 sprays Q2H PRN MT 08/12/16 03:15 09/11/16 03:14 08/13/16 01:13 2 SPRAYS Heparin Sodium (Porcine) (Heparin 10 Unit/ ml 5 ml Flush) 5 ml PRN PRN FLUSH 08/12/16 04:45 09/11/16 04:44 Prochlorperazine Edisylate 10 mg/ Syringe 10 ml @ 5 mls/min Q6H PRN IV 08/12/16 08:30 09/11/16 08:29 08/12/16 17:48 5 MLS/MIN Dicyclomine HCl (Bentyl Cap) 10 mg TID PRN PO 08/12/16 09:30 09/11/16 09:29 Dicyclomine HCl (Bentyl Cap) 10 mg BID PO 08/12/16 21:00 09/11/16 20:59 08/17/16 08:05 10 MG Loperamide HCl (Imodium Cap) 2 mg TID PRN PO 08/12/16 09:30 09/11/16 09:29 08/13/16 02:15 2 MG Ibuprofen (Motrin Tab) 600 mg TID PRN PO 08/14/16 13:00 09/13/16 12:59 08/17/16 07:16 600 MG Lactobacillus Acidophilus (Floranex Tab) 4 tab TIDM PO 08/16/16 12:00 09/15/16 11:59 08/17/16 12:30 4 TAB Ceftriaxone Sodium 2000 mg/ Dextrose 70 ml @ 140 mls/hr Q24H IV 08/18/16 08:00 09/01/16 07:59
--- NOTE | 2016-08-17 15:27 | DIAGNOSTIC IMAGING REPORT ---
ULTRASOUND BILATERAL LOWER EXTREMITY VENOUS CLINICAL HISTORY: Leg swelling. COMPARISON STUDY: No priors. TECHNIQUE: Real-time, grayscale, and color Doppler sonography of the deep veins of the right and left lower extremity was performed from the inguinal crease to the calf. Compression and augmentation were utilized. FINDINGS: There is no sonographic evidence of deep venous thrombosis identified in the right or left lower extremity. The common femoral, superficial femoral, and popliteal veins are patent and normally compressible bilaterally. The greater saphenous vein and the profunda femoris vein at the junction with the common femoral vein are clear in both legs. The visualized calf veins are patent bilaterally. IMPRESSION: There is no sonographic evidence of deep venous thrombosis identified in the right or left lower extremity. Electronically signed by: Dwayne Petersen M.D. 08/17/2016 3:26 PM Dictated Date/Time: 08/17/2016 3:26 PM
[2016-08-17 15:34] VITALS: BP 122/75; PULSE 52; TEMP 36.7; O2SAT 100
[2016-08-17 16:49] LABS: BUN/CREATININE RATIO 15.8 (10-20); CALCIUM 8.9 mg/dl (8.5-10.1); CREATININE 0.85 mg/dl (0.60-1.40); POTASSIUM 3.9 mmol/L (3.5-5.1)
[2016-08-17 17:11] LABS: HEMATOCRIT 40.3 % (42-52); MEAN CELL VOLUME 88.4 fL (80-100); MEAN CORPUSCULAR HEMOGLOBIN 31.1 pg (25-34); MEAN CORPUSCULAR HGB CONC 35.2 g/dl (32-36); MEAN PLATELET VOLUME 10.5 fL (7.4-10.4); PLATELET COUNT 179 K/uL (130-400); RED BLOOD COUNT 4.56 M/uL (4.7-6.1); WHITE BLOOD COUNT 11.16 K/uL (4.8-10.8)
[2016-08-17 17:12] LABS: COMPLETE YES; LYMPH ABS # 3.95 K/uL (1.2-3.4); LYMPHOCYTE % 35.4 %; METAMYELOCYTE % 2.7 %; MYELOCYTE % 3.5 %
[2016-08-17 18:24] VITALS: BP 122/75; PULSE 52; TEMP 36.7; O2SAT 100
[2016-08-17] MEDS ORDERED: CEFT1INJ57 IV (18:35)
[2016-08-17] MEDS ORDERED: LCTX PO (18:35)
[2016-08-17] MEDS ORDERED: amoxicillin PO (18:35)
--- NOTE | 2016-08-17 18:43 | Discharge Instructions ---
Discharge Instructions Date of Service Aug 17, 2016. Admission Reason for Admission: Diarrhea,Nausea,Vomiting Discharge Discharge Diagnosis / Problem: Sepsis, Group A Beta Strep Bacteremia Discharge Goals Goal(s): Diagnostic testing, Therapeutic intervention Activity Recommendations Activity Limitations: as noted below (increase activity gradually as tolerated) Lifting Limitations: gradually increase as tolerated Exercise/Sports Limitations: until after follow-up appointment Shower/Bathe: no limitations Driving or Machine Use: No Driving Until follow up with Primary Care Physician . Instructions / Follow-Up Instructions / Follow-Up PLEASE REVIEW YOUR NEW MEDICATION LIST AND FOLLOW INSTRUCTIONS CAREFULLY. PLEASE COME TO THE MEDICAL T[facility]AT[facility] UN[facility] OF [facility] TOMORROW AND ON TUESDAY FOR YOUR IV CEFTRIAXONE DOSES. STARTING SATURDAY AUGUST 20, 2016, START TAKING AMOXICILLIN. CALL PRIMARY CARE PHYSICIAN OR RETURN TO ER IMMEDIATELY IF WITH RECURRENCE OF SYMPTOMS, FEVER/CHILLS, WEAKNESS, COUGH. IF YOU DEVELOP RASH OR ITCHING WITH AMOXICILLIN, STOP TAKING IT, THEN TAKE 1 DOSE OF BENADRYL AND CALL YOUR PRIMARY CARE PHYSICIAN IMMEDIATELY. FOLLOW UP WITH DR. PAUL, PRIMARY CARE PHYSICIAN ON Tuesday08/20/16 AT 11:00AM. FOLLOW UP WITH INFECTIOUS DISEASE SPECIALIST DR. GAVIN IN 1 WEEK. PLEASE CALL HIS OFFICE FOR APPOINTMENT. TEL NO. Current Hospital Diet Patient's current hospital diet: Regular Diet Discharge Diet Recommended Diet: Regular Diet Procedures Procedures Performed: RIGHT IJ CATH PLACEMENT Pending Studies Studies pending at discharge: yes List of pending studies: REPEAT BLOOD WORK C/O PRIMARY CARE PHYSICIAN Medical Emergencies . Who to Call and When: Medical Emergencies: If at any time you feel your situation is an emergency, please call 911 immediately. . Non-Emergent Contact Non-Emergency issues call your: Primary Care Provider Call Non-Emergent contact if: you have a fever, your pain is not controlled, you have any medication questions . . "Provider Documentation" section prepared by Amrit Alvarez. . VTE Core Measure Inpt VTE Proph given/why not?: Unfractionated heparin SQ
[2016-08-17] MEDS ORDERED: BND25 PO (18:46)
--- NOTE | 2016-08-17 18:47 | Discharge Summary ---
Discharge Summary Date of Service Aug 17, 2016. Discharge Summary Admission Date: Aug 10, 2016 at 17:42 Discharge Date: Aug 17, 2016 Discharge Disposition: Home Principal Diagnosis: Sepsis causing Septic Shock Secondary Diagnoses/Problems: Please refer to hospital course below. Procedures: Right IJ Cath insertion Consultations: ID Dr. Gavin, GI, Lease Analyst Pending Studies/Follow-Up: REPEAT LFT's on FOLLOW UP WITH PCP; PLEASE REFER TO HOSPITAL COURSE BELOW FOR FURTHER DETAILS. Medication Reconciliation New Medications: Ceftriaxone Sod (Rocephin) 1 Gm Inj 2 GM IV DAILY for 2 Days, VIAL August 18 and 2016 Diphenhydramine Hcl (Benadryl) 25 Mg Cap 25 MG PO Q6H PRN for ALLERGIC REACTION, #10 CAP FOR HIVES, ITCHING; DO NOT DRIVE WHILE TAKING BENADRYL [amoxicillin] () 500 MG PO TID for 14 Days, #42 TABS 0 Refills start taking on August 20, 2016 Lactobacillus Acidophilus (Floranex) 1 Tab Tab 4 TAB PO TIDM for 16 Days, #192 TAB Continued Medications: Albuterol Sulfate (Proair Respiclick) 108 Mcg/Act Aer 2 PUFFS INH UD PRN for SOB/Wheezing Fluticasone Prop/Salmeterol (Advair Diskus 500/50 60 Dose) 1 Ea Aerp 1 PUFF INH BID Admission Information HPI (per Admitting provider): Patient is a 30 yr male with PMH of Asthma, GERD and no other significant medical history presents with fever, nausea, vomiting, diarrhea and abdominal pain since this morning. Patient is a very poor historian and most of the information is obtained from ED staff and patient's . As per family, patient was doing well until this morning, when he developed nausea, vomiting and diarrhea associated with fever and chills and abdominal pain. Denies any blood in vomitus or stools. States having generalized abdominal pain which is constant and is harp in quality. Patient's history is unreliable. Initially reported no chest pain and currently states having sharp diffuse pain. Patient completed an azithromycin/Prednisone course for a Strep.Pharyngitis. Patient's is unaware of any recent travel, drug use, sick contacts or similar symptoms previously. No other relevant history could be obtained. Physical Exam (per Admitting): General Appearance: WD/WN, + mild distress, + pertinent finding (Drowsy, lethargic) Head: normocephalic, atraumatic Eyes: normal inspection, PERRL, + pertinent finding (Sclera congested) ENT: normal ENT inspection, hearing grossly normal Neck: supple, trachea midline Respiratory/Chest: lungs clear, normal breath sounds, no respiratory distress, no accessory muscle use Cardiovascular: regular rate, rhythm, no edema, no murmur, + tachycardia Abdomen/GI: normal bowel sounds, soft, + tenderness (Diffuse tenderness, + flank tenderness) Back: normal inspection Extremities/Musculoskelatal: normal inspection, no pedal edema Neurologic/Psych: + pertinent finding (Lethargic, grossly no focal deficits. Complete neuro exam could not be performed) Skin: normal color, warm/dry Hospital Course Sepsis causing Septic Shock: Patient presented with, N/V/D/abd pain: Hypotension, Tachycardia, tachypnea, elevated lactate levels Recent Step.Pharyngitis (Completed Azithromycin) -- required ICU admission and Vasopressors, IV fluids improved -- Blood cultures 08/10/16 : (+) Group A beta strep x 2 bottles repeat Blood cultures 08/11/16: negative -- Urine culture: negative -CT ABD: showed nonspecific bilateral perinephric stranding -Urine Tox screen: Negative -Started board spectrum antibiotics: Vanco and Cefepime (x 3 days) then changed to Ceftriaxone IV (received for 5 days) - ID consulted, Dr. Gavin recommends 2 more days of IV Ceftriaxone, then oral Amoxicillin 500mg TID x 14 days follow up with ID Dr. Gavin in 1 week Acute Kidney Injury: - Due to above.Resolved and is back to normal. -Encouraged to drink more fluids. Hypokalemia - Likely secondary to GI losses. Resolved now. Thrombocytopenia Plt 80 rechecked, 179 no bleeding repeat CBC on follow up with PCP, monitor closely Elevated LFTs from Shock liver? GI consulted repeat LFTs about the same ast 45 alt [address] abdomen: unrevealing repeat LFTs on PCP follow up,monitor closely Chest Pain, Resolved EKG: Sinus tachycardia, non specific ST changes. Resolved. QTC: prolonged Troponin: elevated to 0.6 -- Echo: * -- Conclusions -- * The left ventricle is normal in size. * Left ventricular systolic function is normal. * Ejection Fraction = 50-55%. * The right ventricular systolic function is normal. * No significant valvular pathology. -- resolved Bronchial Asthma stable Continue home inhalers DVT Prophylaxis:Heparin SQ given Code Status:Full Code Disposition d/c home ff up with PCP in 1 week ff up with Dr. Gavin in 1 week Total time spent on discharge = 50 minutes This includes examination of the patient, discharge planning, medication reconciliation, and communication with other providers. Discharge Instructions Discharge Instructions Date of Service Aug 17, 2016. Admission Reason for Admission: Diarrhea,Nausea,Vomiting Discharge Discharge Diagnosis / Problem: Sepsis, Group A Beta Strep Bacteremia Discharge Goals Goal(s): Diagnostic testing, Therapeutic intervention Activity Recommendations Activity Limitations: as noted below (increase activity gradually as tolerated) Lifting Limitations: gradually increase as tolerated Exercise/Sports Limitations: until after follow-up appointment Shower/Bathe: no limitations Driving or Machine Use: No Driving Until follow up with Primary Care Physician . Instructions / Follow-Up Instructions / Follow-Up PLEASE REVIEW YOUR NEW MEDICATION LIST AND FOLLOW INSTRUCTIONS CAREFULLY. PLEASE COME TO THE MEDICAL TREATMENT UNIT OF [facility] TOMORROW AND ON TUESDAY FOR YOUR IV CEFTRIAXONE DOSES. STARTING SATURDAY AUGUST 20, 2016, START TAKING AMOXICILLIN. CALL PRIMARY CARE PHYSICIAN OR RETURN TO ER IMMEDIATELY IF WITH RECURRENCE OF SYMPTOMS, FEVER/CHILLS, WEAKNESS, COUGH. IF YOU DEVELOP RASH OR ITCHING WITH AMOXICILLIN, STOP TAKING IT, THEN TAKE 1 DOSE OF BENADRYL AND CALL YOUR PRIMARY CARE PHYSICIAN IMMEDIATELY. FOLLOW UP WITH DR. PAUL, PRIMARY CARE PHYSICIAN ON Tuesday08/20/16 AT 11:00AM. FOLLOW UP WITH INFECTIOUS DISEASE SPECIALIST DR. GAVIN IN 1 WEEK. PLEASE CALL HIS OFFICE FOR APPOINTMENT. TEL NO. Current Hospital Diet Patient's current hospital diet: Regular Diet Discharge Diet Recommended Diet: Regular Diet Procedures Procedures Performed: RIGHT IJ CATH PLACEMENT Pending Studies Studies pending at discharge: yes List of pending studies: REPEAT BLOOD WORK C/O PRIMARY CARE PHYSICIAN Medical Emergencies . Who to Call and When: Medical Emergencies: If at any time you feel your situation is an emergency, please call 911 immediately. . Non-Emergent Contact Non-Emergency issues call your: Primary Care Provider Call Non-Emergent contact if: you have a fever, your pain is not controlled, you have any medication questions . . "Provider Documentation" section prepared by Amrit Alvarez. . VTE Core Measure Inpt VTE Proph given/why not?: Unfractionated heparin SQ
--- NOTE | 2016-08-17 20:07 | Infectious Disease Progress Nt ---
Progress Note Date of Service Aug 17, 2016. Subjective Pt evaluation today including: conversation w/ patient, physical exam, chart review, lab review, review of studies, conversation w/ aviation consultant, review of inpatient medication list Patient continues to improve. Feeling much better. Remains afebrile. Hemodynamically stable. Follow-up cultures no growth to date. All Other Systems: Reviewed and Negative Medications Current Inpatient Medications Medications (Trade) Dose Ordered Sig/Lanie Route Start Time Stop Time Status Last Admin Dose Admin Levalbuterol (Xopenex 1.25MG/ 3ML Neb) 1.25 mg Q6H PRN INH 08/10/16 17:45 09/09/16 17:44 Ondansetron HCl (Zofran Inj) 4 mg Q6H PRN IV 08/10/16 17:45 09/09/16 17:44 08/14/16 22:49 4 MG Salmeterol Xinafoate/ Fluticasone (Advair Diskus 500/50 Inh) 1 puff BID INH 08/10/16 21:00 09/09/16 20:59 08/17/16 08:04 1 PUFF Phenol (Chloraseptic 1.4% [place]) 2 sprays Q2H PRN MT 08/12/16 03:15 09/11/16 03:14 08/13/16 01:13 2 SPRAYS Heparin Sodium (Porcine) (Heparin 10 Unit/ ml 5 ml Flush) 5 ml PRN PRN FLUSH 08/12/16 04:45 09/11/16 04:44 Prochlorperazine Edisylate 10 mg/ Syringe 10 ml @ 5 mls/min Q6H PRN IV 08/12/16 08:30 09/11/16 08:29 08/12/16 17:48 5 MLS/MIN Dicyclomine HCl (Bentyl Cap) 10 mg TID PRN PO 08/12/16 09:30 09/11/16 09:29 Dicyclomine HCl (Bentyl Cap) 10 mg BID PO 08/12/16 21:00 09/11/16 20:59 08/17/16 08:05 10 MG Loperamide HCl (Imodium Cap) 2 mg TID PRN PO 08/12/16 09:30 09/11/16 09:29 08/13/16 02:15 2 MG Ibuprofen (Motrin Tab) 600 mg TID PRN PO 08/14/16 13:00 09/13/16 12:59 08/17/16 07:16 600 MG Lactobacillus Acidophilus (Floranex Tab) 4 tab TIDM PO 08/16/16 12:00 09/15/16 11:59 08/17/16 17:15 4 TAB Ceftriaxone Sodium 2000 mg/ Dextrose 70 ml @ 140 mls/hr Q24H IV 08/18/16 08:00 09/01/16 07:59 Objective Vital Signs Date Time Temp Pulse Resp B/P (MAP) Pulse Ox O2 Delivery O2 Flow Rate FiO2 08/17/16 18:24 36.7 52 18 100 Room Air 08/17/16 16:02 Room Air 08/17/16 15:34 36.7 52 18 122/75 (91) 100 Room Air 08/17/16 08:00 Room Air 08/17/16 07:13 36.9 62 18 127/72 (90) 97 Room Air 08/17/16 00:35 Room Air 08/16/16 23:43 37.0 81 18 119/63 (81) 96 Room Air Physical Exam General Appearance: WD/WN, no apparent distress Eyes: normal inspection, sclerae normal ENT: normal ENT inspection, pharynx normal Neck: supple, no adenopathy, trachea midline Respiratory/Chest: lungs clear, normal breath sounds, no respiratory distress Cardiovascular: regular rate, rhythm, no gallop, no murmur Abdomen: normal bowel sounds, non tender, soft, no organomegaly Extremities: non-tender, normal capillary refill Neurologic/Psychiatric: alert, oriented x 3 Skin: normal color, warm/dry, no rash Lymphatic: no adenopathy Laboratory Results Last 24 Hours Test 08/17/16 16:04 White Blood Count 11.16 K/uL Red Blood Count 4.56 M/uL Hemoglobin 14.2 g/dL Hematocrit 40.3 % Mean Corpuscular Volume 88.4 fL Mean Corpuscular Hemoglobin 31.1 pg Mean Corpuscular Hemoglobin Concent 35.2 g/dl Platelet Count 179 K/uL Mean Platelet Volume 10.5 fL RDW Standard Deviation 43.2 fL RDW Coefficient of Variation 13.5 % Neutrophils % (Manual) 54.0 % Lymphocytes % (Manual) 35.4 % Monocytes % (Manual) 4.4 % Metamyelocytes % 2.7 % Myelocytes % 3.5 % Neutrophils # (Manual) 6.03 K/uL Total Absolute Neutrophils 6.03 K/uL Lymphocytes # (Manual) 3.95 K/uL Total Absolute Lymphocytes 3.95 K/uL Monocytes # (Manual) 0.49 K/uL Metamyelocytes # 0.30 K/uL Myelocytes # 0.39 K/uL Red Blood Cell Morphology Unremarkable Sodium Level 140 mmol/L Potassium Level 3.9 mmol/L Chloride Level 107 mmol/L Carbon Dioxide Level 28 mmol/L Anion Gap 5.0 mmol/L Blood Urea Nitrogen 13 mg/dl Creatinine 0.85 mg/dl Est Creatinine Clear Calc Drug Dose 130.9 ml/min Estimated GFR () 135.5 Estimated GFR (Non- 116.9 BUN/Creatinine Ratio 15.8 Random Glucose 91 mg/dl Calcium Level 8.9 mg/dl Total Bilirubin 0.4 mg/dl Direct Bilirubin 0.2 mg/dl Aspartate Amino Transf (AST/SGOT) 45 U/L Alanine Aminotransferase (ALT/SGPT) 99 U/L Alkaline Phosphatase 185 U/L Total Protein 6.9 gm/dl Albumin 3.0 gm/dl Assessment and Plan 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 Patient will be continued on ceftriaxone to complete 10 days IV Rx , then ould give amoxicillin 500 tid for 2 weeks. Discussed with Kam Schmidt.
[2016-08-18] MEDS ORDERED: CEFTRIAXONE SOD INJ 2000 MG in DEXTROSE 5% 50ML IV SCH (08:00)
[2016-08-18] MEDS ORDERED: CEFTRIAXONE SOD INJ 2,000 MG in DEXTROSE 5% 50ML 50 ML IV SCH (08:00)
== END 2016-08-17 20:53 | disposition home or self-care (01) | DRG 853 ==
LOC: C.EDB 12:24 → EEVIPCON 17:42 → C.MSICU 17:42 → ENRESERV 17:56 → C.MS4W 08-13 18:52
PROVIDERS: ADMIT Internal Medicine; ATTEND Internal Medicine
PROC: 03HB3DZ Insertion of Intraluminal Device into Right Radial Artery, Percutaneous Approach (ICD-10-PCS; principal; 2016-08-11)
PROC: 02HV33Z Insertion of Infusion Device into Superior Vena Cava, Percutaneous Approach (ICD-10-PCS; principal; 2016-08-11)
DX: A40.0 Sepsis due to streptococcus, group A (principal); G93.41 Metabolic encephalopathy; K72.00 Acute and subacute hepatic failure without coma; R65.21 Severe sepsis with septic shock; N17.9 Acute kidney failure, unspecified; K21.9 Gastro-esophageal reflux disease without esophagitis; E87.6 Hypokalemia; R07.9 Chest pain, unspecified; J45.909 Unspecified asthma, uncomplicated; Z87.891 Personal history of nicotine dependence

== ENCOUNTER 2017-06-11 12:05 | Emergency (ER) | payer BC, OTHER ==
[~2017-06-11] VITALS: Ht 170.2 cm; Wt 83.6 kg
[~2017-06-11 12:05] MED LIST changes: -AZITTAB PO; +LCTX PO; -MBXC PO; +amoxicillin PO
[2017-06-11 12:12] VITALS: TEMP 36.6; Ht 170.2 cm; Wt 83.6 kg
[2017-06-11] MEDS ORDERED: KETOROLAC TROMETHAMINE 30 MG/ML VIAL IV STA (12:26)
--- NOTE | 2017-06-11 12:40 | DIAGNOSTIC IMAGING REPORT ---
CHEST ONE VIEW PORTABLE CLINICAL HISTORY: 31 years-old Male presenting with CHEST PAIN. TECHNIQUE: AP view of the chest was obtained. COMPARISON: 08/11/2016. FINDINGS: Cardiomediastinal silhouette normal. No focal opacity. No large effusion or pneumothorax. Osseous structures normal. Upper abdomen normal. IMPRESSION: 1. No acute cardiopulmonary disease. Electronically signed by: Juan Pablo Massey M.D. 06/11/2017 12:39 PM Dictated Date/Time: 06/11/2017 12:38 PM
--- NOTE | 2017-06-11 12:56 | EMERGENCY ROOM VISIT NOTE ---
History Report prepared by [place]: Catrina Mcgowan Under the Supervision of: Dr. Francis Jay M.D. First contact with patient: 12:18 Chief Complaint: CHEST PAIN Stated Complaint: CHEST PAIN History of Present Illness The patient is a 31 year old male who presents to the Emergency Room with complaints of intermittent chest pain starting 1.5 days ago. He describes the pain as sharp. It worsens with sitting up or pulling himself up. The pain also worsens with coughing and breathing deeply. He has been taking Motrin to no significant relief. Last night, the pain became more constant. This morning, he woke up dizzy and SOB. His chest felt tight. He notes that he had toxic shock from strep throat last year. He denies any fever, rash, headache, sore throat, abdominal pain, nausea, vomiting, diarrhea, numbness, weakness, or pain/ swelling in the legs. He has a history of asthma. He denies any history of heart problems. hypertension, or diabetes. He has a family history of hypertension and heart disease. He denies any injury. He works as a correctional sergeant. He has not done anything out of the ordinary at work. He notes that he most likely has come into someone who is sick at work. Source of History: patient Onset: 1.5 days ago Position: chest Quality: sharp Timing: intermittent Modifying Factors (Worsening): breathing, movement, other (coughing) Associated Symptoms: + SOB, No fevers, No headache, No sorethroat, No nausea , No vomiting, No abdominal pain, No diarrhea, No weakness, No numbness, No rash Note: Pt reports dizziness. Review of Systems See HPI for pertinent positives & negatives. A total of 10 systems reviewed and were otherwise negative. Past Medical & Surgical Medical Problems: (1) Asthma (2) Chronic back pain (3) Diarrhea (4) Nausea & vomiting (5) [place] Teeth Removal Old medical records were reviewed. Nurse's notes were reviewed and I agree with. Family History Hypertension Social History Smoking Status: Never Smoker Alcohol Use: occasionally Drug Use: none Marital Status: Housing Status: lives with family Occupation Status: employed Current/Historical Medications Scheduled Fluticasone Prop/Salmeterol (Advair Diskus 500/50 60 Dose), 1 PUFF INH BID Scheduled PRN Albuterol Sulfate (Proair Respiclick), 2 PUFFS INH UD PRN for SOB/Wheezing Oxycodone Immediate Rel Tab (Roxicodone Ir), 1-2 TAB PO Q4H PRN for Severe Pain Allergies Coded Allergies: Amoxicillin (Verified Allergy, Unknown, hives, 06/11/17) Physical Exam Vital Signs Date Time Temp Pulse Resp B/P (MAP) Pulse Ox O2 Delivery O2 Flow Rate FiO2 06/11/17 15:05 55 17 96 06/11/17 15:00 112/64 06/11/17 14:35 78 21 96 06/11/17 14:05 57 10 96 06/11/17 14:00 116/64 06/11/17 13:35 60 12 96 06/11/17 13:05 62 13 96 06/11/17 13:00 112/63 06/11/17 12:52 96 Room Air 06/11/17 12:46 131/75 06/11/17 12:45 89 06/11/17 12:45 81 18 131/75 95 Room Air 06/11/17 12:12 36.6 76 15 133/68 98 Room Air Physical Exam General: Non-ill appearing young male in no acute distress. HEENT: Normal cephalic atraumatic. Pupils are equal round and reactive to light. Extraocular movements are intact. Oropharynx is pink with moist mucous membranes. No swelling of the mouth lips or tongue. Neck: Supple with a midline trachea. No meningeal signs or stiffness, no JVD or bruits. No Stridor. Chest: Clear to auscultation bilaterally. No wheezes or rhonchi. No increased work of breathing. Reproducibly tender bilaterally around the sternum. No rash or crepitus. Heart: regular rate and rhythm. Abdomen: Soft nontender, nondistended without rebound guarding or rigidity. Extremities: No cyanosis clubbing or edema. No calf tenderness or assymetry Spine/Back. Non tender to palpation. No CVA tenderness Skin: Good turgor without rashes. Neurologic exam: Cranial nerves two through 12 are intact. Motor and sensation are intact and symmetrical throughout. Medical Decision & Procedures ER Provider Diagnostic Interpretation: X-ray results as stated below per interpretation by me and the radiologist: CHEST ONE VIEW PORTABLE CLINICAL HISTORY: 31 years-old Male presenting with CHEST PAIN. TECHNIQUE: AP view of the chest was obtained. COMPARISON: 08/11/2016. FINDINGS: Cardiomediastinal silhouette normal. No focal opacity. No large effusion or pneumothorax. Osseous structures normal. Upper abdomen normal. IMPRESSION: 1. No acute cardiopulmonary disease. Electronically signed by: Juan Pablo Massey M.D. 06/11/2017 12:39 PM Dictated Date/Time: 06/11/2017 12:38 PM Laboratory Results 06/11/17 12:40 Red Blood Count 5.32, Mean Corpuscular Volume 85.2, Mean Corpuscular Hemoglobin 30.5, Mean Corpuscular Hemoglobin Concent 35.8, Mean Platelet Volume 10.2, Neutrophils (%) (Auto) 63.7, Lymphocytes (%) (Auto) 28.9, Monocytes (%) (Auto) 5.7, Eosinophils (%) (Auto) 1.1, Basophils (%) (Auto) 0.3, Neutrophils # (Auto) 4.83, Lymphocytes # (Auto) 2.19, Monocytes # (Auto) 0.43, Eosinophils # (Auto) 0.08, Basophils # (Auto) 0.02 06/11/17 12:40 Test 06/11/17 12:40 06/11/17 12:51 White Blood Count 7.57 K/uL (4.8-10.8) Red Blood Count 5.32 M/uL (4.7-6.1) Hemoglobin 16.2 g/dL (14.0-18.0) Hematocrit 45.3 % (42-52) Mean Corpuscular Volume 85.2 fL (80-100) Mean Corpuscular Hemoglobin 30.5 pg (25-34) Mean Corpuscular Hemoglobin Concent 35.8 g/dl (32-36) Platelet Count 191 K/uL (130-400) Mean Platelet Volume 10.2 fL (7.4-10.4) Neutrophils (%) (Auto) 63.7 % Lymphocytes (%) (Auto) 28.9 % Monocytes (%) (Auto) 5.7 % Eosinophils (%) (Auto) 1.1 % Basophils (%) (Auto) 0.3 % Neutrophils # (Auto) 4.83 K/uL (1.4-6.5) Lymphocytes # (Auto) 2.19 K/uL (1.2-3.4) Monocytes # (Auto) 0.43 K/uL (0.11-0.59) Eosinophils # (Auto) 0.08 K/uL (0-0.5) Basophils # (Auto) 0.02 K/uL (0-0.2) RDW Standard Deviation 39.4 fL (36.4-46.3) RDW Coefficient of Variation 12.7 % (11.5-14.5) Immature Granulocyte % (Auto) 0.3 % Immature Granulocyte # (Auto) 0.02 K/uL (0.00-0.02) D-Dimer < 190 ug/L FEU (0-500) Anion Gap 6.0 mmol/L (3-11) Est Creatinine Clear Calc Drug Dose 94.6 ml/min Estimated GFR () 95.7 Estimated GFR (Non- 82.6 BUN/Creatinine Ratio 9.8 (10-20) Calcium Level 9.0 mg/dl (8.5-10.1) Total Bilirubin 0.5 mg/dl (0.2-1) Direct Bilirubin 0.1 mg/dl (0-0.2) Aspartate Amino Transf (AST/SGOT) 16 U/L (15-37) Alanine Aminotransferase (ALT/SGPT) 22 U/L (12-78) Alkaline Phosphatase 71 U/L (45-117) Total Creatine Kinase 123 U/L (39-308) Creatine Kinase MB 0.7 ng/ml (0.5-3.6) Creatine Kinase MB Ratio 0.6 (0-3.0) Total Protein 7.2 gm/dl (6.4-8.2) Albumin 3.8 gm/dl (3.4-5.0) Lipase 270 U/L (73-393) Bedside Troponin I < 0.030 ng/ml (0-0.045) Laboratory studies as stated above per my review. Medications Administered Medications (Trade) Dose Ordered Sig/Lanie Route Start Time Stop Time Status Last Admin Dose Admin Ketorolac Tromethamine (Toradol Inj) 30 mg NOW STAT IV 06/11/17 12:26 06/11/17 12:27 DC 06/11/17 12:43 30 MG ECG Per My Interpretation Indication: chest pain Rate (beats per minute): 76 Rhythm: normal sinus Findings: RBBB (incomplete), no acute ischemic change Comparison ECG Date: 11-Aug-2016 Change: no significant change ED Course 1158: Past medical records reviewed. The patient was evaluated in room C3, and a complete history and physical examination were performed. 1226: Toradol Inj 30 mg IV. 1308: I reevaluated the patient. He is resting comfortably. 1320: I reevaluated the patient. I updated him on the results. 1443: Upon reevaluation, the patient is resting comfortably. I discussed the results and treatment plan with him. He verbalized agreement of the treatment plan. The patient was discharged home. Medical Decision Differentials include, but are not limited to; costochondritis, ACS, PE, pneumothorax, electrolyte or metabolic abnormality. This patient comes in with central chest pain along the sternum bilaterally. it is reproducible and likely costochondritis. He does have a history of having toxic shock syndrome about a year ago but he has nothing so far to suggest infection. He looks well on exam. IV access established EKG and chest x-ray was obtained. Multiple blood testing was obtained including cardiac biomarkers as well as d-dimer. He was given Toradol 30 mg IV. EKG does not suggest acute coronary syndrome or arrhythmia, there are no acute ischemic changes. Troponin was 0. Chest x-ray does not show congestive heart failure, pneumonia, or pneumothorax. He has no white count or fever to suggest infection. He is not tachycardic. He has remained stable. His cardiac biomarkers are not elevated. He has nothing to suggest infection, he has no fever, white count. He has no acute electrolyte or metabolic abnormality. His d-dimer is negative and in a low pretest probability setting makes PE highly unlikely. His symptoms are reproducible, I think is most likely is costochondritis. I will have him use primarily ibuprofen 400 mg every 6 hours, take with food. He was given a small prescription for OxyIR 5 mg, 1 pill every 6 hours as needed he can use his for breakthrough pain. He was warned that this could make him drowsy do not take before drinking, driving, working. He is happy to plan and discharged to home. Medication Reconcilliation Current Medication List: was personally reviewed by me Blood Pressure Screening Patient's blood pressure: Elevated blood pressure Blood pressure disposition: Referred to PCP Impression Primary Impression: Costochondritis Additional Impression: Non-cardiac chest pain Scribe Attestation The scribe's documentation has been prepared under my direction and personally reviewed by me in its entirety. I confirm that the note above accurately reflects all work, treatment, procedures, and medical decision making performed by me. Departure Information Dispostion Home / Self-Care Prescriptions Oxycodone Immediate Rel Tab (ROXICODONE IR) 5 Mg Tab 1-2 TAB PO Q4H Y for Severe Pain, #14 TAB Prov: Francis Jay M.D. 06/11/17 Referrals No Doctor, Assigned (PCP) Forms Call Back Authorization, HOME CARE DOCUMENTATION FORM, IMPORTANT VISIT INFORMATION Patient Instructions [facility] Additional Instructions Rest. Drink plenty of fluids. Use ibuprofen 600 mg every 6 hours, take with food. For breakthrough pain may use OxyIR 5 mg, 1 or 2 pills every 4-6 hours as needed OxyIR may make you drowsy and do not take before drinking, driving, working Return if: Increasing pain, worsening of symptoms, fever chills, shortness of breath, any new problems or concerns Follow-up with your doctor on Tuesday for recheck or return to the ER over the weekend if symptoms worsen Problem Qualifiers
[2017-06-11 13:03] LABS: BASO % 0.3 %; BASO ABS # 0.02 K/uL (0-0.2); EOS % 1.1 %; EOS ABS # 0.08 K/uL (0-0.5); HEMATOCRIT 45.3 % (42-52); HEMOGLOBIN 16.2 g/dL (14.0-18.0); IG# 0.02 K/uL (0.00-0.02); LYMPH % 28.9 %; LYMPH ABS # 2.19 K/uL (1.2-3.4); MEAN CELL VOLUME 85.2 fL (80-100); MEAN CORPUSCULAR HEMOGLOBIN 30.5 pg (25-34); MEAN CORPUSCULAR HGB CONC 35.8 g/dl (32-36); MEAN PLATELET VOLUME 10.2 fL (7.4-10.4); MONO % 5.7 %; MONO ABS # 0.43 K/uL (0.11-0.59); NEUT % 63.7 %; NEUT ABS # 4.83 K/uL (1.4-6.5); PLATELET COUNT 191 K/uL (130-400); RED CELL DISTRIBUTION WIDTH CV 12.7 % (11.5-14.5); RED CELL DISTRIBUTION WIDTH SD 39.4 fL (36.4-46.3); WHITE BLOOD COUNT 7.57 K/uL (4.8-10.8)
[2017-06-11 13:21] LABS: ALBUMIN 3.8 gm/dl (3.4-5.0); CREATININE 1.17 mg/dl (0.60-1.40); POTASSIUM 3.8 mmol/L (3.5-5.1)
[2017-06-11 13:26] LABS: CKMB 0.7 ng/ml (0.5-3.6); TOTAL PROTEIN 7.2 gm/dl (6.4-8.2)
[2017-06-11] MEDS ORDERED: OXYC1TAB3 PO (14:39)
[2017-06-11 15:00] VITALS: BP 112/64
[2017-06-11 15:05] VITALS: PULSE 55; O2SAT 96
== END 2017-06-11 15:23 | disposition home or self-care (01) ==
LOC: C.EDB 12:08 → C.EDC 15:23
DX: M94.0 Chondrocostal junction syndrome [Tietze] (principal); R07.89 Other chest pain; J45.909 Unspecified asthma, uncomplicated; Z88.1 Allergy status to other antibiotic agents

== ENCOUNTER 2017-10-02 16:42 | Emergency (ER) | payer OTHER ==
[~2017-10-02] VITALS: Ht 170.2 cm; Wt 81.5 kg
[~2017-10-02 16:42] MED LIST changes: -LCTX PO; +OXYC-737 PO; -amoxicillin PO
[2017-10-02 16:46] VITALS: TEMP 36.8; Ht 170.2 cm; Wt 81.5 kg
[2017-10-02] MEDS ORDERED: MoRPHine SULFATE 4 MG/ML 1 ML CARP\\VIAL IV STA ×2 (17:00→18:37)
[2017-10-02] MEDS ORDERED: KETOROLAC TROMETHAMINE 30 MG/ML VIAL IV STA (17:00)
--- NOTE | 2017-10-02 17:01 | EMERGENCY ROOM VISIT NOTE ---
History Report prepared by Triston: Zaki Conte Under the Supervision of: Dr. Doc Haney M.D. First contact with patient: 16:53 Chief Complaint: CHEST PAIN Stated Complaint: CHEST PAIN, DIZZY Nursing Triage Summary: mid sternal chest pain that radiates out to sides of chest. states has been dealing with this for a while but today is much worse. states he has also been dealing with dizziness today History of Present Illness The patient is a 32 year old male who presents to the Emergency Room with complaints of severe chest pain in the center of his chest that started today. He states that the pain worsens when he take a deep breath, coughs, sneezes, or moves his arms. He notes he took Motrin for the pain but it did not help. On the way to the ED he notes he started to feel dizzy. The patient denies recent travel, cough, fever, shortness of breath, nausea or rash. Although he does have a history of asthma and one year ago he was admitted to the ICU for septic blood poisoning as a result of strep throat. Source of History: patient Onset: Today Position: chest Symptom Intensity: severe Modifying Factors (Worsening): breathing, stretching, movement Associated Symptoms: No fevers, No cough, No SOB, No nausea Review of Systems See HPI for pertinent positives and negatives. A total of ten systems were reviewed and were otherwise negative. Past Medical & Surgical Medical Problems: (1) Asthma (2) Chronic back pain (3) Diarrhea (4) Nausea & vomiting (5) Warren Teeth Removal Family History Hypertension Social History Smoking Status: Never Smoker Alcohol Use: occasionally Drug Use: none Marital Status: Housing Status: lives with family Occupation Status: employed Current/Historical Medications Scheduled Famotidine (Pepcid), 20 MG PO BID Fluticasone Prop/Salmeterol (Advair Diskus 500/50 60 Dose), 1 PUFF INH BID Scheduled PRN Albuterol Sulfate (Proair Respiclick), 2 PUFFS INH UD PRN for SOB/Wheezing Ibuprofen (Motrin), 600 MG PO TID PRN for Pain Oxycodone Ir (Roxicodone Ir), 1 TAB PO Q6 PRN for Pain Allergies Coded Allergies: Doxycycline (Unverified Allergy, Intermediate, HIVES, 10/02/17) Amoxicillin (Verified Allergy, Unknown, hives, 10/02/17) Physical Exam Vital Signs Date Time Temp Pulse Resp B/P (MAP) Pulse Ox O2 Delivery O2 Flow Rate FiO2 10/02/17 19:10 60 13 119/59 97 Room Air 10/02/17 18:30 128/64 10/02/17 18:17 64 13 97 10/02/17 18:12 82 12 114/61 97 Room Air 10/02/17 17:30 121/68 10/02/17 17:23 136/77 10/02/17 17:18 81 10/02/17 17:02 98 Room Air 10/02/17 17:02 98 Room Air 10/02/17 16:46 36.8 83 20 122/68 99 Room Air Physical Exam GENERAL: Awake, alert, uncomfortable appearing, in no distress HENT: Normocephalic, atraumatic. Oropharynx unremarkable. EYES: Normal conjunctiva. Sclera non-icteric. NECK: Supple. No nuchal rigidity. Trachea midline. RESPIRATORY: Clear to auscultation. No wheezes. Normal respiratory effort. CARDIAC: Normal rate. Normal rhythm. Extremities warm and well perfused. GI: Soft, non-distended. No tenderness to palpation. No rebound or guarding. No masses. RECTAL: Deferred. MUSCULOSKELETAL: Atraumatic. Significant anterior chest wall tenderness without crepitus or rash. LOWER EXTREMITIES: Calves are equal size bilaterally and non-tender. No edema NEURO: Normal sensorium. No sensory or motor deficits noted. No facial droop. SKIN: Warm and dry. No rash or jaundice noted. Medical Decision & Procedures ER Provider Diagnostic Interpretation: Radiology results as stated below per my review and radiologist interpretation: CHEST 2 VIEWS ROUTINE HISTORY: 32 years-old Male CHEST PAIN acute atypical chest pain COMPARISON: Chest radiograph 06/11/2017 TECHNIQUE: PA and lateral views of the chest FINDINGS: Cardiomediastinal and hilar silhouettes are within normal limits. No pneumothorax, pleural effusion, focal airspace consolidation or overt pulmonary edema. The bones of the chest appear grossly intact. IMPRESSION: No acute process. The above report was generated using voice recognition software. It may contain grammatical, syntax or spelling errors. Electronically signed by: Aj Carroll M.D. 10/02/2017 6:15 PM Dictated Date/Time: 10/02/2017 6:14 PM Laboratory Results 10/02/17 17:10 Red Blood Count 5.22, Mean Corpuscular Volume 86.6, Mean Corpuscular Hemoglobin 30.1, Mean Corpuscular Hemoglobin Concent 34.7, Mean Platelet Volume 10.5, Neutrophils (%) (Auto) 56.5, Lymphocytes (%) (Auto) 35.2, Monocytes (%) (Auto) 6.7, Eosinophils (%) (Auto) 1.2, Basophils (%) (Auto) 0.1, Neutrophils # (Auto) 4.19, Lymphocytes # (Auto) 2.61, Monocytes # (Auto) 0.50, Eosinophils # (Auto) 0.09, Basophils # (Auto) 0.01 10/02/17 17:10 Test 10/02/17 17:10 White Blood Count 7.42 K/uL (4.8-10.8) Red Blood Count 5.22 M/uL (4.7-6.1) Hemoglobin 15.7 g/dL (14.0-18.0) Hematocrit 45.2 % (42-52) Mean Corpuscular Volume 86.6 fL (80-100) Mean Corpuscular Hemoglobin 30.1 pg (25-34) Mean Corpuscular Hemoglobin Concent 34.7 g/dl (32-36) Platelet Count 159 K/uL (130-400) Mean Platelet Volume 10.5 fL (7.4-10.4) Neutrophils (%) (Auto) 56.5 % Lymphocytes (%) (Auto) 35.2 % Monocytes (%) (Auto) 6.7 % Eosinophils (%) (Auto) 1.2 % Basophils (%) (Auto) 0.1 % Neutrophils # (Auto) 4.19 K/uL (1.4-6.5) Lymphocytes # (Auto) 2.61 K/uL (1.2-3.4) Monocytes # (Auto) 0.50 K/uL (0.11-0.59) Eosinophils # (Auto) 0.09 K/uL (0-0.5) Basophils # (Auto) 0.01 K/uL (0-0.2) RDW Standard Deviation 40.3 fL (36.4-46.3) RDW Coefficient of Variation 12.6 % (11.5-14.5) Immature Granulocyte % (Auto) 0.3 % Immature Granulocyte # (Auto) 0.02 K/uL (0.00-0.02) D-Dimer < 190 ug/L FEU (0-500) Anion Gap 10.0 mmol/L (3-11) Est Creatinine Clear Calc Drug Dose 77.4 ml/min Estimated GFR () 76.5 Estimated GFR (Non- 66.0 BUN/Creatinine Ratio 14.4 (10-20) Calcium Level 8.6 mg/dl (8.5-10.1) Total Bilirubin 0.4 mg/dl (0.2-1) Direct Bilirubin 0.1 mg/dl (0-0.2) Aspartate Amino Transf (AST/SGOT) 19 U/L (15-37) Alanine Aminotransferase (ALT/SGPT) 25 U/L (12-78) Alkaline Phosphatase 72 U/L (45-117) Troponin I < 0.015 ng/ml (0-0.045) Total Protein 7.1 gm/dl (6.4-8.2) Albumin 3.8 gm/dl (3.4-5.0) Lipase 163 U/L (73-393) Laboratory results reviewed by me Medications Administered Medications (Trade) Dose Ordered Sig/Lanie Route Start Time Stop Time Status Last Admin Dose Admin Ketorolac Tromethamine (Toradol Inj) 15 mg NOW STAT IV 10/02/17 17:00 10/02/17 17:01 DC 10/02/17 17:22 15 MG Morphine Sulfate (MoRPHine SULFATE INJ) 4 mg NOW STAT IV 10/02/17 17:00 10/02/17 17:01 DC 10/02/17 17:22 4 MG Sodium Chloride 1,000 ml @ 999 mls/hr Q1H1M ONCE IV 10/02/17 17:49 10/02/17 18:49 DC 10/02/17 18:05 999 MLS/HR Morphine Sulfate (MoRPHine SULFATE INJ) 4 mg NOW STAT IV 10/02/17 18:37 10/02/17 18:39 DC 10/02/17 19:04 4 MG Oxycodone HCl (Roxicodone Immediate Rel 5MG Home Pack) 1 homepack UD ONCE PO 10/02/17 18:45 10/02/17 18:46 DC 10/02/17 19:04 1 HOMEPACK Famotidine (Pepcid 20mg Iv Push) 20 mg ONE STAT IV 10/02/17 18:44 10/02/17 18:45 DC 10/02/17 19:04 20 MG ECG Per My Interpretation Indication: chest pain Rate (beats per minute): 83 Rhythm: sinus rhythm (with sinus arrhythmia ) Findings: RBBB (Incomplete), other (No ST elevation, non-specific lead 3 T wave changes ) Comparison ECG Date: June 11, 2017 Change: no significant change ED Course 1653: The patient was evaluated in room C2B. A complete history and physical exam was performed. 1700: Morphine Sulfate 4mg IV, Toradol 15mg IV 1749: Sodium Chloride 1000ml @ 999mls/hr IV 1839: I reevaluated the patient. Discussed results and discharge instructions: He verbalized understanding and agreement. The patient is ready for discharge. Medical Decision Differential diagnosis: Etiologies such as cardiac ischemia, aortic dissection, pulmonary embolism, pneumonia, pneumothorax, musculoskeletal, infections, pericarditis, myocarditis , esophageal rupture, gastrointestinal, as well as others were entertained. Patient presents with onset this morning of central chest pain rating the bilateral chest. Hurts with movement or deep breath. Denies shortness of breath. Denies abdominal symptoms. Denies traumatic injury. Denies fever. States Motrin at home did not help. Denies recent travel or leg swelling. Denies rash. Likely musculoskeletal versus costochondritis. Did complete EKG and troponin to exclude ACS. Does not seem consistent with dissection. Somewhat pleuritic so did complete d-dimer although low probability. This was negative. Chest x-ray completed without evidence of pneumonia pneumothorax. Again consistent with more a musculoskeletal component. Given Toradol here an additional amount of pain medicine. Doubt this is myocarditis or pericarditis. Discussed return criteria to feel he is stable for discharge and outpatient follow-up. Will place on a course of NSAIDs and breakthrough pain medicine. Discussed risk factors regarding pain medication and use. Given information for PCP to follow up with. Medication Reconcilliation Current Medication List: was personally reviewed by me Blood Pressure Screening Patient's blood pressure: Normal blood pressure Impression Primary Impression: Musculoskeletal chest pain Scribe Attestation The scribe's documentation has been prepared under my direction and personally reviewed by me in its entirety. I confirm that the note above accurately reflects all work, treatment, procedures, and medical decision making performed by me. Departure Information Dispostion Home / Self-Care Prescriptions Oxycodone Ir (Roxicodone Ir) 5 Mg Tab 1 TAB PO Q6 Y for Pain, #12 TAB Prov: Doc Haney M.D. 10/02/17 Famotidine (Pepcid) 20 Mg Tab 20 MG PO BID for 10 Days, #20 TAB Prov: Doc Haney M.D. 10/02/17 Ibuprofen (Motrin) 600 Mg Tab 600 MG PO TID Y for Pain, #15 TAB With Food Prov: Doc Haney M.D. 10/02/17 Referrals No Doctor, Assigned (PCP) Forms Call Back Authorization, HOME CARE DOCUMENTATION FORM, IMPORTANT VISIT INFORMATION Patient Instructions My [facility] Additional Instructions Please maintain good hydration and utilize prescribed Motrin to help with pain inflammation. Utilize the oxycodone for breakthrough pain. Please be careful driving or operating machinery until he understand how this medication effects you. Would recommend follow-up for long-term care going forward and utilize the list of various offices and physicians in the area to establish primary care provider. If at any time you have concerns she can always return here for reevaluation. Maintain hydration and avoid strenuous activity until improved.
[2017-10-02 17:02] VITALS: O2SAT 98
[2017-10-02 17:21] LABS: BASO % 0.1 %; BASO ABS # 0.01 K/uL (0-0.2); EOS % 1.2 %; EOS ABS # 0.09 K/uL (0-0.5); HEMATOCRIT 45.2 % (42-52); HEMOGLOBIN 15.7 g/dL (14.0-18.0); IG# 0.02 K/uL (0.00-0.02); LYMPH % 35.2 %; LYMPH ABS # 2.61 K/uL (1.2-3.4); MEAN CELL VOLUME 86.6 fL (80-100); MEAN CORPUSCULAR HEMOGLOBIN 30.1 pg (25-34); MEAN CORPUSCULAR HGB CONC 34.7 g/dl (32-36); MEAN PLATELET VOLUME 10.5 fL (7.4-10.4); MONO % 6.7 %; NEUT % 56.5 %; NEUT ABS # 4.19 K/uL (1.4-6.5); PLATELET COUNT 159 K/uL (130-400); RED CELL DISTRIBUTION WIDTH CV 12.6 % (11.5-14.5); RED CELL DISTRIBUTION WIDTH SD 40.3 fL (36.4-46.3); WHITE BLOOD COUNT 7.42 K/uL (4.8-10.8)
[2017-10-02 17:46] LABS: ALBUMIN 3.8 gm/dl (3.4-5.0); ALKALINE PHOSPHATASE 72 U/L (45-117); ALT/SGPT 25 U/L (12-78); AST/SGOT 19 U/L (15-37); BLOOD UREA NITROGEN 20 mg/dl (7-18); CALCIUM 8.6 mg/dl (8.5-10.1); CARBON DIOXIDE 25 mmol/L (21-32); GLUCOSE 92 mg/dl (70-99); LIPASE 163 U/L (73-393); POTASSIUM 3.8 mmol/L (3.5-5.1); SODIUM 140 mmol/L (136-145); TOTAL PROTEIN 7.1 gm/dl (6.4-8.2)
[2017-10-02] MEDS ORDERED: SODIUM CHLORIDE 0.9% 1000ML 1,000 ML IV ONE (17:49)
--- NOTE | 2017-10-02 18:16 | DIAGNOSTIC IMAGING REPORT ---
CHEST 2 VIEWS ROUTINE HISTORY: 32 years-old Male CHEST PAIN acute atypical chest pain COMPARISON: Chest radiograph 06/11/2017 TECHNIQUE: PA and lateral views of the chest FINDINGS: Cardiomediastinal and hilar silhouettes are within normal limits. No pneumothorax, pleural effusion, focal airspace consolidation or overt pulmonary edema. The bones of the chest appear grossly intact. IMPRESSION: No acute process. The above report was generated using voice recognition software. It may contain grammatical, syntax or spelling errors. Electronically signed by: Aj Carroll M.D. 10/02/2017 6:15 PM Dictated Date/Time: 10/02/2017 6:14 PM
[2017-10-02] MEDS ORDERED: FAMOTIDINE 20MG/5ML IV PUSH IV STA (18:44)
[2017-10-02] MEDS ORDERED: OXYCODONE IR HOME PACK PO ONE (18:45)
[2017-10-02] MEDS ORDERED: IBUP600T44 PO (18:46)
[2017-10-02] MEDS ORDERED: FAMO20TA11 PO (18:46)
[2017-10-02] MEDS ORDERED: OXYC-90 PO (18:46)
[2017-10-02 19:10] VITALS: BP 119/59; PULSE 60; O2SAT 97
== END 2017-10-02 19:11 | disposition home or self-care (01) ==
LOC: C.EDB 16:44 → C.EDC 19:11
DX: R07.89 Other chest pain (principal); R42 Dizziness and giddiness; J45.909 Unspecified asthma, uncomplicated; Z82.49 Family history of ischemic heart disease and other diseases of the circulatory system; Z88.1 Allergy status to other antibiotic agents

== ENCOUNTER 2018-08-07 14:33 | Observation (INO) ==
[2018-08-07] MEDS ORDERED: ACETAMINOPHEN 1,000 MG/100 ML VIAL IV STA (15:09)
[2018-08-07] MEDS ORDERED: ONDANSETRON INJ 2 MG/ML 2 ML VIAL IV STA (15:09)
[2018-08-07] MEDS ORDERED: MoRPHine SULFATE 10 MG/ML CARP/VIAL IV STA ×2 (15:09→17:21)
[2018-08-07] MEDS: SODIUM CHLORIDE 0.9% 1000ML 1,000 ML IV SCH ×2 (15:43→16:55)
[2018-08-07 15:44] LABS: Basophils # (auto) 0.02 K/uL (0-0.2); Basophils % (auto) 0.1 %; Eosinophils # (auto) 0.03 K/uL (0-0.5); Eosinophils % (auto) 0.2 %; Hematocrit (blood only) 44.1 % (42-52); Hemoglobin 16.1 g/dL (14.0-18.0); Immature Granulocytes # (auto) 0.03 K/uL (0.00-0.02); Immature Granulocytes % (auto) 0.2 %; Lymphocytes % (auto) 18.7 %; Mean Corpuscular Hgb Conc 36.5 g/dL (32-36); Mean Corpuscular Volume 83.8 fL (80-100); Mean Platelet Volume 10.1 fL (7.4-10.4); Monocytes # (auto) 0.88 K/uL (0.11-0.59); Monocytes % (auto) 6.3 %; Neutrophils # (auto) 10.36 K/uL (1.4-6.5); Neutrophils % (auto) 74.5 %; Platelet Count 226 K/uL (130-400); RDW Coefficient of Variation 12.5 % (11.5-14.5); RDW Standard Deviation 37.9 fL (36.4-46.3); Red Blood Count 5.26 M/uL (4.7-6.1); White Blood Count 13.92 K/uL (4.8-10.8)
[2018-08-07 15:55] LABS: INR 1.1 (0.9-1.1); Prothrombin Time 10.9 Seconds (9.0-12.0)
[2018-08-07 16:04] LABS: Albumin Level 4.2 gm/dl (3.4-5.0); BUN Creatinine Ratio 8.8 (10-20); Calcium 9.9 mg/dl (8.5-10.1); Creatinine Clr Calc Pharmacy 81.3 ml/min; Est GFR (African American) 80.7; Est GFR (Non-African American) 69.6; Potassium 3.5 mmol/L (3.5-5.1)
[2018-08-07 16:07] LABS: Albumin Globulin Ratio 1.3 (0.9-2); Bilirubin,Total 0.5 mg/dl (0.2-1); Globulin 3.3 gm/dl (2.5-4.0); Total Protein 7.5 gm/dl (6.4-8.2)
[2018-08-07 16:39] LABS: Appearance Urine Clear (Clear); Bilirubin Urine Negative (Negative); Blood Urine Negative (Negative); Color Urine Yellow; Glucose Urine UA Negative (Negative); Ketones Urine Negative (Negative); Leukocyte Esterase Urine Negative (Negative); Nitrite Urine Negative (Negative); Protein Urine Negative (Negative); Specific Gravity Urine 1.011 (1.000-1.030); Urobilinogen Urine Negative (Negative); pH Urine >= 9.0 (4.5-7.5)
[2018-08-07] MEDS ORDERED: IOVERSOL 100ml IV PRN (16:39)
--- NOTE | 2018-08-07 17:01 | CT Scan Report ---
CT OF THE ABDOMEN AND PELVIS WITH CONTRAST CLINICAL HISTORY: lower abdominal pain, nausea COMPARISON STUDY: CT of the abdomen pelvis August 10, 2016. Abdominal ultrasound August 11, 2016. TECHNIQUE: Following IV administration of 90 mL of Optiray-320, axial images of the abdomen and pelvi s were obtained from the lung bases to the proximal femurs. Images were reviewed in the axial, sagitt al, and coronal planes. IV contrast was administered without complication. Automated exposure contro l was utilized for the study. A dose lowering technique was utilized adhering to the principles of A HENNA. CT DOSE: 600.70 mGycm FINDINGS: Lung bases are clear. The liver, spleen, adrenal glands, kidneys and pancreas are normal. T here is no biliary or pancreatic ductal dilatation. There is no hydronephrosis. No pneumatosis, free air or portal venous gas is present. There is no peripancreatic or pericholecystic infiltration. Ther e is no evidence for a bowel obstruction. Borderline dilatation of the appendiceal tip, measuring 7 mm is noted. The mid to distal appendix is fluid-filled. No periappendiceal infiltration is noted. There is no free air or abscess. Trace fluid within the pelvis is noted. No suspicious skeletal lesions are noted. IMPRESSION: Fluid filled borderline dilated appendix. No periappendiceal abscess or free air. The fi ndings are not definitive but raise the possibility of early acute appendicitis. Trace fluid within t he pelvis. Electronically signed by: Yusef Thornton M.D. 08/07/2018 4:59 PM
[2018-08-07] MEDS ORDERED: cefTRIAXone SODIUM 2,000 MG in DEXTROSE 5% 50 ML IV STA (17:35)
--- NOTE | 2018-08-07 18:11 | Anesthesiology Consultation ---
Date of Service August 07, 2018 Assessment & Plan (1) Encounter for pre-operative examination: Chart Review Chart Review: Acceptable Risk for Surgery History Surgery Operation Date: 08/07/18 18:05 Proposed Procedures p Laparoscopic Appendectomy - Jose Miguel Sidhu MD Height/Weight Height: 5 ft 7 in Weight: 82.4 kg Allergies Allergy/AdvReac Type Severity Reaction Status Date / Time amoxicillin Allergy Intermediate Hives Verified 08/07/18 15:45 doxycycline Allergy Intermediate Hives Verified 08/07/18 15:45 Medications Home Medications Medication Instructions Recorded Confirmed Last Taken levofloxacin 500 mg tablet 500 mg PO DAILY #5 tab 08/03/18 08/07/18 Unknown Active Medications Generic Name Dose Route Start Last Admin Trade Name Freq PRN Reason Stop Dose Admin Ioversol 90 ml 08/07/18 16:39 08/07/18 16:40 Optiray 320 100ml IV 08/11/18 16:38 90 ml ONCE PRN Administration Interaction Checking Past Medical History Medical History Asthma Past Family History Family History Other Cancer Diabetes Heart disease Hypertension Social History Smoking Status: Never smoker Hx Substance Use: No Physical Exam Vital Signs Last Vital Signs Temp 36.3 C L 08/07/18 14:34 Pulse 78 08/07/18 17:51 Resp 18 08/07/18 17:51 BP 139/78 08/07/18 17:51 Pulse Ox 98 08/07/18 17:51 Testing Laboratory Results 08/07/18 15:25 08/07/18 15:25 PT 10.9 Seconds (9.0-12.0) 08/07/18 15:25 INR 1.1 (0.9-1.1) 08/07/18 15:25 Urine Color Yellow 08/07/18 16:26 Urine Appearance Clear (Clear) 08/07/18 16:26 Urine pH >= 9.0 (4.5-7.5) H 08/07/18 16:26 Ur Specific [place] 1.011 (1.000-1.030) 08/07/18 16:26 Urine Protein Negative (Negative) 08/07/18 16:26 Urine Glucose (UA) Negative (Negative) 08/07/18 16:26 Urine Ketones Negative (Negative) 08/07/18 16:26 Urine Nitrite Negative (Negative) 08/07/18 16:26 Ur Leukocyte Esterase Negative (Negative) 08/07/18 16:26
[2018-08-07] MEDS ORDERED: KETOROLAC 30 MG/ML VIAL IV PRN (18:12)
[2018-08-07] MEDS ORDERED: ONDANSETRON INJ 2 MG/ML 2 ML VIAL IV PRN ×2 (18:12→19:40)
[2018-08-07] MEDS ORDERED: ATROPINE SULFATE 0.1 MG/ML 10ML SYR IV PRN (18:12)
--- NOTE | 2018-08-07 18:16 | Surgery Consultation ---
Date of Consultation August 07, 2018 Assessment & Plan (1) Appendicitis: pt is a 32 year-old male who presents to Er with one day history RLQ pain, CT scan dx acute appendicitis, IMP: acute abdominal pain, acute appendicitis, Plan, I recommend to do laparoscopic appendectomy, possible open, D/W benefits, risks and alternatives of the surgery, the risks - infection, bleeding, abscess, injury bowel, , pt and his father understood, they agree with the surgery, I answered all questions, History of Present Illness History of Present Illness CC: abdominal pain HPI: pt is a 32 year-old male who presents to ER with one day history abdominal pain with nausea, nora pain is located at RLQ area, some diarrhea, no bloody stool, pt denies fever, no chest pain, pt had CT scan dx acute appendicitis. Allergies Allergy/AdvReac Type Severity Reaction Status Date / Time amoxicillin Allergy Intermediate Hives Verified 08/07/18 15:45 doxycycline Allergy Intermediate Hives Verified 08/07/18 15:45 Home Medications Home Medications Medication Instructions Recorded Confirmed Type levofloxacin 500 mg tablet 500 mg PO DAILY #5 tab 08/03/18 08/07/18 Rx Patient History Medical History Asthma Family History Other Cancer Diabetes Heart disease Hypertension Social History Preferred Language: Persian Feels Safe at Home: Yes Smoking Status: Never smoker Hx Substance Use: No Review of Systems Review of Systems: All systems reviewed & are unremarkable except as noted in HPI & below Physical Exam Constitutional: WD/WN, vitals as above well developed and well nourished ENMT: external ear and nose normal, oropharynx normal Neck: trachea midline, no thyromegaly Respiratory: normal respiratory effort, lungs clear to auscultation normal respiratory effort Cardiovascular: RRR, no murmur, no edema Rate/Rhythm: regular rate and regular rhythm Heart Sounds: normal S1 and normal S2 Gastrointestinal (Abdomen): soft, tenderness at RLQ, no rebound pain, BS + Musculoskeletal: no cyanosis or clubbing, extremities motor strength 5/5 Neurologic: patellar DTR's 2+ bilat, sensation intact Psychiatric: A+Ox3, euthymic affect Orientation: alert and oriented x 3 Genitourinary: no testicular masses, no penis abnormality Lymphatic: no cervical or axillary lymphadenopathy Results & Data Vital Signs (Past 12 Hours) Vital Signs Temp Pulse Pulse Resp BP BP Pulse Ox 08/07/18 17:51 78 18 139/78 98 08/07/18 16:00 80 18 120/65 94 08/07/18 15:54 68 15 116/74 94 08/07/18 15:53 97 08/07/18 14:34 36.3 C L 74 20 144/76 H 99 Laboratory Results Abnormal lab results 08/07/18 08/07/18 08/07/18 Range/Units 15:25 15:25 16:26 WBC 13.92 H (4.8-10.8) K/uL MCHC 36.5 H (32-36) g/dL Immature Gran # (Auto) 0.03 H (0.00-0.02) K/uL Neut # (Auto) 10.36 H (1.4-6.5) K/uL [place] # (Auto) 0.88 H (0.11-0.59) K/uL Anion Gap 12.0 H (3-11) BUN/Creatinine Ratio 8.8 L (10-20) Glucose 103 H (70-99) mg/dl Urine pH >= 9.0 H (4.5-7.5) Diagnostic Findings CT OF THE ABDOMEN AND PELVIS WITH CONTRAST CLINICAL HISTORY: lower abdominal pain, nausea COMPARISON STUDY: CT of the abdomen pelvis August 10, 2016. Abdominal ultrasound August 11, 2016. TECHNIQUE: Following IV administration of 90 mL of Optiray-320, axial images of the abdomen and pelvis were obtained from the lung bases to the proximal femurs. Images were reviewed in the axial, sagittal, and coronal planes. IV contrast was administered without complication. Automated exposure control was utilized for the study. A dose lowering technique was utilized adhering to the principles of ALARA. CT DOSE: 600.70 mGycm FINDINGS: Lung bases are clear. The liver, spleen, adrenal glands, kidneys and pancreas are normal. There is no biliary or pancreatic ductal dilatation. There is no hydronephrosis. No pneumatosis, free air or portal venous gas is present. There is no peripancreatic or pericholecystic infiltration. There is no evidence for a bowel obstruction. Borderline dilatation of the appendiceal tip, measuring 7 mm is noted. The mid to distal appendix is fluid-filled. No periappendiceal infiltration is noted. There is no free air or abscess. Trace fluid within the pelvis is noted. No suspicious skeletal lesions are noted. IMPRESSION: Fluid filled borderline dilated appendix. No periappendiceal abscess or free air. The findings are not definitive but raise the possibility of early acute appendicitis. Trace fluid within the pelvis. (1) Appendicitis Acute appendicitis type: unspecified acute appendicitis type Appendicitis type: acute appendicitis Qualified Code(s): K35.80 - Unspecified acute appendicitis
[2018-08-07] MEDS ORDERED: BACITRACIN OINT 15 GM TUBE ONE (18:19)
[2018-08-07] MEDS ORDERED: LIDOCAINE HCL 1% 20 ML VIAL ONE (18:19)
[2018-08-07] MEDS ORDERED: BUPIVACAINE 0.5 % 5 MG/1 ML MPF 30ML VIAL ONE (18:19)
--- NOTE | 2018-08-07 18:19 | History & Physical Bridge Note ---
Date of Service August 07, 2018 History & Physical Bridge Note I have examined the patient, reviewed the History & Physical and in the interval since the performance of the History & Physical I have noted the following changes of clinical significance: no changes noted
[2018-08-07] MEDS ORDERED: ONDANSETRON INJ 2 MG/ML 2 ML VIAL ONE (18:30)
[2018-08-07] MEDS ORDERED: PROPOFOL IV EMULSION 10 MG/ML 20 ML VIAL IV ONE (18:30)
[2018-08-07] MEDS ORDERED: DEXAMETHASONE SOD INJ 4 MG/ML VIAL ONE (18:30)
[2018-08-07] MEDS ORDERED: fentaNYL citrate 100 MCG/2 ML VIAL ONE (18:30)
[2018-08-07] MEDS ORDERED: LIDOCAINE HCL 2% 2 ML VIAL/AMP(20MG/ML) INFIL ONE (18:30)
[2018-08-07] MEDS ORDERED: ROCURONIUM BROMIDE 10 MG/ML 5 ML VIAL ONE (18:30)
[2018-08-07] MEDS ORDERED: MIDAZOLAM HCL 1 MG/ML 2ML VIAL ONE (18:30)
[2018-08-07] MEDS ORDERED: CIPROFLOXACIN 400 MG/200 ML BAG IV STA (19:09)
[2018-08-07] MEDS ORDERED: metroNIDAZOLE 500 MG/100 ML BAG IV STA (19:09)
[2018-08-07] MEDS ORDERED: METOCLOPRAMIDE HCL INJ 5 MG/ML 2 ML VIAL ONE (19:36)
[2018-08-07] MEDS ORDERED: NEOSTIGMINE METHYLSULFATE 5 MG/5 ML SYR ONE (19:36)
[2018-08-07] MEDS ORDERED: GLYCOPYRROLATE 0.2 MG/ML VIAL ONE (19:36)
--- NOTE | 2018-08-07 19:38 | Post Operative Brief Note ---
Immediate Post Op Note v1 Date of Surgery August 07, 2018 Pre & Post Diagnosis Operation Date: 08/07/18 18:05 Pre-Op Diagnosis: Abdominal Pain, acute appendicitis Post-Op Diagnosis: Abdominal Pain, acute appendicitis Procedure Operation Date: 08/07/18 18:05 Actual Procedures p Laparoscopic Appendectomy(Not Applicable) - Jose Miguel Sidhu MD Surgeon Jose Miguel Sidhu MD [employer] operating room surgical technologist Estimated Blood Loss 5 Findings Consistent with Post-Op Diagnosis acute appendicitis Fluids 1000ml Specimens appendix Drains Stoddard Catheter (Inserted by Delvis Baires) Anesthesia Type General Complications none Disposition Accompanied Patient To Recovery: Yes Disposition: Recovery Room Overlapping Procedure I was immediately available: during the entire case.
[2018-08-07] MEDS ORDERED: KETOROLAC 30 MG/ML VIAL ONE (20:02)
[2018-08-07] MEDS: HYDROmorphone INJ 1 MG/ML SYRINGE IV PRN ×4 (20:12→20:27)
[2018-08-07] MEDS ORDERED: HYDROmorphone INJ 0.5 MG/0.5 ML SYR ONE ×2 (20:13→20:20)
--- NOTE | 2018-08-07 21:03 | Anesthesiology Progress Note ---
Date of Service August 07, 2018 Anesthesia Post Procedure Vital Signs Vital Signs: Temp Pulse Pulse Resp BP BP Pulse Ox 08/07/18 20:40 36.6 C 58 L 18 102/46 L 100 08/07/18 20:30 58 L 18 102/41 L 100 08/07/18 20:20 57 L 18 102/46 L 100 08/07/18 20:10 59 L 20 107/52 L 100 08/07/18 20:00 71 20 122/55 L 100 08/07/18 19:50 36.9 C 71 20 119/63 100 08/07/18 18:12 73 18 140/77 100 08/07/18 17:51 78 18 139/78 98 08/07/18 16:00 80 18 120/65 94 08/07/18 15:54 68 15 116/74 94 08/07/18 15:53 97 08/07/18 14:34 36.3 C L 74 20 144/76 H 99 Pain Intensity Bilateral Abdomen: Pain Intensity: 0 Transfer of Care Handoff Completed per policy Notes Mental Status: alert / awake / arousable Patient Amnestic to Procedure: Yes Nausea / Vomiting: adequately controlled Pain: adequately controlled Airway Patency, RR, SpO2: stable & adequate BP & HR: stable & adequate Hydration State: stable & adequate Anesthetic Complications: no major complications apparent
[2018-08-07] MEDS: HYDROmorphone INJ 0.5 MG/0.5 ML SYR IV PRN (23:25)
--- NOTE | 2018-08-08 | Emergency Department Note ---
Entered by Mitesh Baird acting as a scribe for Joey Boyd MD History of Present Illness General Chief complaint: Abdominal Pain Stated complaint: ABD PAIN, DIZZINESS Time Seen by Provider: 08/07/18 14:54 Source: patient History of Present Illness Onset (ago): day(s) (last night) Location: abdomen (lower) Pain Consistency: + constant Maximum Pain Intensity: 10 Quality: + other (bilateral lower abdominal pain) Associated symptoms: + other (nausea and dizziness without vomiting) The patient is a 32 year old male who presents to the Emergency Room with complaints of constant bilateral lower abdominal pain beginning last night. The patient reports that his pain significantly worsened today. He reports some nausea and dizziness without vomiting. He states that he had a brown watery bowel movement prior to arrival without blood. The patient denies a history of abdominal pain or back pain. He states that he still has his appendix. He does note a history of chest pain for which he was evaluated that was felt to be muscular. Two years ago he states that he also developed sepsis caused by strep throat. He reports a history of asthma. He denies any other medical problems or prescribed medications. Home Medications Home Medications Medication Instructions Recorded Confirmed Type levofloxacin 500 mg tablet 500 mg PO DAILY #5 tab 08/03/18 08/07/18 Rx Allergies Allergy/AdvReac Type Severity Reaction Status Date / Time amoxicillin Allergy Intermediate Hives Verified 08/07/18 15:45 doxycycline Allergy Intermediate Hives Verified 08/07/18 15:45 Past Med/Surg History Medical History Appendicitis (Acute) Asthma Family History Other Cancer Diabetes Heart disease Hypertension Social History Preferred Language: Hungarian Communication Ability: Effective Internet Sales Consultant Required: No Beliefs That Will Affect Care: None Current Living Situation: Family Other Information That Helps Us Care for You: No Feels Safe at Home: Yes Safety Concerns: Feels Safe At This Time Smoking Status: Never smoker Hx Alcohol Use: Yes Alcohol type: beer Hx Substance Use: No Review of Systems See HPI for pertinent positives & negatives. and A total of 10 systems reviewed and were otherwise negative Physical Exam Vital Signs Vital Signs - 24 hr 08/07/18 14:34 08/07/18 15:53 08/07/18 15:54 Temperature 36.3 C L Temperature Source Oral Sepsis Recent Fever Within 48 Hours No Sepsis New/Unexplained Change in Mental Status No Sepsis Action Taken by Nursing No Action Required Pulse Rate 74 Pulse Rate [Left Finger] 68 Pulse Rhythm Regular Pulse Rhythm [Left Finger] Regular Pulse Strength Normal Pulse Strength [Left Finger] Respiratory Rate 20 15 Respiratory Effort / Characteristics Non-Labored Spontaneous Non-Labored Respiratory Depth Normal Normal Respiratory Pattern Regular Regular Blood Pressure 144/76 H Blood Pressure [Right Arm] 116/74 Blood Pressure Mean 98 Blood Pressure Mean [Right Arm] 88 Blood Pressure Position Sitting Blood Pressure Position [Right Arm] Pulse Oximetry 99 97 94 Oxygen Delivery Method Room Air Room Air Room Air Oxygen Flow Rate 08/07/18 16:00 08/07/18 17:51 08/07/18 18:12 Temperature Temperature Source Sepsis Recent Fever Within 48 Hours Sepsis New/Unexplained Change in Mental Status Sepsis Action Taken by Nursing Pulse Rate 73 Pulse Rate [Left Finger] 80 78 Pulse Rhythm Pulse Rhythm [Left Finger] Regular Regular Pulse Strength Pulse Strength [Left Finger] Normal Respiratory Rate 18 18 18 Respiratory Effort / Characteristics Non-Labored Non-Labored Respiratory Depth Normal Normal Respiratory Pattern Regular Regular Blood Pressure 140/77 Blood Pressure [Right Arm] 120/65 139/78 Blood Pressure Mean Blood Pressure Mean [Right Arm] 83 98 Blood Pressure Position Blood Pressure Position [Right Arm] Lying Pulse Oximetry 94 98 100 Oxygen Delivery Method Room Air Room Air Nasal Cannula Oxygen Flow Rate 2 GENERAL: Awake, alert, anxious-appearing, rolling around in bed holding the abdomen. HENT: Normocephalic, atraumatic. Oropharynx with dry mucous membranes and otherwise unremarkable. EYES: Normal conjunctiva. Sclera non-icteric. NECK: Supple. No nuchal rigidity. FROM. No JVD. RESPIRATORY:Clear to auscultation bilaterally. CARDIAC: Regular rate, normal rhythm. Extremities warm and well perfused. Pulses equal. ABDOMEN: Soft, non-distended. Generalized tenderness of abdomen. No rebound or guarding. No masses. RECTAL: Deferred. MUSCULOSKELETAL: Chest examination reveals no tenderness. The back is symmetrical on inspection without obvious abnormality. There is no CVA tenderness to palpation. No joint edema. LOWER EXTREMITIES: Calves are equal size bilaterally and non-tender. No edema. No discoloration. NEURO: Normal sensorium. No sensory or motor deficits noted. SKIN: No rash or jaundice noted. Course 1504: The patient was evaluated in room B8. A complete history and physical examination were performed. 1731: I consulted Dr. Sidhu General Surgery. He will evaluate the patient. Administered Medications Hydromorphone HCl (Dilaudid) 0.5 mg IV Q3H PRN PRN Reason: Pain Stop: 08/21/18 19:44 Last Admin: 08/08/18 02:30 Dose: 0.5 mg Documented by: [id number] Admin: 08/07/18 23:25 Dose: 0.5 mg Documented by: [id number] Discontinued Medications Bacitracin (Bacitracin) Confirm Administered Dose 45 appln .ROUTE .STK-MED ONE Stop: 08/07/18 18:20 Last Admin: 08/07/18 19:30 Dose: 45 appln Documented by: [id number] Bupivacaine HCl (Marcaine 0.5% Mpf) Confirm Administered Dose 30 ml .ROUTE .STK- MED ONE Stop: 08/07/18 18:20 Last Admin: 08/07/18 19:31 Dose: 17 ml Documented by: [id number] Hydromorphone HCl (Dilaudid) 0.25 mg IV Q5M PRN PRN Reason: PACU Use Only-Pain Stop: 08/07/18 23:12 Last Admin: 08/07/18 20:27 Dose: 0.25 mg Documented by: [id number] Admin: 08/07/18 20:22 Dose: 0.25 mg Documented by: [id number] Admin: 08/07/18 20:17 Dose: 0.25 mg Documented by: [id number] Admin: 08/07/18 20:12 Dose: 0.25 mg Documented by: [id number] Hydromorphone HCl (Dilaudid) Confirm Administered Dose 0.5 mg .ROUTE .STK-MED ONE Stop: 08/07/18 20:14 Last Admin: 08/07/18 21:34 Dose: Not Given Documented by: [id number] Hydromorphone HCl (Dilaudid) Confirm Administered Dose 0.5 mg .ROUTE .STK-MED ONE Stop: 08/07/18 20:21 Last Admin: 08/07/18 21:34 Dose: Not Given Documented by: [id number] Sodium Chloride (Nss 1000ml) 1,000 mls @ 999 mls/hr IV .Q1H1M YORDY Stop: 08/07/18 17:15 Last Infusion: 08/07/18 18:04 Dose: 0 mls/hr Documented by: [id number] Admin: 08/07/18 16:55 Dose: 999 mls/hr Documented by: [id number] Infusion: 08/07/18 16:53 Dose: 0 mls/hr Documented by: [id number] Admin: 08/07/18 15:43 Dose: 999 mls/hr Documented by: [id number] Acetaminophen (Ofirmev) 1,000 mg in 100 mls @ 400 mls/hr IV NOW STA Stop: 08/07/18 15:23 Last Infusion: 08/07/18 16:32 Dose: 0 mls/hr Documented by: [id number] Admin: 08/07/18 15:41 Dose: 400 mls/hr Documented by: [id number] Ceftriaxone Sodium 2,000 mg/ (Dextrose) 70 mls @ 100 mls/hr IV NOW STA Stop: 08/07/18 18:16 Last Admin: 08/07/18 21:36 Dose: Not Given Documented by: [id number] Ciprofloxacin (Cipro) 400 mg in 200 mls @ 100 mls/hr IV NOW STA Stop: 08/07/18 21:08 Last Admin: 08/07/18 21:36 Dose: Not Given Documented by: [id number] Metronidazole (Flagyl) 500 mg in 100 mls @ 100 mls/hr IV NOW STA Stop: 08/07/18 20:08 Last Infusion: 08/07/18 21:35 Dose: 0 mls/hr Documented by: [id number] Admin: 08/07/18 19:15 Dose: 100 mls/hr Documented by: [id number] Ioversol (Optiray 320 100ml) 90 ml IV ONCE PRN PRN Reason: Interaction Checking Stop: 08/11/18 16:38 Last Admin: 08/07/18 16:40 Dose: 90 ml Documented by: [id number] Ketorolac Tromethamine (Toradol) 30 mg IV ONCE PRN PRN Reason: PACU Use Only-Pain Stop: 08/07/18 23:12 Last Admin: 08/07/18 20:03 Dose: 30 mg Documented by: [id number] Ketorolac Tromethamine (Toradol) Confirm Administered Dose 30 mg .ROUTE .STK-MED ONE Stop: 08/07/18 20:03 Last Admin: 08/07/18 21:34 Dose: Not Given Documented by: [id number] Lidocaine HCl (Xylocaine 1% (Local)) Confirm Administered Dose 20 ml .ROUTE .STK-MED ONE Stop: 08/07/18 18:20 Last Admin: 08/07/18 19:31 Dose: 17 ml Documented by: [id number] Morphine Sulfate (Morphine Sulfate) 8 mg IV NOW STA Stop: 08/07/18 15:10 Last Admin: 08/07/18 15:41 Dose: 8 mg Documented by: [id number] Morphine Sulfate (Morphine Sulfate) 8 mg IV NOW STA Stop: 08/07/18 17:22 Last Admin: 08/07/18 17:51 Dose: 8 mg Documented by: [id number] Ondansetron HCl (Zofran) 4 mg IV NOW STA Stop: 08/07/18 15:10 Last Admin: 08/07/18 15:41 Dose: 4 mg Documented by: [id number] Medical Decision Making Differential Diagnosis Differential diagnosis includes: appendicitis, diverticulitis, PUD, biliary pathology, UTI, pancreatitis, obstruction, mesenteric ischemia, aortic pathology, infections, inflammatory bowel disease, renal colic, as well as others were entertained. Medical Records Attestation: I reviewed the patient's medical records. Home Medications Current Medication List: was personally reviewed by me Laboratory Data Attestation: I reviewed the patient's lab results. Result diagrams: 08/07/18 15:25 08/07/18 15:25 Lab Results 08/07/18 08/07/18 08/07/18 Range/Units 15:25 15:25 15:25 WBC 13.92 H (4.8-10.8) K/uL RBC 5.26 (4.7-6.1) M/uL Hgb 16.1 (14.0-18.0) g/dL Hct 44.1 (42-52) % MCV 83.8 (80-100) fL MCH 30.6 (25-34) pg MCHC 36.5 H (32-36) g/dL RDW Std Deviation 37.9 (36.4-46.3) fL RDW Coeff of Luz Maria 12.5 (11.5-14.5) % Plt Count 226 (130-400) K/uL MPV 10.1 (7.4-10.4) fL Immature Gran % (Auto) 0.2 % Neut % (Auto) 74.5 % Lymph % (Auto) 18.7 % [place] % (Auto) 6.3 % Eos % (Auto) 0.2 % Baso % (Auto) 0.1 % Immature Gran # (Auto) 0.03 H (0.00-0.02) K/uL Neut # (Auto) 10.36 H (1.4-6.5) K/uL Lymph # (Auto) 2.60 (1.2-3.4) K/uL [place] # (Auto) 0.88 H (0.11-0.59) K/uL Eos # (Auto) 0.03 (0-0.5) K/uL Baso # (Auto) 0.02 (0-0.2) K/uL PT 10.9 (9.0-12.0) Seconds INR 1.1 (0.9-1.1) Sodium 140 (136-145) mmol/L Potassium 3.5 (3.5-5.1) mmol/L Chloride 106 (98-107) mmol/L Carbon Dioxide 22 (21-32) mmol/L Anion Gap 12.0 H (3-11) BUN 12 (7-18) mg/dl Creatinine 1.34 (0.6-1.4) mg/dl Est Cr Clr Drug Dosing 81.3 ml/min Est GFR ( Amer) 80.7 Est GFR (Non-Af Amer) 69.6 BUN/Creatinine Ratio 8.8 L (10-20) Glucose 103 H (70-99) mg/dl Calcium 9.9 (8.5-10.1) mg/dl Total Bilirubin 0.5 (0.2-1) mg/dl AST 18 (15-37) U/L ALT 23 (12-78) U/L Alkaline Phosphatase 85 (45-117) U/L Total Protein 7.5 (6.4-8.2) gm/dl Albumin 4.2 (3.4-5.0) gm/dl Globulin 3.3 (2.5-4.0) gm/dl Albumin/Globulin Ratio 1.3 (0.9-2) Lipase 155 (73-393) U/L Urine Color Urine Appearance (Clear) Urine pH (4.5-7.5) Ur Specific [place] (1.000-1.030) Urine Protein (Negative) Urine Glucose (UA) (Negative) Urine Ketones (Negative) Urine Blood (Negative) Urine Nitrite (Negative) Urine Bilirubin (Negative) Urine Urobilinogen (Negative) Ur Leukocyte Esterase (Negative) 08/07/18 Range/Units 16:26 WBC (4.8-10.8) K/uL RBC (4.7-6.1) M/uL Hgb (14.0-18.0) g/dL Hct (42-52) % MCV (80-100) fL MCH (25-34) pg MCHC (32-36) g/dL RDW Std Deviation (36.4-46.3) fL RDW Coeff of Luz Maria (11.5-14.5) % Plt Count (130-400) K/uL MPV (7.4-10.4) fL Immature Gran % (Auto) % Neut % (Auto) % Lymph % (Auto) % [place] % (Auto) % Eos % (Auto) % Baso % (Auto) % Immature Gran # (Auto) (0.00-0.02) K/uL Neut # (Auto) (1.4-6.5) K/uL Lymph # (Auto) (1.2-3.4) K/uL [place] # (Auto) (0.11-0.59) K/uL Eos # (Auto) (0-0.5) K/uL Baso # (Auto) (0-0.2) K/uL PT (9.0-12.0) Seconds INR (0.9-1.1) Sodium (136-145) mmol/L Potassium (3.5-5.1) mmol/L Chloride (98-107) mmol/L Carbon Dioxide (21-32) mmol/L Anion Gap (3-11) BUN (7-18) mg/dl Creatinine (0.6-1.4) mg/dl Est Cr Clr Drug Dosing ml/min Est GFR ( Amer) Est GFR (Non-Af Amer) BUN/Creatinine Ratio (10-20) Glucose (70-99) mg/dl Calcium (8.5-10.1) mg/dl Total Bilirubin (0.2-1) mg/dl AST (15-37) U/L ALT (12-78) U/L Alkaline Phosphatase (45-117) U/L Total Protein (6.4-8.2) gm/dl Albumin (3.4-5.0) gm/dl Globulin (2.5-4.0) gm/dl Albumin/Globulin Ratio (0.9-2) Lipase (73-393) U/L Urine Color Yellow Urine Appearance Clear (Clear) Urine pH >= 9.0 H (4.5-7.5) Ur Specific [place] 1.011 (1.000-1.030) Urine Protein Negative (Negative) Urine Glucose (UA) Negative (Negative) Urine Ketones Negative (Negative) Urine Blood Negative (Negative) Urine Nitrite Negative (Negative) Urine Bilirubin Negative (Negative) Urine Urobilinogen Negative (Negative) Ur Leukocyte Esterase Negative (Negative) Imaging Data Radiologist's Impression: Radiology results as stated below per my review and the radiologist's interpretation: CT OF THE ABDOMEN AND PELVIS WITH CONTRAST CLINICAL HISTORY: lower abdominal pain, nausea COMPARISON STUDY: CT of the abdomen pelvis August 10, 2016. Abdominal ultrasound August 11, 2016. TECHNIQUE: Following IV administration of 90 mL of Optiray-320, axial images of the abdomen and pelvis were obtained from the lung bases to the proximal femurs. Images were reviewed in the axial, sagittal, and coronal planes. IV contrast was administered without complication. Automated exposure control was utilized for the study. A dose lowering technique was utilized adhering to the principles of ALARA. CT DOSE: 600.70 mGycm FINDINGS: Lung bases are clear. The liver, spleen, adrenal glands, kidneys and pancreas are normal. There is no biliary or pancreatic ductal dilatation. There is no hydronephrosis. No pneumatosis, free air or portal venous gas is present. There is no peripancreatic or pericholecystic infiltration. There is no evidence for a bowel obstruction. Borderline dilatation of the appendiceal tip, measuring 7 mm is noted. The mid to distal appendix is fluid-filled. No periappendiceal infiltration is noted. There is no free air or abscess. Trace fluid within the pelvis is noted. No suspicious skeletal lesions are noted. IMPRESSION: Fluid filled borderline dilated appendix. No periappendiceal abscess or free air. The findings are not definitive but raise the possibility of early acute appendicitis. Trace fluid within the pelvis. Electronically signed by: Yusef Thornton M.D. 08/07/2018 4:59 PM Blood Pressure Blood Pressure Findings: Normal blood pressure Blood Pressure Disposition: did not require urgent referral MDM Narrative The patient is a pleasant 32 y/o gentleman with a pmhx of asthma who presents to the emergency department with lower abdomianl pain per HPI. On arrival the pa tient is uncomfortable but in NAD, AFVSS. Pateint appears clinically dry. He exhibits generalized abdominal ttp without guarding. WBC 13.9. H/H and platelets wnl. Chemsitry without acidosis. LFTs unremarkable. CT abd/pelvis demonstrates findings c/w appendicitis. Patient orderd for CTX. Case d/w Dr. Sidhu, general surgery on-call, who evaluated the patient and will admit for OR. Patient updated and agreeable. Impression & Plan Appendicitis Discharge Plan Visit Data *Final* Discharge Date/Time: 08/07/18 21:41 Chief Complaint: Abdominal Pain Stated Complaint: ABD PAIN, DIZZINESS ED Provider: Joey Boyd Discharge Problem: Appendicitis Patient Disposition: Being Evaluated by Surgeon Discharge Instructions Interventions: ED Discharge Assessment Last Done: 08/07/18 18:12 Discharge Problem: Appendicitis Qualifiers: Appendicitis type: acute appendicitis Acute appendicitis type: unspecified acute appendicitis type Qualified Code(s): K35.80 - Unspecified acute appendicitis The scribe's documentation has been prepared under my direction and personally reviewed by me in its entirety. I confirm that the note above accurately reflects all work, treatment, procedures, and medical decision making performed by me.
[2018-08-08] MEDS: HYDROmorphone INJ 0.5 MG/0.5 ML SYR IV PRN ×2 (02:30→06:32)
[2018-08-08] MEDS: metroNIDAZOLE 500 MG/100 ML BAG IV SCH ×3 (04:22→20:19)
[2018-08-08] MEDS: OXYCODONE/ACETAMINOPHEN 5mg/325mg TAB PO PRN ×5 (04:22→22:45)
[2018-08-08] MEDS: LACTATED RINGER'S 1,000 ML IV SCH ×3 (04:37→20:20)
--- NOTE | 2018-08-08 06:05 | Operative Report ---
DATE OF OPERATION: 08/07/2018 PREOPERATIVE DIAGNOSIS: Acute appendicitis. POSTOPERATIVE DIAGNOSIS: Acute appendicitis. PROCEDURE: Laparoscopic appendectomy. SURGEON: Jose Miguel Sidhu MD ANESTHESIA: General. ESTIMATED BLOOD LOSS: About 5 mL. FINDINGS: Acute appendicitis. COMPLICATIONS: None. INDICATIONS FOR THE PROCEDURE: This is a 32-year-old gentleman who presented to ED with 1-day history of right lower quadrant pain. The patient had a CT scan diagnosis of acute appendicitis. I recommended to do a laparoscopic appendectomy, possible open. I did talk to the patient and patient's father about the benefits, risks, and alternate procedures. I indicated the risks may include but not limited such as bleeding, infection, injury to the bowel, even , they understand. The patient signed informed consent and I answered all questions. DETAILS OF PROCEDURE: We brought in the patient to the OR, put the patient in the supine position. The patient received SCDs on bilateral legs to prevent DVT. Also the patient received 400 mg Cipro IV for prophylactic antibiotic and also the patient received 500 mg Flagyl for IV antibiotic. The patient received general anesthesia without difficulty. Also, the patient received Stoddard catheter insertion. The abdomen was prepped and draped in routine sterile fashion after time-out. I injected local anesthesia by using 1% lidocaine mixed with 0.5% Marcaine just above umbilicus, then I made a small incision just above umbilicus, opened fascia and opened peritoneum under direct vision, put a Luciano trocar in, connected to CO2 to create pneumoperitoneum. Flow rate at 6 liter per minute. Pressure not more than 14 mmHg. Once we got a nice pneumoperitoneum, we put the camera in, looked around the abdomen. Has normal finding on the small bowel, large bowel. Appendix showed enlarged inflammation, confirmed diagnosis of acute appendicitis. Then we put another two 5 mm trocar on the left lower quadrant and we used a harmonic to take down the appendiceal, rechecked, no active bleeding. Then, we used a 45-mm Endo-BERNARDO stapler for transection on the base of the appendix, rechecked the staple line, intact, no leak, no active bleeding, and no free fluid in the abdomen. Then we removed the appendix through the catch bag, then we reinserted Luciano trocar in, connected to CO2 to create pneumoperitoneum. Again looked around the abdomen, no active bleeding, no leak from the staple line. Then we removed all trocar under direct vision. No active bleeding from the trocar site. Pneumoperitoneum was released. Then I closed the umbilical incision, fascial layer by using #1 Vicryl [id number] x2, closed subcutaneous layer by using 2-0 Vicryl interruptedly, closed skin by using 4-0 Vicryl continuous running, closed another two 5 mm trocar skin only by using 4-0 Vicryl. Then we put the dressing on. The patient tolerated the procedure well. All instrument, needle, and sponge counts were correct x2 at the end of case. The patient transferred to recovery room in stable condition. After procedure, I did talk to the patient and family member about the OR finding and procedure we did. The specimen sent to pathology. I attest to the content of the Intraoperative Record and any orders documented therein. Any exception s are noted below.
[2018-08-08 06:14] LABS: Basophils # (auto) 0.01 K/uL (0-0.2); Basophils % (auto) 0.1 %; Eosinophils # (auto) 0.03 K/uL (0-0.5); Eosinophils % (auto) 0.4 %; Hematocrit (blood only) 36.4 % (42-52); Hemoglobin 12.7 g/dL (14.0-18.0); Immature Granulocytes # (auto) 0.01 K/uL (0.00-0.02); Immature Granulocytes % (auto) 0.1 %; Lymphocytes # (auto) 1.89 K/uL (1.2-3.4); Lymphocytes % (auto) 28.3 %; Mean Corpuscular Hgb Conc 34.9 g/dL (32-36); Mean Corpuscular Volume 85.6 fL (80-100); Monocytes # (auto) 0.61 K/uL (0.11-0.59); Monocytes % (auto) 9.1 %; Neutrophils # (auto) 4.13 K/uL (1.4-6.5); Platelet Count 154 K/uL (130-400); RDW Coefficient of Variation 12.7 % (11.5-14.5); RDW Standard Deviation 39.8 fL (36.4-46.3); Red Blood Count 4.25 M/uL (4.7-6.1); White Blood Count 6.68 K/uL (4.8-10.8)
--- NOTE | 2018-08-08 07:33 | Anesthesiology Progress Note ---
Date of Service August 08, 2018 Anesthesia Post Procedure Vital Signs Vital Signs: Temp Pulse Pulse Resp BP BP Pulse Ox 08/08/18 06:55 37.0 C 64 16 111/65 97 08/08/18 05:59 109/70 08/08/18 03:10 36.9 C 70 16 103/55 L 96 08/07/18 23:54 37.0 C 78 16 104/58 L 95 08/07/18 22:54 36.6 C 60 16 102/54 L 94 08/07/18 21:54 37 C 60 16 106/56 L 93 08/07/18 21:20 67 14 100/62 93 08/07/18 20:50 37 C 77 14 100/55 L 98 08/07/18 20:40 36.6 C 58 L 18 102/46 L 100 08/07/18 20:30 58 L 18 102/41 L 100 08/07/18 20:20 57 L 18 102/46 L 100 08/07/18 20:10 59 L 20 107/52 L 100 08/07/18 20:00 71 20 122/55 L 100 08/07/18 19:50 36.9 C 71 20 119/63 100 08/07/18 18:12 73 18 140/77 100 08/07/18 17:51 78 18 139/78 98 08/07/18 16:00 80 18 120/65 94 08/07/18 15:54 68 15 116/74 94 08/07/18 15:53 97 08/07/18 14:34 36.3 C L 74 20 144/76 H 99 Pain Intensity Bilateral Abdomen: Pain Intensity: 0 Notes Mental Status: alert / awake / arousable and participated in evaluation Nausea / Vomiting: adequately controlled Pain: adequately controlled Airway Patency, RR, SpO2: stable & adequate BP & HR: stable & adequate Hydration State: stable & adequate
[2018-08-08] MEDS: CIPROFLOXACIN 400 MG/200 ML BAG IV SCH ×2 (08:20→20:18)
[2018-08-08] MEDS: HYDROmorphone INJ 1 MG/ML SYRINGE IV PRN ×3 (09:41→20:19)
[2018-08-08] MEDS ORDERED: BISACODYL 5 MG TABEC PO ONE (17:25)
--- NOTE | 2018-08-08 17:25 | Surgery Progress Note ---
Date of Service pt is doing better, less abdominal pain, no nausea, no vomiting, August 08, 2018 Assessment & Plan (1) Appendicitis: pt is a 32 year-old male who presents to Er with one day history RLQ pain, CT scan dx acute appendicitis, IMP: acute abdominal pain, acute appendicitis, Plan, I recommend to do laparoscopic appendectomy, possible open, D/W benefits, risks and alternatives of the surgery, the risks - infection, bleeding, abscess, injury bowel, , pt and his father understood, they agree with the surgery, I answered all questions, 08/08/2018 5:25PM doing fine, will F/U repeta lab in am, Physical Exam Constitutional: WD/WN, vitals as above well developed and well nourished ENMT: external ear and nose normal, oropharynx normal Neck: trachea midline, no thyromegaly Respiratory: normal respiratory effort, lungs clear to auscultation normal respiratory effort Cardiovascular: RRR, no murmur, no edema Rate/Rhythm: regular rate and regular rhythm Heart Sounds: normal S1 and normal S2 Gastrointestinal (Abdomen): normal bowel sounds, soft, nontender, no hepatosplenomegaly Percussion/Palpation: + abdomen tender and abdomen soft no distend, all incisions intact, no redness, Musculoskeletal: no cyanosis or clubbing, extremities motor strength 5/5 Neurologic: patellar DTR's 2+ bilat, sensation intact Psychiatric: A+Ox3, euthymic affect Orientation: alert and oriented x 3 Genitourinary: no testicular masses, no penis abnormality Lymphatic: no cervical or axillary lymphadenopathy Results & Data Vital Signs (Past 12 Hours) Vital Signs Temp Pulse Resp BP Pulse Ox 08/08/18 17:22 37 C 66 16 100/62 96 08/08/18 15:01 36.5 C 72 16 111/71 98 08/08/18 06:55 37.0 C 64 16 111/65 97 08/08/18 05:59 109/70 (1) Appendicitis Acute appendicitis type: unspecified acute appendicitis type Appendicitis type: acute appendicitis Qualified Code(s): K35.80 - Unspecified acute appendicitis
[2018-08-09] MEDS: HYDROmorphone INJ 1 MG/ML SYRINGE IV PRN (02:35)
[2018-08-09] MEDS: metroNIDAZOLE 500 MG/100 ML BAG IV SCH (04:11)
[2018-08-09] MEDS: LACTATED RINGER'S 1,000 ML IV SCH (04:12)
[2018-08-09 06:43] LABS: Basophils # (auto) 0.02 K/uL (0-0.2); Basophils % (auto) 0.4 %; Eosinophils # (auto) 0.04 K/uL (0-0.5); Eosinophils % (auto) 0.8 %; Hematocrit (blood only) 37.8 % (42-52); Hemoglobin 13.1 g/dL (14.0-18.0); Immature Granulocytes # (auto) 0.02 K/uL (0.00-0.02); Immature Granulocytes % (auto) 0.4 %; Lymphocytes # (auto) 2.26 K/uL (1.2-3.4); Lymphocytes % (auto) 44.6 %; Mean Corpuscular Hgb Conc 34.7 g/dL (32-36); Mean Corpuscular Volume 86.9 fL (80-100); Mean Platelet Volume 10.3 fL (7.4-10.4); Monocytes # (auto) 0.39 K/uL (0.11-0.59); Monocytes % (auto) 7.7 %; Neutrophils # (auto) 2.34 K/uL (1.4-6.5); Neutrophils % (auto) 46.1 %; Platelet Count 159 K/uL (130-400); RDW Coefficient of Variation 12.6 % (11.5-14.5); RDW Standard Deviation 40.5 fL (36.4-46.3); Red Blood Count 4.35 M/uL (4.7-6.1); White Blood Count 5.07 K/uL (4.8-10.8)
[2018-08-09 07:29] LABS: Albumin Globulin Ratio 1.2 (0.9-2); Albumin Level 3.1 gm/dl (3.4-5.0); BUN Creatinine Ratio 5.2 (10-20); Bilirubin,Total 0.6 mg/dl (0.2-1); Calcium 8.5 mg/dl (8.5-10.1); Creatinine Clr Calc Pharmacy 83.8 ml/min; Est GFR (African American) 83.7; Est GFR (Non-African American) 72.2; Globulin 2.6 gm/dl (2.5-4.0); Potassium 3.3 mmol/L (3.5-5.1); Total Protein 5.7 gm/dl (6.4-8.2)
[2018-08-09] MEDS: CIPROFLOXACIN 400 MG/200 ML BAG IV SCH (07:45)
[2018-08-09] MEDS ORDERED: POTASSIUM CHLORIDE 10 MEQ TABCR PO STA (09:16)
--- NOTE | 2018-08-09 09:41 | Surgery Progress Note ---
Date of Service pt is doing much better, less abdominal pain, passed gas, he tolerated diet, no nausea, no vomiting, August 09, 2018 Assessment & Plan (1) Appendicitis: pt is a 32 year-old male who presents to Er with one day history RLQ pain, CT scan dx acute appendicitis, IMP: acute abdominal pain, acute appendicitis, Plan, I recommend to do laparoscopic appendectomy, possible open, D/W benefits, risks and alternatives of the surgery, the risks - infection, bleeding, abscess, injury bowel, , pt and his father understood, they agree with the surgery, I answered all questions, 08/08/2018 5:25PM doing fine, will F/U repeta lab in am, 08/09/2018 9:40am doing better, no significant abdominal pain, pt wants to go home today, F/U 1 week, the post-op care instruction was given, Physical Exam Constitutional: WD/WN, vitals as above well developed and well nourished ENMT: external ear and nose normal, oropharynx normal Neck: trachea midline, no thyromegaly Respiratory: normal respiratory effort, lungs clear to auscultation normal respiratory effort Cardiovascular: RRR, no murmur, no edema Rate/Rhythm: regular rate and regular rhythm Heart Sounds: normal S1 and normal S2 Gastrointestinal (Abdomen): normal bowel sounds, soft, nontender, no hepatosplenomegaly Percussion/Palpation: abdomen soft no tenderness, BS + Musculoskeletal: no cyanosis or clubbing, extremities motor strength 5/5 Neurologic: patellar DTR's 2+ bilat, sensation intact Psychiatric: A+Ox3, euthymic affect Orientation: alert and oriented x 3 Genitourinary: no testicular masses, no penis abnormality Lymphatic: no cervical or axillary lymphadenopathy Results & Data Vital Signs (Past 12 Hours) Vital Signs Temp Pulse Resp BP Pulse Ox 08/08/18 23:19 36.9 C 56 L 14 109/72 97 Laboratory Results Abnormal lab results 08/09/18 08/09/18 Range/Units 06:06 06:06 RBC 4.35 L (4.7-6.1) M/uL Hgb 13.1 L (14.0-18.0) g/dL Hct 37.8 L (42-52) % Potassium 3.3 L (3.5-5.1) mmol/L Chloride 108 H (98-107) mmol/L BUN/Creatinine Ratio 5.2 L (10-20) Total Protein 5.7 L D (6.4-8.2) gm/dl Albumin 3.1 L (3.4-5.0) gm/dl (1) Appendicitis Acute appendicitis type: unspecified acute appendicitis type Appendicitis type: acute appendicitis Qualified Code(s): K35.80 - Unspecified acute appendicitis
--- NOTE | 2018-08-09 09:58 | Surgery Progress Note ---
Date of Service pt is doing much better, she tolerated diet, no nausea, no vomiting,less abdominal pain, August 09, 2018 Assessment & Plan (1) Appendicitis: pt is a 32 year-old male who presents to Er with one day history RLQ pain, CT scan dx acute appendicitis, IMP: acute abdominal pain, acute appendicitis, Plan, I recommend to do laparoscopic appendectomy, possible open, D/W benefits, risks and alternatives of the surgery, the risks - infection, bleeding, abscess, injury bowel, , pt and his father understood, they agree with the surgery, I answered all questions, 08/08/2018 5:25PM doing fine, will F/U 08/09/2018, 9:56am doing much better, pt wants to go home today, pt will see her pain manage clinic today, for pain medicine, F/U Dr. Miller in 1-2 weeks, the post-op care instruction was given, I answered all questions, repeta lab in am, 08/09/2018 9:40am doing better, no significant abdominal pain, pt wants to go home today, F/U 1 week, the post-op care instruction was given, Physical Exam Constitutional: WD/WN, vitals as above well developed and well nourished ENMT: external ear and nose normal, oropharynx normal Neck: trachea midline, no thyromegaly Respiratory: normal respiratory effort, lungs clear to auscultation normal respiratory effort Cardiovascular: RRR, no murmur, no edema Rate/Rhythm: regular rate and regular rhythm Heart Sounds: normal S1 and normal S2 Gastrointestinal (Abdomen): normal bowel sounds, soft, nontender, no hepatosplenomegaly Percussion/Palpation: abdomen soft NT, ND BS + all i ncisions intact Musculoskeletal: no cyanosis or clubbing, extremities motor strength 5/5 Neurologic: patellar DTR's 2+ bilat, sensation intact Psychiatric: A+Ox3, euthymic affect Orientation: alert and oriented x 3 Genitourinary: no testicular masses, no penis abnormality Lymphatic: no cervical or axillary lymphadenopathy Results & Data Vital Signs (Past 12 Hours) Vital Signs Temp Pulse Resp BP Pulse Ox 08/09/18 09:48 36.9 C 56 L 14 109/72 97 08/08/18 23:19 36.9 C 56 L 14 109/72 97 Laboratory Results Abnormal lab results 08/09/18 08/09/18 Range/Units 06:06 06:06 RBC 4.35 L (4.7-6.1) M/uL Hgb 13.1 L (14.0-18.0) g/dL Hct 37.8 L (42-52) % Potassium 3.3 L (3.5-5.1) mmol/L Chloride 108 H (98-107) mmol/L BUN/Creatinine Ratio 5.2 L (10-20) Total Protein 5.7 L D (6.4-8.2) gm/dl Albumin 3.1 L (3.4-5.0) gm/dl (1) Appendicitis Acute appendicitis type: unspecified acute appendicitis type Appendicitis type: acute appendicitis Qualified Code(s): K35.80 - Unspecified acute appendicitis
[2018-08-09] MEDS: OXYCODONE/ACETAMINOPHEN 5mg/325mg TAB PO PRN (10:37)
--- NOTE | 2018-08-09 13:29 | Discharge Summary ---
ADMITTING DIAGNOSIS: Acute appendicitis. DISCHARGE DIAGNOSIS: Acute appendicitis. PROCEDURE: Laparoscopic appendectomy. SURGEON: Jose Miguel Sidhu MD. DETAILS OF DISCHARGE SUMMARY: This is a 32-year-old gentleman who presented to the ED with 1 day history of abdominal pain. The patient had a CT scan diagnosis of acute appendicitis. We took the patient to the OR. We did a laparoscopic appendectomy. The patient tolerated the procedure well and the patient stayed in the hospital for 2 days for abdominal pain. After procedure, now the patient feels much better and no significant abdominal pain, no nausea, no vomiting. He tolerated diet. PHYSICAL EXAMINATION: VITAL SIGNS: Temperature is 36.9, heart rate 56, respiratory rate 14, blood pressure 109/72, O2 saturation 97% on room air. GENERAL: The patient is alert, awake, oriented x3. HEENT: Within normal limitation. NECK: No JVD. CHEST: Bilateral lung sounds clear. HEART: Normal S1, S2. No murmur. ABDOMEN: Soft, nondistended. All dressings intact. No redness. EXTREMITIES: No edema. The patient wanted to go home today. I gave the patient postop care instructions. The patient understands. I will follow up the patient in 1-2 weeks in my office.
== END 2018-08-09 12:04 | disposition home or self-care (01) ==
LOC: ED 14:33 → 3E 18:20 → OR 18:20